=== PATIENT | male | born 1955 | race Caucasian/White ===

== ENCOUNTER 2023-05-20 14:30 | Inpatient (IN) | payer MEDICARE, OTHER, SELFPAY ==
[2023-05-20] VITALS (78 sets, daily range): BP systolic 96–143; BP diastolic 59–110; PULSE 74–130; RESP 8–33; TEMP 36.4–36.6; O2SAT 82–100; BMI 33.0; BMI 34.7
--- NOTE | 2023-05-20 14:43 | ECG_ITS ---
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
--- NOTE | 2023-05-20 14:45 | CT_ITS ---
[address] [address] Patient Name: BLANCA ADAMSON MRN: [id number] date: 1955 Sex: M Assigned Patient Location: ED.MAIN Current Patient Location: Accession/Order Number: [id number] Exam Date: 05/20/2023 16:00 Report Date: 05/20/2023 16:52 At the request of: ERYN DEL REAL Procedure: CT angio chest EXAM: CT angio chest HISTORY: PE COMPARISON: PET/CT from 12/05/[address] from 05/24/2022 TECHNIQUE: CT chest with intravenous contrast was performed with timing for the evaluation for pulmonary arteries. Multiplanar reformats were performed. MIP (maximum intensity projection) images or 3D post processing was performed. Dose reduction techniques were achieved by using automated exposure control and/or adjustment of mA and/or kV according to patient size and/or use of iterative reconstruction technique. FINDINGS: Lungs: Interval development of right lung volume loss with shift of the mediastinum to the right. Small to moderate right pleural effusion with right lower lobe consolidation, representing aspiration pneumonia. Mild bilateral centrilobular emphysema. Airways: Secretion is noted in right bronchus and right lower lobe bronchioles. Airways patent. Mediastinum: No adenopathy. Aorta: No aneurysm. Cardiac: Normal size. No pericardial effusion. Pulmonary vasculature: Diagnostic opacification of pulmonary arteries without evidence of pulmonary embolus. Normal morphology. Bones: No acute bony abnormality. Axilla: No adenopathy. Thyroid gland: No abnormality demonstrated on provided imaging. Soft tissues: Unremarkable. Upper abdomen: Small hiatal hernia. Additional findings: None. CT/CT angio chest IMPRESSION: No acute pulmonary embolism. Interval development of right lung volume loss with shift of the mediastinum to the right. Secretion is noted in right bronchus and right lower lobe bronchioles. Small to moderate right pleural effusion with right lower lobe consolidation, representing aspiration pneumonia. Electronically authenticated by: HELDER NUNN Date: 05/20/2023 16:52
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
[2023-05-20] MEDS: ALBUTEROL SULFATE 2.5 MG/3 ML VIAL NEB IH (15:15)
[2023-05-20 15:16] LABS: Basophils Percent Auto 0.2 % (0.2-2.0); Hematocrit 37.6 % (42.0-54.0); Hemoglobin 11.1 g/dL (14.0-18.0); Immature Granulocytes Abs Auto 0.13 10^3/uL (0.00-0.03); Immature Granulocytes Pct Auto 1.5 % (0.0-0.5); Lymphocytes Absolute Auto 0.5 10^3/uL (1.2-3.8); Lymphocytes Percent Auto 5.6 % (20.5-60.0); Mean Corpuscular HGB Conc 29.5 g/dL (29.9-35.2); Mean Corpuscular Hemoglobin 29.7 pg (25.9-34.0); Mean Corpuscular Volume 100.5 fL (80.0-94.0); Mean Platelet Volume 10.3 fL (9.5-13.5); Monocytes Absolute Auto 0.2 10^3/uL (0.3-0.8); Monocytes Percent Auto 2.3 % (1.7-12.0); Neutrophils Percent Auto 90.4 % (43.0-75.0); Platelet Count 124 10^3/uL (150-450); Red Blood Count 3.74 10^6/uL (4.70-6.10); Red Cell Distribution Width 17.7 % (11.0-15.0); White Blood Count 8.9 10^3/uL (4.0-11.0); pH VBG 7.328 (7.330-7.430)
--- NOTE | 2023-05-20 15:24 | CT_ITS ---
[address] [address] Patient Name: BLANCA ADAMSON MRN: [id number] date: 1955 Sex: M Assigned Patient Location: ED.MAIN Current Patient Location: ED.MAIN Accession/Order Number: [id number] Exam Date: 05/20/2023 16:00 Report Date: 05/20/2023 16:38 At the request of: ERYN DEL REAL Procedure: CT head/brain wo con EXAMINATION: CT head/brain wo con, 05/20/2023 4:00 PM EDT HISTORY: Confusion COMPARISON: None. TECHNIQUE: CT scan of the head was performed without IV contrast. CT dose reduction technique was used, including Automated Exposure Control. FINDINGS: BRAIN PARENCHYMA/CSF SPACES: Ventricles are normal in size for age. There is no hemorrhage, mass effect or midline shift. There are no other significant findings. PARANASAL SINUSES: Mild right ethmoid sinus mucosal thickening. SKULL BASE AND CALVARIUM: Normal. EXTRACRANIAL SOFT TISSUES: Normal. CT/CT head/brain wo con IMPRESSION: 1. No acute intracranial abnormality. 2. Mild right ethmoid sinus mucosal thickening. 3. MRI would be more sensitive for acute infarct if clinically indicated. Electronically authenticated by: ASHLEY LIEBERMAN Date: 05/20/2023 16:38
[2023-05-20 15:35] LABS: Partial Thromboplastin Time 23.5 sec (22.3-36.2); Prothrombin Time 9.8 sec (9.0-11.6)
[2023-05-20 15:40] LABS: pH ABG 7.378 (7.350-7.450)
[2023-05-20 15:41] LABS: Allen Test POSITIVE (POSITIVE); Base Excess ABG 28.3 mmol/L (-2.0-2.0); HCO3 ABG 53.5 mmol/L (22.0-26.0); Liters per Minute 2; O2 Mode NC; Oxygen Saturation ABG 52.9 %; PO2 ABG <30.1 mmHg (80.0-100.0); Puncture Site LR
[2023-05-20 15:42] LABS: ABG PCO2 90.9 mmHg (35.0-45.0)
[2023-05-20 15:43] LABS: INR <0.93
[2023-05-20 16:06] LABS: Alanine Aminotransferase 47 U/L (16-63); Albumin Globulin Ratio 0.9; Alkaline Phosphatase 134 U/L (46-116); Anion Gap 2.8; Aspartate Amino Transferase 8 U/L (15-37); BUN Creatinine Ratio 14.2; Bilirubin Total 0.4 mg/dL (0.2-1.0); Calcium 8.8 mg/dL (8.5-10.1); Carbon Dioxide 47.4 mmol/L (21.0-32.0); Estimated GFR (African America >60 (>=60); Estimated GFR (Non-African Ame >60 (>=60); Globulin 3.4 g/dL; Potassium 4.2 mmol/L (3.5-5.1); Sodium 128 mmol/L (136-145); Total Protein 6.4 g/dL (6.4-8.2)
[2023-05-20 16:08] LABS: Chloride 82 mmol/L (98-107)
[2023-05-20 16:09] LABS: Glucose 600 mg/dL (74-106)
[2023-05-20] MEDS: INSULIN REGULAR 300 UNITS/3 ML 12 UNIT SUBQ (16:28)
[2023-05-20] MEDS: 0.9 % SODIUM CHLORIDE 1,000 ML 250 ML IV (16:29)
[2023-05-20 17:18] LABS: Glucometer 507 mg/dL (74-106)
[2023-05-20] MEDS: LEVOFLOXACIN IN DEXTROSE 5 % 750 MG/150 ML IV.SOLN 100 MG IV (17:51)
--- NOTE | 2023-05-20 19:30 | P.HP_ITS ---
H&P: HPI History of Present Illness Chief complaint: SHORTNESS OF BREATH-HYPERCARBIA, ASPIRATION PNEUM Narrative: Patient presented to the emergency with increasing shortness of breath. He does have a history of lung cancer. He has been through chemotherapy as well as immunotherapy. The immunotherapy may have lost some inflammation in his chest that he had difficulty with patient is in the right upper portion of his chest. Unable to be drained. Cancer is in the right lower lobe of the lung. He had evaluation for possible surgical resection but based on his pulmonary function study he was not a candidate. Information provided by and daughter in ER found to have significant hypoxia with significant hypercapnia. Placed on BiPAP with improvement. Admitted to ICU. Fluid Review of Systems ROS Status of ROS 10 or more systems reviewed and unremarkable except as noted in history and below [facility] Medical History (Updated 05/20/23 @ 19:01 by Naina Grigsby RN) Surgical History (Updated 05/20/23 @ 18:55 by Naina Grigsby RN) Family History (Updated 05/20/23 @ 18:54 by Naina Grigsby RN) Mother Family history of CHF (congestive heart failure) Brother Family history of CHF (congestive heart failure) Family history of cancer Family history of diabetes mellitus Family history of myocardial infarction Family history of stroke Family history of hypertension Father Family history of cancer Social History (Updated 05/20/23 @ 18:55 by Naina Grigsby RN) Within the past year, how often did you have a drink containing alcohol: never Score interpretation: A score less than 4 is consistent with normal alcohol consumption. Smoking status: Former smoker Non-prescribed substance use: denies use Highest level of school completed/degree received: high school graduate Gender Identity: male Meds Home Medications and Allergies Home Medications Medication Instructions Recorded Confirmed Type albuterol sulfate 2.5 mg/3 mL 2.5 mg inhalation Q6H 05/20/23 05/20/23 History (0.083 %) solution for nebulization apixaban 5 mg tablet (Eliquis) 5 mg PO Q12H 05/20/23 05/20/23 History diltiazem HCl 120 mg 120 mg PO Q24H 05/20/23 05/20/23 History capsule,extended release 24 hr fluconazole 200 mg tablet 400 mg PO .every week 05/20/23 05/20/23 History furosemide 20 mg tablet (Lasix) 40 mg PO BID 05/20/23 05/20/23 History gabapentin 100 mg capsule 400 mg PO Q8H 05/20/23 05/20/23 History levalbuterol HCl 1.25 mg/3 mL 1.25 mg inhalation Q6H 05/20/23 05/20/23 History solution for nebulization metoprolol succinate 50 mg 25 mg PO Q12H 05/20/23 05/20/23 History tablet,extended release 24 hr omeprazole 40 mg capsule,delayed 40 mg PO QDAY 05/20/23 05/20/23 History release ondansetron HCl 8 mg tablet 8 mg PO Q8H PRN nausea and vomiting 05/20/23 05/20/23 History prednisone 20 mg tablet 50 mg PO QDAY 05/20/23 05/20/23 History prochlorperazine maleate 10 mg 10 mg PO Q6H PRN nausea and 05/20/23 05/20/23 History tablet vomiting sulfamethoxazole 800 1 tab PO .3 times per week 05/20/23 05/20/23 History mg-trimethoprim 160 mg tablet Allergies Allergy/AdvReac Type Severity Reaction Status Date / Time bee venom protein (honey bee) Allergy Severe Verified 05/20/23 14:41 Exam Constitutional Vital Signs, click to edit/add: Last Vital Signs Temp 97.8 F 05/20/23 18:35 Pulse 105 H 05/20/23 22:34 Resp 18 05/20/23 22:34 BP 110/66 05/20/23 18:35 Pulse Ox 99 05/20/23 22:34 O2 Del Method Nasal Cannula 05/20/23 22:34 O2 Flow Rate 2 05/20/23 22:34 FiO2 28 05/20/23 18:53 Documenting provider has reviewed patient's vital signs: yes Common normals: apparent distress Chest Common normals: inspection of chest normal Respiratory Common normals: abnormal respiratory effort and not clear to ascultation bilaterally Effort & inspection: tachypneic and respiratory distress Auscultation: rhonchi and diminished lung sounds Cardio Common normals: regular rhythm Rate: tachycardic Results Labs Labs: Short CBC 05/20/23 Range/Units 14:55 WBC 8.9 (4.0-11.0) 10^3/uL Hgb 11.1 L (14.0-18.0) g/dL Hct 37.6 L (42.0-54.0) % Plt Count 124 L (150-450) 10^3/uL BMP 05/20/23 14:55 Sodium 128 L Potassium 4.2 Chloride 82 L* Carbon Dioxide 47.4 H BUN 17.0 Creatinine 1.20 Glucose 600 H* Calcium 8.8 Liver Function 05/20/23 Range/Units 14:55 Total Bilirubin 0.4 (0.2-1.0) mg/dL AST 8 L (15-37) U/L ALT 47 (16-63) U/L Alkaline Phosphatase 134 H (46-116) U/L Albumin 3.0 L (3.4-5.0) g/dL ABG ABG results: 05/20/23 05/20/23 05/20/23 14:55 15:35 21:05 ABG pH 7.378 7.476 H ABG pCO2 90.9 H* 69.7 H* ABG pO2 <30.1 L 84.7 ABG HCO3 53.5 H 51.4 H ABG O2 Saturation 52.9 97.4 ABG Base Excess 28.3 H 27.8 H VBG pH 7.328 L VBG pCO2 99.0 H* Assessment and Plan Assessment and Plan (1) Hypercarbia: (2) COPD exacerbation: (3) Altered mental status: (4) Aspiration pneumonia: (5) Acute hyperglycemia: Plan Sinus tachycardia, respiratory distress, mild hypotension, hyponatremia, altered mental status secondary to hypercapnic respiratory failure with acute hypoxia- PCO2 over 90. Patient was placed on BiPAP. After period of time on the BiPAP patient did improvement in his mentation. He is alert and oriented currently. Still with significant respiratory distress in the ICU on BiPAP. Patient with an extensive lung history with severe end-stage COPD as well as lung cancer right-sided and right lung pneumonitis secondary to previous cancer treatments. No fluid is accessible for drainage. He has been tried on diuretics to try to improve fluid. Patient will be admitted to the ICU with acute hypoxic and hypercapnic respiratory failure secondary to acute exacerbation of COPD. We will maintain on oral steroids. IV antibiotics. Frequent aerosol treatments. Patient with fluid on lungs, has attempted to have diuresis with oral agents, will try Bumex drip to see if he responds well to that. Acute hypoxic and hypercapnic respiratory failure-on BiPAP, will try patient off of BiPAP if we can improve his PCO2 less than 70. Severe uncontrolled diabetes mellitus-this is likely secondary to theFluid and lung infection.In the steroids he is on to improve the pneumonitis.Place patient on home regiment plus insulin sliding scale. Insulin sliding scale likely need to be adjusted. Thrombocytopenia-monitor daily. This is likely a complication of all the above. Hyponatremia-this is likely result of the lung cancer. We will monitor daily.Unable to assess urine sodium secondary to diuresis provided prior to admission.
[2023-05-20] MEDS: BUMETANIDE 10 MG in 0.9 % SODIUM CHLORIDE 160 ML 20 MG IV (21:10)
[2023-05-20 21:11] LABS: Base Excess ABG 27.8 mmol/L (-2.0-2.0); HCO3 ABG 51.4 mmol/L (22.0-26.0); PO2 ABG 84.7 mmHg (80.0-100.0); pH ABG 7.476 (7.350-7.450)
[2023-05-20 21:12] LABS: Allen Test POS (POSITIVE); BIPAP Pressure 16/6; Fractionated Inspired Oxygen 28 %; O2 Mode BIPAP; Oxygen Saturation ABG 97.4 %; Puncture Site RIGHT RADIAL; Rate 16
[2023-05-20 21:14] LABS: ABG PCO2 69.7 mmHg (35.0-45.0)
[2023-05-20] MEDS: FERROUS SULFATE 325 MG TABLET PO (21:14)
[2023-05-20] MEDS: L. ACIDOPHILUS/L.BULGARICUS 1 PACKET GRAN.PACK PO (21:14)
[2023-05-20] MEDS: APIXABAN 5 MG TABLET PO (21:14)
[2023-05-20] MEDS: PROSTAT 15 GM PROTEIN/100 CAL 30 ML LIQUID PACKET FEED TUBE (21:15)
[2023-05-20] MEDS: GABAPENTIN 100 MG CAPSULE 400 MG PO (21:19)
[2023-05-20 21:29] LABS: Glucometer 306 mg/dL (74-106)
[2023-05-20] MEDS: INSULIN ASPART 300 UNIT/3 ML PEN SUBQ (21:30)
[2023-05-20] MEDS: LEVALBUTEROL HCL 1.25 MG/3 ML VIAL NEB IH (22:29)
[2023-05-21] VITALS (101 sets, daily range): BP systolic 90–135; BP diastolic 70–92; PULSE 87–133; RESP 0–46; TEMP 36.4–36.9; O2SAT 83–99; BMI 34.6
[2023-05-21 04:30] LABS: pH VBG 7.452 (7.330-7.430)
[2023-05-21 04:31] LABS: PCO2 VBG 77.6 mmHg (40.0-52.0)
[2023-05-21 04:36] LABS: Basophils Percent Auto 0.2 % (0.2-2.0); Hematocrit 36.6 % (42.0-54.0); Hemoglobin 11.1 g/dL (14.0-18.0); Immature Granulocytes Abs Auto 0.13 10^3/uL (0.00-0.03); Immature Granulocytes Pct Auto 1.5 % (0.0-0.5); Lymphocytes Absolute Auto 0.5 10^3/uL (1.2-3.8); Mean Corpuscular HGB Conc 30.3 g/dL (29.9-35.2); Mean Corpuscular Hemoglobin 29.1 pg (25.9-34.0); Mean Corpuscular Volume 96.1 fL (80.0-94.0); Mean Platelet Volume 10.1 fL (9.5-13.5); Monocytes Absolute Auto 0.3 10^3/uL (0.3-0.8); Monocytes Percent Auto 3.1 % (1.7-12.0); Neutrophils Absolute Auto 8.1 10^3/uL (1.4-6.5); Neutrophils Percent Auto 90.2 % (43.0-75.0); Platelet Count 127 10^3/uL (150-450); Red Blood Count 3.81 10^6/uL (4.70-6.10); Red Cell Distribution Width 18.1 % (11.0-15.0); White Blood Count 8.9 10^3/uL (4.0-11.0)
[2023-05-21 05:11] LABS: Alanine Aminotransferase 49 U/L (16-63); Albumin Globulin Ratio 0.9; Alkaline Phosphatase 89 U/L (46-116); Anion Gap 3.5; Aspartate Amino Transferase 13 U/L (15-37); BUN Creatinine Ratio 16.1; Bilirubin Total 0.4 mg/dL (0.2-1.0); Calcium 8.6 mg/dL (8.5-10.1); Carbon Dioxide 47.2 mmol/L (21.0-32.0); Chloride 86 mmol/L (98-107); Estimated GFR (African America >60 (>=60); Estimated GFR (Non-African Ame >60 (>=60); Globulin 3.3 g/dL; Glucose 325 mg/dL (74-106); Potassium 3.7 mmol/L (3.5-5.1); Sodium 133 mmol/L (136-145); Total Protein 6.3 g/dL (6.4-8.2)
[2023-05-21] MEDS: LEVALBUTEROL HCL 1.25 MG/3 ML VIAL NEB IH ×4 (05:21→21:08)
[2023-05-21] MEDS: IPRATROPIUM BROMIDE 0.5 MG/2.5 ML VIAL.NEB IH ×4 (05:21→21:09)
[2023-05-21] MEDS: GABAPENTIN 100 MG CAPSULE 400 MG PO ×3 (05:50→22:28)
--- NOTE | 2023-05-21 06:40 | PC.NURSE ---
Patient removed oxygen and SPO2 at 85% on room air.
[2023-05-21] MEDS: INSULIN ASPART 300 UNIT/3 ML PEN SUBQ ×3 (07:32→22:35)
--- NOTE | 2023-05-21 07:41 | CM.NOTE ---
Rounds made with Dr. Stanley, pt up in chair this morning. Pt still having confusion. Dr. Stanley will come back after AM meeting to speak with pt's regarding plan of care.
[2023-05-21 07:54] LABS: Glucometer 432 mg/dL (74-106)
[2023-05-21] MEDS: DILTIAZEM HCL 120 MG CAP.ER.24H PO (08:41)
[2023-05-21] MEDS: L. ACIDOPHILUS/L.BULGARICUS 1 PACKET GRAN.PACK PO ×2 (08:42→22:27)
[2023-05-21] MEDS: METOPROLOL SUCCINATE 50 MG TAB.ER.24H 25 MG PO ×2 (08:42→22:27)
[2023-05-21] MEDS: FERROUS SULFATE 325 MG TABLET PO ×2 (08:42→22:24)
[2023-05-21] MEDS: PREDNISONE 20 MG TABLET 50 MG PO (08:42)
[2023-05-21] MEDS: APIXABAN 5 MG TABLET PO ×2 (08:42→22:24)
[2023-05-21] MEDS: PROSTAT 15 GM PROTEIN/100 CAL 30 ML LIQUID PACKET FEED TUBE ×2 (08:43→22:23)
--- NOTE | 2023-05-21 08:43 | CM.NOTE ---
Important Message From Medicare discussed with pt and , both verbalizes understanding and signs paper d/t underlying confusion with pt. Original given to pt and copy placed on pt's chart.
--- NOTE | 2023-05-21 10:33 | MR_ITS ---
The [address] [address] Patient Name: BLANCA ADAMSON MRN: [id number] date: 1955 Sex: M Assigned Patient Location: ICU Current Patient Location: ICU Accession/Order Number: [id number] Exam Date: 05/21/2023 12:10 Report Date: 05/21/2023 12:38 At the request of: GABRIEL LR Procedure: MR head/brain wo con EXAM: MR head/brain wo con HISTORY: ams, hx cancer - lung COMPARISON: CT head 05/20/2023. TECHNIQUE: Axial diffusion-weighted and sagittal T1 noncontrast imaging of the head was performed. Exam was terminated prematurely secondary to lack of patient inability to cooperate with exam. FINDINGS: There is no restricted diffusion. No overt evidence for or susceptibility artifact to suggest recent hemorrhage. Midline structures are peripherally formed. No overt edema is seen. MR/MR head/brain wo con IMPRESSION: 1. No acute ischemia. 2. No overt edema to suggest intracranial metastatic disease although evaluation is extremely suboptimal given only diffusion-weighted and T1 sagittal imaging performed. Electronically authenticated by: ABIODUN CRUZ Date: 05/21/2023 12:38
--- NOTE | 2023-05-21 10:35 | XR_ITS ---
The [address] [address] Patient Name: BLANCA ADAMSON MRN: [id number] date: 1955 Sex: M Assigned Patient Location: ICU Current Patient Location: ICU Accession/Order Number: [id number] Exam Date: 05/21/2023 12:21 Report Date: 05/21/2023 12:42 At the request of: GABRIEL LR Procedure: XR chest 1V EXAMINATION: XR chest 1V 05/21/2023 9:40 AM PDT HISTORY: assess fluid TECHNIQUE: Single frontal view of the chest acquired. COMPARISONS: CT chest 05/20/2023. FINDINGS: Lines/tubes/other: None. Heart and mediastinum: Similar rightward mediastinal shift. Bones: No acute osseous abnormality. Lungs: Diffuse opacification of the right lung, likely similar when accounting for differences in exam technique. The left lung is clear. Pleura: Right-sided pleural effusion is likely similar. No significant left pleural effusion. No pneumothorax. Other: None. XR/XR chest 1V IMPRESSION: Similar appearance of the chest compared with 05/20/2023 when accounting for differences in exam technique. Electronically authenticated by: ENMA FERNANDEZ Date: 05/21/2023 12:42
--- NOTE | 2023-05-21 10:38 | P.PN_ITS ---
Progress Note: Subjective Subjective Interval history: Awake and up in chair this morning, does not initially know where he was but after looking around he was able to remember the that he is in the hospital. Does not recall my name. Discussion with family and they do not believe his mental status is significantly improved from previous day although his breathing pattern has Exam Constitutional Vital Signs, click to edit/add: Last Vital Signs Temp 98.0 F 05/21/23 10:18 Pulse 88 05/21/23 10:18 Resp 16 05/21/23 10:18 BP 135/92 H 05/21/23 10:18 Pulse Ox 92 L 05/21/23 10:18 O2 Del Method Room Air 05/21/23 10:18 O2 Flow Rate 1 05/21/23 06:30 FiO2 28 05/20/23 18:53 Documenting provider has reviewed patient's vital signs: yes Common normals: apparent distress Chest Common normals: inspection of chest normal Respiratory Common normals: abnormal respiratory effort and not clear to ascultation bilaterally Effort & inspection: non tachypneic and no respiratory distress Auscultation: rhonchi and diminished lung sounds Cardio Common normals: regular rhythm Rate: tachycardic Progress Note: Objective Labs Labs: Short CBC 05/20/23 05/21/23 Range/Units 14:55 04:22 WBC 8.9 8.9 (4.0-11.0) 10^3/uL Hgb 11.1 L 11.1 L (14.0-18.0) g/dL Hct 37.6 L 36.6 L (42.0-54.0) % Plt Count 124 L 127 L (150-450) 10^3/uL BMP 05/20/23 05/21/23 14:55 04:22 Sodium 128 L 133 L Potassium 4.2 3.7 Chloride 82 L* 86 L Carbon Dioxide 47.4 H 47.2 H BUN 17.0 19.0 H Creatinine 1.20 1.18 Glucose 600 H* 325 H Calcium 8.8 8.6 Liver Function 05/20/23 05/21/23 Range/Units 14:55 04:22 Total Bilirubin 0.4 0.4 (0.2-1.0) mg/dL AST 8 L 13 L (15-37) U/L ALT 47 49 (16-63) U/L Alkaline Phosphatase 134 H 89 (46-116) U/L Albumin 3.0 L 3.0 L (3.4-5.0) g/dL Progress Note: A&P Assessment and Plan (1) Hypercarbia: (2) COPD exacerbation: (3) Altered mental status: (4) Aspiration pneumonia: (5) Acute hyperglycemia: Plan Sinus tachycardia, respiratory distress, mild hypotension, hyponatremia, altered mental status secondary to hypercapnic respiratory failure with acute hypoxia- PCO2 over 90.? Patient was placed on BiPAP.? Able to be weaned off of the BiPAP last night. CO2 still likely high. Not sure what his baseline CO2 is. Able to cut down his oxygen down to 1 L and his saturations so far have held above 90. Patient not up and moving it however. At home they can drop and down into the 8586 range with activity but rebounds within the next few minutes. We will place consultation to pulmonology for both acute care and long-term care at discharge. Altered mental status persisting. I believe it is somewhat better than previous day although family states they do not believe so. Will look for other sources of altered mental status.Checking ammonia, MRI scan of head, UA. Patient with fluid on lungs, -good diuresis of 2 L. We will change patient to IV Lasix twice daily Acute hypoxic and hypercapnic respiratory [id number] to pulmonology s Severe uncontrolled diabetes mellitus- this is relatively new for the patient. He is not taking any medications as an outpatient. we will start Invokana as it may help with his fluid status as well as sugar. Add metformin as standard dosing - continue sliding scale here which we will adjust. She states they were told his sugar was over 300 approximately 2 weeks ago. No medication started at that time. Thrombocytopenia-monitor daily.?-somewhat improved Hyponatremia-this is likely result of the lung cancer.? Continue to moderate protein calorie malnutrition-diet managementmonitor.
[2023-05-21 11:12] LABS: Ammonia 33 umol/L (11-32)
[2023-05-21] MEDS: FUROSEMIDE 40 MG/4 ML VIAL IVP ×2 (11:17→22:24)
[2023-05-21] MEDS: CANAGLIFLOZIN 100 MG TABLET PO (11:22)
[2023-05-21 11:26] LABS: Glucometer 205 mg/dL (74-106)
[2023-05-21 12:15] LABS: pH ABG 7.529 (7.350-7.450)
[2023-05-21 12:18] LABS: ABG PCO2 65.4 mmHg (35.0-45.0); Base Excess ABG 31.9 mmol/L (-2.0-2.0); HCO3 ABG 54.6 mmol/L (22.0-26.0); PO2 ABG 60.5 mmHg (80.0-100.0)
[2023-05-21 12:19] LABS: Allen Test POSITIVE (POSITIVE); O2 Mode NC; Oxygen Saturation ABG 93.7 %
[2023-05-21 12:20] LABS: Puncture Site RR
--- NOTE | 2023-05-21 15:11 | P.CN_ITS ---
Consult Note: HPI Data of Consult Consult date: 05/21/23 Requesting Physician: Darrell Stanley MD Primary Care Provider: Non-Staff Physician, MD Consult Narrative Reason for consult: Bilateral lower leg edema and blisters cc:: CC: Darrell Stanley MD [facility] Medical History (Updated 05/22/23 @ 12:15 by Carl Blue DPM) Surgical History (Updated 05/20/23 @ 18:55 by Naina Grigsby RN) Family History (Updated 05/20/23 @ 18:54 by Naina Grigsby RN) Mother Family history of CHF (congestive heart failure) Brother Family history of CHF (congestive heart failure) Family history of cancer Family history of diabetes mellitus Family history of myocardial infarction Family history of stroke Family history of hypertension Father Family history of cancer Social History (Updated 05/20/23 @ 18:55 by Naina Grigsby RN) Within the past year, how often did you have a drink containing alcohol: never Score interpretation: A score less than 4 is consistent with normal alcohol consumption. Smoking status: Former smoker Non-prescribed substance use: denies use Highest level of school completed/degree received: high school graduate Gender Identity: male Meds Home Medications and Allergies Home Medications Medication Instructions Recorded Confirmed Type albuterol sulfate 2.5 mg/3 mL 2.5 mg inhalation Q6H 05/20/23 05/20/23 History (0.083 %) solution for nebulization apixaban 5 mg tablet (Eliquis) 5 mg PO Q12H 05/20/23 05/20/23 History diltiazem HCl 120 mg 120 mg PO Q24H 05/20/23 05/20/23 History capsule,extended release 24 hr fluconazole 200 mg tablet 400 mg PO .every week 05/20/23 05/20/23 History furosemide 20 mg tablet (Lasix) 60 mg PO QDAY 05/20/23 05/22/23 History gabapentin 100 mg capsule 400 mg PO Q8H 05/20/23 05/20/23 History levalbuterol HCl 1.25 mg/3 mL 1.25 mg inhalation Q6H 05/20/23 05/20/23 History solution for nebulization metoprolol succinate 50 mg 25 mg PO Q12H 05/20/23 05/20/23 History tablet,extended release 24 hr omeprazole 40 mg capsule,delayed 40 mg PO QDAY 05/20/23 05/20/23 History release ondansetron HCl 8 mg tablet 8 mg PO Q8H PRN nausea and vomiting 05/20/23 05/20/23 History prednisone 20 mg tablet 50 mg PO QDAY 05/20/23 05/20/23 History prochlorperazine maleate 10 mg 10 mg PO Q6H PRN nausea and 05/20/23 05/20/23 History tablet vomiting sulfamethoxazole 800 1 tab PO .3 times per week 05/20/23 05/20/23 History mg-trimethoprim 160 mg tablet blood sugar diagnostic (OneTouch #100 ea 05/22/23 Rx Ultra Test strips) blood-glucose meter (OneTouch #1 ea 05/22/23 Rx Ultra2 Meter) empagliflozin 10 mg tablet 10 mg PO QAM #30 tabs 05/22/23 Rx (Jardiance) lancets 30 gauge (OneTouch #100 ea 05/22/23 Rx UltraSoft 2 Lancet) levofloxacin 750 mg tablet 750 mg PO DAILY 7 days #7 tabs 05/22/23 Rx metformin 500 mg tablet 500 mg PO BIDWM #60 tabs 05/22/23 Rx Allergies Allergy/AdvReac Type Severity Reaction Status Date / Time bee venom protein (honey bee) Allergy Severe Verified 05/20/23 14:41 Exam Constitutional Vital Signs, click to edit/add: Last Vital Signs Temp 97.5 F L 05/21/23 11:12 Pulse 114 H 05/21/23 13:55 Resp 18 05/21/23 11:12 BP 112/70 05/21/23 11:12 Pulse Ox 94 L 05/21/23 11:29 O2 Del Method Nasal Cannula 05/21/23 11:29 O2 Flow Rate 1 05/21/23 11:29 FiO2 28 05/20/23 18:53 Results Labs Labs: Short CBC 05/20/23 05/21/23 Range/Units 14:55 04:22 WBC 8.9 8.9 (4.0-11.0) 10^3/uL Hgb 11.1 L 11.1 L (14.0-18.0) g/dL Hct 37.6 L 36.6 L (42.0-54.0) % Plt Count 124 L 127 L (150-450) 10^3/uL BMP 05/20/23 05/21/23 14:55 04:22 Sodium 128 L 133 L Potassium 4.2 3.7 Chloride 82 L* 86 L Carbon Dioxide 47.4 H 47.2 H BUN 17.0 19.0 H Creatinine 1.20 1.18 Glucose 600 H* 325 H Calcium 8.8 8.6 Liver Function 05/20/23 05/21/23 Range/Units 14:55 04:22 Total Bilirubin 0.4 0.4 (0.2-1.0) mg/dL AST 8 L 13 L (15-37) U/L ALT 47 49 (16-63) U/L Alkaline Phosphatase 134 H 89 (46-116) U/L Albumin 3.0 L 3.0 L (3.4-5.0) g/dL ABG ABG results: 05/20/23 05/20/23 05/20/23 14:55 15:35 21:05 ABG pH 7.378 7.476 H ABG pCO2 90.9 H* 69.7 H* ABG pO2 <30.1 L 84.7 ABG HCO3 53.5 H 51.4 H ABG O2 Saturation 52.9 97.4 ABG Base Excess 28.3 H 27.8 H VBG pH 7.328 L VBG pCO2 99.0 H* 05/21/23 05/21/23 04:22 11:55 ABG pH 7.529 H* ABG pCO2 65.4 H* ABG pO2 60.5 L ABG HCO3 54.6 H ABG O2 Saturation 93.7 ABG Base Excess 31.9 H VBG pH 7.452 H VBG pCO2 77.6 H* Assessment and Plan Assessment and Plan (1) COPD exacerbation: Plan Patient seen in ICU at 1230PM today for BLE edema and blisters. Arterial blood gases being drawn and going to MRI. Assessment done and new dressing applied to open blistered area to left dorsal foot prior to leaving room for testing. BLE with some areas of redness, not cellulitis, more irritation/swelling discoloration. reports she is using neosporin on open blister. Cautioned against using triple antibiotic ointment as this can cause sensitivity when using halfway. Education provided to daughter and regarding mild compression, elevation of extremity and switching topical treatment. They are in agreement with plan. Recommend: xeroform gauze to open blister to left dorsal foot daily. Moisturizer to BLE intact dry skin. Single layer tubigrip to BLE. Will send note and orders to Dr. Stanley for review. Will return to patient's room this afternoon to bring single layer tubigrip this afternoon.
--- NOTE | 2023-05-21 15:26 | PM.PLCN ---
History of Present Illness History of Present Illness Consult date: 05/21/23 Requesting physician: Darrell Stanley Chief complaint: Dyspnea, confusion Narrative: 68yo male presents to [facility] with dyspnea. History reviewed - difficult to piece together as majority of treatment was through the [facility]. The patient initially presented to [facility] ER on 02/16/2022 with hemoptysis.? CT chest was performed and revealed a soft tissue occlusion of the bronchus intermedius with partial RML and RLL collapse with associated right lower lobe cavitary mass, right hilar lymphadenopathy, right pleural effusion, scattered bilateral pulmonary nodules, and centrilobular emphysema.? The patient requested [facility] oncology referral.? He was seen by them who performed a bronchoscopy on 03/02/2022; he was subsequently diagnosed with a non-small cell lung cancer per the . He had radiation and chemotherapy, and eventually was started on Opdivo (nivolumab). He had a PET 03/27/2023 with nearly the entire right lung PET positive. It was suspected that Opdivo caused pneumonitis. The patient went to [facility] and then transferred to [facility]. The history becomes confusing at this point...the pulmonary team there was unclear exactly what this was, but they stated they were not going to do a biospy because it was blocked. I asked why did they not check why it was blocked and the did not know. Apparently nothing came of this and he was eventually discharged home. Over the past week, he became more confused, developed twitching, and was more dyspneic. He was advised to go to the nearest ER. Upon arrival he was hypoxic with SpO2 in the 50's. ABG showed pH of 3.78 but pCO2 was 90.9. He was placed on a BiPAP. Subsequent ABGs were performed which showed development of a post-hypercapnic metabolic alkalosis. The had labs done earlier in the month which showed a serum bicarbonate level climbing from ~30 to ~50. The patient remains confused. MRI of the brain was ordered to evaluate for mets, but he was uncooperative on the table and only a single series was able to be completed (with no grossly apparent mets identified). During this whole time, he has never established with a wafer polishing lead worker, nor even has a PCP. Review of Systems ROS Narrative Patient is able to give some history, but then becomes confused at times. He states he could not breathe well, but it is improving. No hemoptysis. No chest pain. Denies sweats or fevers. He denies any aspiration... states he vomited, but did not choke . No falls. Initially had a tremor, but that is slightly better. [facility] Medical History (Updated 05/20/23 @ 19:01 by Naina Grigsby RN) Surgical History (Updated 05/20/23 @ 18:55 by Naina Grigsby RN) Family History (Updated 05/20/23 @ 18:54 by Naina Grigsby RN) Mother Family history of CHF (congestive heart failure) Brother Family history of CHF (congestive heart failure) Family history of cancer Family history of diabetes mellitus Family history of myocardial infarction Family history of stroke Family history of hypertension Father Family history of cancer Social History (Updated 05/20/23 @ 18:55 by Naina Grigsby RN) Within the past year, how often did you have a drink containing alcohol: never Score interpretation: A score less than 4 is consistent with normal alcohol consumption. Smoking status: Former smoker Non-prescribed substance use: denies use Highest level of school completed/degree received: high school graduate Gender Identity: male Meds Home Medications and Allergies Home Medications Medication Instructions Recorded Confirmed Type albuterol sulfate 2.5 mg/3 mL 2.5 mg inhalation Q6H 05/20/23 05/20/23 History (0.083 %) solution for nebulization apixaban 5 mg tablet (Eliquis) 5 mg PO Q12H 05/20/23 05/20/23 History diltiazem HCl 120 mg 120 mg PO Q24H 05/20/23 05/20/23 History capsule,extended release 24 hr fluconazole 200 mg tablet 400 mg PO .every week 05/20/23 05/20/23 History furosemide 20 mg tablet (Lasix) 40 mg PO BID 05/20/23 05/20/23 History gabapentin 100 mg capsule 400 mg PO Q8H 05/20/23 05/20/23 History levalbuterol HCl 1.25 mg/3 mL 1.25 mg inhalation Q6H 05/20/23 05/20/23 History solution for nebulization metoprolol succinate 50 mg 25 mg PO Q12H 05/20/23 05/20/23 History tablet,extended release 24 hr omeprazole 40 mg capsule,delayed 40 mg PO QDAY 05/20/23 05/20/23 History release ondansetron HCl 8 mg tablet 8 mg PO Q8H PRN nausea and vomiting 05/20/23 05/20/23 History prednisone 20 mg tablet 50 mg PO QDAY 05/20/23 05/20/23 History prochlorperazine maleate 10 mg 10 mg PO Q6H PRN nausea and 05/20/23 05/20/23 History tablet vomiting sulfamethoxazole 800 1 tab PO .3 times per week 05/20/23 05/20/23 History mg-trimethoprim 160 mg tablet Allergies Allergy/AdvReac Type Severity Reaction Status Date / Time bee venom protein (honey bee) Allergy Severe Verified 05/20/23 14:41 Exam Constitutional Vital Signs, click to edit/add: Last Vital Signs Temp 97.5 F L 05/21/23 11:12 Pulse 114 H 05/21/23 13:55 Resp 18 05/21/23 11:12 BP 112/70 05/21/23 11:12 Pulse Ox 94 L 05/21/23 11:29 O2 Del Method Nasal Cannula 05/21/23 11:29 O2 Flow Rate 1 05/21/23 11:29 FiO2 28 05/20/23 18:53 Common normals: no apparent distress HENMT Other: Wearing O2 per [place] Respiratory Other: Breathing does not appear labored. No conversational dyspnea. Crackles/mild rhonchi on the left. Diminished breath sounds in right upper lung field and absent in right lower. Dullness in right lower lung field as well. Cardio Rate: regular rate Rhythm: regular rhythm GI Inspection: normal to inspection Extremity General: no edema Neuro Other: When patient went to sit on the side of the bed, he did not appear to be completely steady. Psych Other: He is confused at times. His lunch was delivered to him. He took the salad off his tray and put it on his bed, saying that it was ordered for his . She stated it was his salad. He did not believe he ordered the salad for himself. Results Laboratory Findings ABG, PT/INR, D-dimer: ABG ABG pH 7.529 (7.350-7.450) H* 05/21/23 11:55 ABG pCO2 65.4 mmHg (35.0-45.0) H* 05/21/23 11:55 ABG pO2 60.5 mmHg (80.0-100.0) L 05/21/23 11:55 ABG O2 Saturation 93.7 % 05/21/23 11:55 PT/INR, D-dimer PT 9.8 sec (9.0-11.6) 05/20/23 14:55 INR <0.93 05/20/23 14:55 Abnormal lab findings: Abnormal Labs 05/20/23 05/20/23 05/20/23 14:55 15:35 17:17 RBC 3.74 L Hgb 11.1 L Hct 37.6 L MCV 100.5 H MCHC 29.5 L RDW 17.7 H Plt Count 124 L Neut % (Auto) 90.4 H Lymph % (Auto) 5.6 L Eos % (Auto) 0.0 L Neut # (Auto) 8.0 H Lymph # (Auto) 0.5 L [place] # (Auto) 0.2 L Abs Immat Gran (auto) 0.13 H Imm/Tot Granulo (auto) 1.5 H ABG pH ABG pCO2 90.9 H* ABG pO2 <30.1 L ABG HCO3 53.5 H ABG Base Excess 28.3 H VBG pH 7.328 L VBG pCO2 99.0 H* Sodium 128 L Chloride 82 L* Carbon Dioxide 47.4 H BUN Glucose 600 H* AST 8 L Alkaline Phosphatase 134 H Ammonia Total Protein Albumin 3.0 L POC Glucose 507 H* 05/20/23 05/20/23 05/21/23 21:05 21:28 04:22 RBC 3.81 L Hgb 11.1 L Hct 36.6 L MCV 96.1 H MCHC RDW 18.1 H Plt Count 127 L Neut % (Auto) 90.2 H Lymph % (Auto) 5.0 L Eos % (Auto) 0.0 L Neut # (Auto) 8.1 H Lymph # (Auto) 0.5 L [place] # (Auto) Abs Immat Gran (auto) 0.13 H Imm/Tot Granulo (auto) 1.5 H ABG pH 7.476 H ABG pCO2 69.7 H* ABG pO2 ABG HCO3 51.4 H ABG Base Excess 27.8 H VBG pH 7.452 H VBG pCO2 77.6 H* Sodium 133 L Chloride 86 L Carbon Dioxide 47.2 H BUN 19.0 H Glucose 325 H AST 13 L Alkaline Phosphatase Ammonia Total Protein 6.3 L Albumin 3.0 L POC Glucose 306 H 05/21/23 05/21/23 05/21/23 07:31 10:48 11:15 RBC Hgb Hct MCV MCHC RDW Plt Count Neut % (Auto) Lymph % (Auto) Eos % (Auto) Neut # (Auto) Lymph # (Auto) [place] # (Auto) Abs Immat Gran (auto) Imm/Tot Granulo (auto) ABG pH ABG pCO2 ABG pO2 ABG HCO3 ABG Base Excess VBG pH VBG pCO2 Sodium Chloride Carbon Dioxide BUN Glucose AST Alkaline Phosphatase Ammonia 33 H Total Protein Albumin POC Glucose 432 H 205 H 05/21/23 11:55 RBC Hgb Hct MCV MCHC RDW Plt Count Neut % (Auto) Lymph % (Auto) Eos % (Auto) Neut # (Auto) Lymph # (Auto) [place] # (Auto) Abs Immat Gran (auto) Imm/Tot Granulo (auto) ABG pH 7.529 H* ABG pCO2 65.4 H* ABG pO2 60.5 L ABG HCO3 54.6 H ABG Base Excess 31.9 H VBG pH VBG pCO2 Sodium Chloride Carbon Dioxide BUN Glucose AST Alkaline Phosphatase Ammonia Total Protein Albumin POC Glucose Assessment and Plan Assessment and Plan (1) Aspiration pneumonia: Plan 1.? Acute exacerbation of COPD.? Centrilobular emphysema secondary to tobacco abuse.? Continue current treatment with bronchodilators, steroids. 2.? Non-small cell lung cancer.? Unclear metastatic to what degree.? PET on 03/27/2023 showed significant uptake in nearly the entire right lung.? states they thought it was pneumonitis from Opdivo.? My question is that pneumonitis by medication does not discriminate laterality?it should also be present in the left lung.? The near universal positive right lung is suspicious for some malignancy-associated condition, such as lymphangetic carcinomatosis.? Seeing that [facility] was unwilling to biopsy this makes me very concerned about doing anything here @ [facility].? It was suggested to the patient that referring back to [facility] would be the best option in this case. 3.? Loculated right effusion.? Effusion has been present since at least 02/16/2022.? Presumptive metastatic, associated with right lung cancer.? The location in the upper lung field is beyond my expertise for thoracentesis. 4.? Chronic hypercapnic respiratory failure.? This appears to have been developing over the past several weeks based on increasing serum bicarbonate levels.? Question diffusion impairment of the right lung (if abnormal PET findings represent diffuse lymphangetic carcinomatosis).? Regardless, the patient?s pH was compensated with HCO3- 47.4.? Now has post-hypercapnic metabolic alkalosis.? Can use BiPAP PRN at this point. 5.? Acute hypoxic respiratory failure.? Continue O2, goal SpO2 88-92% to prevent hyperoxic-induced hypercapnia. 6.? Aspiration pneumonia.? Working diagnosis for debris in bronchus intermedius.? Other concern is sloughing neoplasm, retained secretions, etc.? Currently on antibiotics.? ? extrinsic compression vs. endoluminal obstruction? 7.? Toxic metabolic encephalopathy.? Still confused despite lower pCO2.? Concerned for brain mets, but single series of MRI did not show any.? Question if this could be the beginning of terminal agitation? 8.? History of tobacco abuse.? 50+ pack-year history, quit last year. This patient's pulmonary status is tenuous, and I am somewhat unclear of what the goals of therapy are from oncology standpoint. Will need to obtain records from oncology to find out the plan of care. If further intervention is necessary, recommend transfer to a [facility] facility.
[2023-05-21 16:35] LABS: Glucometer 49 mg/dL (74-106)
[2023-05-21 17:00] LABS: Bilirubin Urine NEGATIVE (NEGATIVE); Blood Urine TRACE-I (NEGATIVE); Clarity Urine CLEAR (CLEAR); Color Urine LT. YELLOW (YELLOW); Glucose Urine UA NEGATIVE (NEGATIVE); Ketones Urine NEGATIVE (NEGATIVE); Leukocyte Esterase Urine NEGATIVE (NEGATIVE); Nitrite Urine NEGATIVE (NEGATIVE); Protein Urine NEGATIVE (NEG/TRACE); Specific Gravity Urine <=1.005 (1.005-1.025); Urobilinogen Urine 0.2 EU/dL (0.2-1.0)
[2023-05-21 17:07] LABS: Urine Microscopic Indicated YES
[2023-05-21 17:15] LABS: Bacteria Urine TRACE #/HPF (NONE SEEN); Mucus Urine NONE SEEN (NONE SEEN); RBC Urine 0-2 #/HPF (0-2); Squamous Epithelial Cell Urine RARE #/LPF (NONE/RARE); WBC Urine NONE SEEN #/HPF (NONE SEEN)
[2023-05-21 17:16] LABS: Cast Seen? NONE SEEN #/LPF (NONE SEEN); Crystals Seen? None Seen #/HPF (None Seen); Urine Culture Indicated ALREADY ORDERED
[2023-05-21 17:26] LABS: Glucometer 126 mg/dL (74-106)
[2023-05-21 18:49] LABS: Glucometer 184 mg/dL (74-106)
[2023-05-21] MEDS: LEVOFLOXACIN IN DEXTROSE 5 % 750 MG/150 ML IV.SOLN 100 MG IV (22:22)
[2023-05-21] MEDS: OMEPRAZOLE 40 MG CAPSULE.DR PO (22:28)
[2023-05-21 22:35] LABS: Glucometer 262 mg/dL (74-106)
[2023-05-22] VITALS (22 sets, daily range): BP systolic 101–119; BP diastolic 55–78; PULSE 88–115; RESP 12–20; TEMP 36.8; O2SAT 91–98
[2023-05-22 04:21] LABS: Basophils Percent Auto 0.2 % (0.2-2.0); Hematocrit 34.6 % (42.0-54.0); Hemoglobin 10.7 g/dL (14.0-18.0); Immature Granulocytes Abs Auto 0.09 10^3/uL (0.00-0.03); Immature Granulocytes Pct Auto 0.9 % (0.0-0.5); Lymphocytes Absolute Auto 0.9 10^3/uL (1.2-3.8); Lymphocytes Percent Auto 8.4 % (20.5-60.0); Mean Corpuscular HGB Conc 30.9 g/dL (29.9-35.2); Mean Corpuscular Hemoglobin 29.4 pg (25.9-34.0); Mean Corpuscular Volume 95.1 fL (80.0-94.0); Mean Platelet Volume 10.2 fL (9.5-13.5); Monocytes Absolute Auto 0.8 10^3/uL (0.3-0.8); Monocytes Percent Auto 7.8 % (1.7-12.0); Neutrophils Absolute Auto 8.5 10^3/uL (1.4-6.5); Neutrophils Percent Auto 82.7 % (43.0-75.0); Platelet Count 120 10^3/uL (150-450); Red Blood Count 3.64 10^6/uL (4.70-6.10); White Blood Count 10.3 10^3/uL (4.0-11.0)
[2023-05-22 04:30] LABS: Ammonia <10 umol/L (11-32)
[2023-05-22] MEDS: IPRATROPIUM BROMIDE 0.5 MG/2.5 ML VIAL.NEB IH ×2 (04:32→11:49)
[2023-05-22] MEDS: LEVALBUTEROL HCL 1.25 MG/3 ML VIAL NEB IH ×2 (04:32→11:49)
[2023-05-22 04:46] LABS: Alanine Aminotransferase 45 U/L (16-63); Albumin Globulin Ratio 0.8; Albumin Level 2.7 g/dL (3.4-5.0); Alkaline Phosphatase 75 U/L (46-116); Anion Gap -2.3; Aspartate Amino Transferase 16 U/L (15-37); BUN Creatinine Ratio 21.9; Bilirubin Total 0.4 mg/dL (0.2-1.0); Calcium 9.3 mg/dL (8.5-10.1); Carbon Dioxide 49.7 mmol/L (21.0-32.0); Chloride 87 mmol/L (98-107); Estimated GFR (African America >60 (>=60); Estimated GFR (Non-African Ame 56 (>=60); Globulin 3.2 g/dL; Glucose 120 mg/dL (74-106); Potassium 3.4 mmol/L (3.5-5.1); Sodium 131 mmol/L (136-145); Total Protein 5.9 g/dL (6.4-8.2)
[2023-05-22 04:48] LABS: PCO2 VBG 88.4 mmHg (40.0-52.0); pH VBG 7.409 (7.330-7.430)
[2023-05-22] MEDS: GABAPENTIN 100 MG CAPSULE 400 MG PO ×2 (06:46→15:37)
--- NOTE | 2023-05-22 08:48 | P.DS_ITS ---
DS: Providers Provider Date of admission: 05/20/23 17:27 Primary care physician: Non-Staff Physician, Consults: 05/21/23 10:32 Consult to Pulmonology Routine Consulting Provider: Carl Zhu Occupational Therapy Eval and Treat Routine Physical Therapy Eval and Treat Routine 05/21/23 10:33 Consult to Plsql Developer Routine 05/21/23 10:37 Consult to Wound Care Routine Consulting Provider: Miguel Mckeon DS: Diagnosis Discharge Diagnosis (1) Aspiration pneumonia: (2) Non-insulin dependent diabetes mellitus: Plan Sinus tachycardia, respiratory distress, mild hypotension, hyponatremia, altered mental status secondary to hypercapnic respiratory failure with acute hypoxia- PCO2 over 90.? With end-stage metastatic non-small cell lung cancer per family. Altered mental status persisting.? Patient with fluid on lungs, Acute hypoxic and hypercapnic respiratory failure- Severe uncontrolled diabetes mellitus Thrombocytopenia-monitor daily Hyponatremia- ?moderate protein calorie malnutrition-diet DS: Summary Hospital Course Hospital Course: Patient was seen and evaluated in the emergency room secondary to altered mental status. Found to have hypoxia with significant hypercapnia. Patient has been trying to be diuresed with fluid on the lung from pneumonitis from treatment for his lung cancer. Patient was transferred to the ICU secondary to being on BiPAP. The BiPAP was able to be weaned off the first night. With his elevated CO2 it was elected to try to maintain his saturations in the 88 to 92% range. He was able to be weaned down to 1 L of nasal cannula at the time of discharge. He was also diuresed with the Bumex drip. Tolerated that well. At the time of discharge his PCO2 is improved down to 60. pH still slightly alkalotic at 7.47. He was recommended to follow-up with his cancer doctor as well as referral to PCP. He needs better control of his diabetes. We will trying to maintain a low fluid status we will try him on Invokana and metformin. Occasional materials of provided. Medications see list. Follow-up with PCP and cardio and oncology Time Spent with Patient Time attestation: Total time spent providing and/or coordinating discharge services: Exam Constitutional Vital Signs, click to edit/add: Last Vital Signs Temp 98.2 F 05/22/23 08:00 Pulse 101 H 05/22/23 08:00 Resp 20 05/22/23 08:00 BP 109/78 05/22/23 08:00 Pulse Ox 98 05/22/23 08:00 O2 Del Method Nasal Cannula 05/22/23 08:00 O2 Flow Rate 1 05/22/23 08:00 FiO2 28 05/21/23 17:53 Documenting provider has reviewed patient's vital signs: yes Common normals: apparent distress Chest Common normals: inspection of chest normal Respiratory Common normals: abnormal respiratory effort and not clear to ascultation bilaterally Effort & inspection: non tachypneic and no respiratory distress Auscultation: rhonchi and diminished lung sounds Cardio Common normals: regular rhythm Rate: tachycardic DS: Data Data Completed and Pending Labs on day of discharge: Labs from last 24 hours 05/22/23 05/21/23 05/21/23 03:55 22:34 18:47 WBC 10.3 RBC 3.64 L Hgb 10.7 L Hct 34.6 L MCV 95.1 H MCH 29.4 MCHC 30.9 RDW 19.0 H Plt Count 120 L MPV 10.2 Neut % (Auto) 82.7 H Lymph % (Auto) 8.4 L [place] % (Auto) 7.8 Eos % (Auto) 0.0 L Baso % (Auto) 0.2 Neut # (Auto) 8.5 H Lymph # (Auto) 0.9 L [place] # (Auto) 0.8 Eos # (Auto) 0.0 Baso # (Auto) 0.0 Abs Immat Gran (auto) 0.09 H Imm/Tot Granulo (auto) 0.9 H Puncture Site ABG pH ABG pCO2 ABG pO2 ABG HCO3 ABG O2 Saturation ABG Base Excess [place] Test VBG pH 7.409 VBG pCO2 88.4 H* O2 Liters/Min Sodium 131 L Potassium 3.4 L Chloride 87 L Carbon Dioxide 49.7 H Anion Gap -2.3 BUN 28.0 H Creatinine 1.28 Est GFR ( Amer) >60 Est GFR (Non-Af Amer) 56 L BUN/Creatinine Ratio 21.9 Glucose 120 H Calcium 9.3 Total Bilirubin 0.4 AST 16 ALT 45 Alkaline Phosphatase 75 Ammonia <10 L NT-Pro-B Natriuret Pep 909.0 H Total Protein 5.9 L Albumin 2.7 L Globulin 3.2 Albumin/Globulin Ratio 0.8 Urine Color Urine Clarity Urine pH Ur Specific [place] Urine Protein Urine Glucose (UA) Urine Ketones Urine Occult Blood Urine Nitrite Urine Bilirubin Urine Urobilinogen Ur Leukocyte Esterase Urine RBC Urine WBC Ur Squamous Epith Cells Urine Crystals Urine Bacteria Urine Casts Urine Mucus Ur Culture Indicated? POC Glucose 262 H 184 H 05/21/23 05/21/23 05/21/23 17:15 16:30 16:18 WBC RBC Hgb Hct MCV MCH MCHC RDW Plt Count MPV Neut % (Auto) Lymph % (Auto) [place] % (Auto) Eos % (Auto) Baso % (Auto) Neut # (Auto) Lymph # (Auto) [place] # (Auto) Eos # (Auto) Baso # (Auto) Abs Immat Gran (auto) Imm/Tot Granulo (auto) Puncture Site ABG pH ABG pCO2 ABG pO2 ABG HCO3 ABG O2 Saturation ABG Base Excess [place] Test VBG pH VBG pCO2 O2 Liters/Min Sodium Potassium Chloride Carbon Dioxide Anion Gap BUN Creatinine Est GFR ( Amer) Est GFR (Non-Af Amer) BUN/Creatinine Ratio Glucose Calcium Total Bilirubin AST ALT Alkaline Phosphatase Ammonia NT-Pro-B Natriuret Pep Total Protein Albumin Globulin Albumin/Globulin Ratio Urine Color Lt. yellow Urine Clarity Clear Urine pH 6.0 Ur Specific [place] <=1.005 A Urine Protein Negative Urine Glucose (UA) Negative Urine Ketones Negative Urine Occult Blood Trace-i Urine Nitrite Negative Urine Bilirubin Negative Urine Urobilinogen 0.2 Ur Leukocyte Esterase Negative Urine RBC 0-2 Urine WBC None seen Ur Squamous Epith Cells Rare Urine Crystals None seen Urine Bacteria Trace A Urine Casts None seen Urine Mucus None seen Ur Culture Indicated? Already ordered POC Glucose 126 H 49 L* 05/21/23 05/21/23 05/21/23 11:55 11:15 10:48 WBC RBC Hgb Hct MCV MCH MCHC RDW Plt Count MPV Neut % (Auto) Lymph % (Auto) [place] % (Auto) Eos % (Auto) Baso % (Auto) Neut # (Auto) Lymph # (Auto) [place] # (Auto) Eos # (Auto) Baso # (Auto) Abs Immat Gran (auto) Imm/Tot Granulo (auto) Puncture Site Rr ABG pH 7.529 H* ABG pCO2 65.4 H* ABG pO2 60.5 L ABG HCO3 54.6 H ABG O2 Saturation 93.7 ABG Base Excess 31.9 H [place] Test Positive VBG pH VBG pCO2 O2 Liters/Min 1/4 l Sodium Potassium Chloride Carbon Dioxide Anion Gap BUN Creatinine Est GFR ( Amer) Est GFR (Non-Af Amer) BUN/Creatinine Ratio Glucose Calcium Total Bilirubin AST ALT Alkaline Phosphatase Ammonia 33 H NT-Pro-B Natriuret Pep Total Protein Albumin Globulin Albumin/Globulin Ratio Urine Color Urine Clarity Urine pH Ur Specific [place] Urine Protein Urine Glucose (UA) Urine Ketones Urine Occult Blood Urine Nitrite Urine Bilirubin Urine Urobilinogen Ur Leukocyte Esterase Urine RBC Urine WBC Ur Squamous Epith Cells Urine Crystals Urine Bacteria Urine Casts Urine Mucus Ur Culture Indicated? POC Glucose 205 H Discharge Plan Discharge Disposition: Home Health Service Discharge Medications: New metformin 500 mg Tablet 500 mg PO BIDWM Qty: 60 11RF levofloxacin 750 mg tablet 750 mg PO DAILY 7 Days Qty: 7 0RF (DME) blood-glucose meter [OneTouch Ultra2 Meter] Misc See Rx Instructions .Route Qty: 1 0RF Rx Instructions: use before breakfast and supper (DME) lancets [OneTouch UltraSoft 2 Lancet] 30 gauge misc See Rx Instructions .Route Qty: 100 11RF Rx Instructions: before breakfast and supper (DME) OneTouch Ultra Test Strip See Rx Instructions .Route Qty: 100 0RF Rx Instructions: before breakfast and lunch Jardiance 10 mg tablet 10 mg PO QAM Qty: 30 11RF Continued albuterol sulfate 2.5 mg /3 mL (0.083 %) solution for nebulization 2.5 mg inhalation Q6H Eliquis 5 mg tablet 5 mg PO Q12H diltiazem HCl 120 mg capsule,extended release 24hr 120 mg PO Q24H fluconazole 200 mg tablet 400 mg PO .every week Patient Comments: on gabapentin 100 mg capsule 400 mg PO Q8H levalbuterol HCl 1.25 mg/3 mL solution for nebulization 1.25 mg inhalation Q6H metoprolol succinate 50 mg tablet extended release 24 hr 25 mg PO Q12H omeprazole 40 mg capsule,delayed release(DR/EC) 40 mg PO QDAY ondansetron HCl 8 mg tablet 8 mg PO Q8H PRN (Reason: nausea and vomiting) prednisone 20 mg tablet 50 mg PO QDAY prochlorperazine maleate 10 mg tablet 10 mg PO Q6H PRN (Reason: nausea and vomiting) sulfamethoxazole-trimethoprim 800-160 mg tablet 1 tab PO .3 times per week Patient Comments: saturday, saturday, saturday furosemide [Lasix] 20 mg tablet 60 mg PO QDAY Rx Instructions: PER RETAIL FILL HX - LAST FILLED 05/10/23 #90 FOR A 30 DAY SUPPLY DIRECTIONS SPECIFIED - TAKE 3 TABS BY MOUTH EVERYDAY Activity: ambulate only with your walker Diet: diabetic diet Patient Instructions: Metformin (By mouth), Levofloxacin (By mouth), Canagliflozin (By mouth) (Invokana), Empagliflozin (By mouth) (Jardiance), Altered Mental Status (ED), Diabetic Hyperglycemia (DC), Hypoxemia (DC) Trombone Slide Assembler/Associate Civil Engineer Instructions: [facility] health, phone number is [phone], they should be calling within 48 hours to set up first visit. Forms: Portal Instructions Follow Up Appointments: SaturdayMay 29 at 1:[address] Hernandes Discharge Date/Time: 05/22/23 15:48
--- NOTE | 2023-05-22 09:24 | P.PLPN_ITS ---
Progress Note: A&P Assessment and Plan (1) Aspiration pneumonia: Plan 1.? Acute exacerbation of COPD.? Centrilobular emphysema secondary to tobacco abuse.? Continue current plan of care. 2.? Non-small cell lung cancer.? Strongly recommend patient F/U with [facility] oncology and pulmonology for further management. 3.? Loculated right effusion.? No plans for thoracentesis at this time by me. 4.? Chronic hypercapnic respiratory failure.? Appears compensated with pCO2 ~90.? Suspect right lung is non-functional at this point.? Needs F/U with [facility] pulmonology. 5.? Acute hypoxic respiratory failure.? Improved.? Continue to recommend target SpO2 88-92% to prevent hyperoxic-induced hypercapnia. 6.? Aspiration pneumonia.? Continue antibiotics. 7.? Toxic metabolic encephalopathy.? Overall appears improved ? sequelae of sepsis?? Unidentified brain mets (MRI was incomplete)? Terminal agitation?? Does not seem to be secondary to elevated CO2 as he still had confusion despite decrease in pCO2. 8.? History of tobacco abuse.? 50+ pack-year history, quit last year. Subjective Subjective Interval history: Spoke with RN. She believes patient is more awake and alert today. The patient voices no complaints of dyspnea, coughing, or wheezing. VBG done this morning shows pH @ 7.4 and pCO2 back to 90, which seems to be around baseline. No new significant issues overnight. Exam Constitutional Vital Signs, click to edit/add: Last Vital Signs Temp 98.2 F 05/22/23 08:00 Pulse 101 H 05/22/23 08:00 Resp 20 05/22/23 08:00 BP 109/78 05/22/23 08:00 Pulse Ox 98 05/22/23 08:00 O2 Del Method Nasal Cannula 05/22/23 08:00 O2 Flow Rate 1 05/22/23 08:00 FiO2 28 05/21/23 17:53 Common normals: no apparent distress HENMT Other: Wearing nasal cannula Respiratory Other: Faint RUL breath sounds, absent in the RLL. Left has clearing of crackles. Breathing is unlabored, does not appear to be in any distress. Cardio Rate: regular rate Rhythm: regular rhythm Extremity General: edema Neuro Motor exam: no tremor noted Psych Speech: normal speech
--- NOTE | 2023-05-22 09:27 | P.PODCN_ITS ---
[facility] - Podiatry Data of Consult Patient: new to practice Consult date: 05/22/23 Requesting physician: Darrell Stanley MD Primary care provider: Non-Staff Physician, MD Consult Narrative Reason for consult: b/l edema, L foot blister Narrative: Mr. Youngblood is a pleasant 68-year-old male presents to [facility] for fluid overload, COPD exacerbation, in the setting of recent lung cancer diagnosis 1 year ago. Responding well to diuresis thus far. Podiatry consulted for evaluation of bilateral lower extremity swelling as well as blister to top of left foot. Patient states this began about 1 week ago as the swelling got worse. He also reports noticing 2 blisters on the left leg that had opened up but have since healed. Denies any inciting injury denies any other acute pedal complaints at this time. Denies any constitutional symptoms upon today's visit. cc:: CC: Darrell Stanley MD Review of Systems ROS Narrative Bilateral leg swelling, left foot blister Status of ROS 10 or more systems reviewed and unremarkable except as noted in history and below [facility] Medical History (Updated 05/22/23 @ 12:15 by Carl Blue DPM) Surgical History (Updated 05/20/23 @ 18:55 by Naina Grigsby RN) Family History (Updated 05/20/23 @ 18:54 by Naina Grigsby RN) Mother Family history of CHF (congestive heart failure) Brother Family history of CHF (congestive heart failure) Family history of cancer Family history of diabetes mellitus Family history of myocardial infarction Family history of stroke Family history of hypertension Father Family history of cancer Social History (Updated 05/20/23 @ 18:55 by Naina Grigsby, RN) Within the past year, how often did you have a drink containing alcohol: never Score interpretation: A score less than 4 is consistent with normal alcohol consumption. Smoking status: Former smoker Non-prescribed substance use: denies use Highest level of school completed/degree received: high school graduate Gender Identity: male Exam Narrative Exam Narrative: Vascular: DP and PT pulses strongly palpable bilaterally. CFT is brisk to all digits. Skin temperature gradient warm to warm proximal to distal without any focal increase. No erythema or ecchymosis. No ascending lymphangitis. Hemosiderin staining bilateral lower extremities. 2+ pitting edema noted Neuro: Light touch and gross sensation intact bilaterally. Protective sensation diminished bilateral lower extremity. Derm: BLE skin taut shiny. No open lesions right lower extremity. Left lower extremity there is a deroofed bulla with intact underlying dermis, granular in nature with no signs of infection, mild serous exudate.. No fluctuance crepitus or bogginess. No probing or undermining. MSK: Muscle strength 5/5 for all 4 pedal muscle groups. Range of motion full without pain or crepitus bilaterally. Mild palpatory tenderness to the left dorsal foot bulla. No pain with calf or thigh compression bilaterally. Constitutional Vital Signs, click to edit/add: Last Vital Signs Temp 98.2 F 05/22/23 08:00 Pulse 101 H 05/22/23 08:00 Resp 20 05/22/23 08:00 BP 109/78 05/22/23 08:00 Pulse Ox 98 05/22/23 08:00 O2 Del Method Nasal Cannula 05/22/23 08:00 O2 Flow Rate 1 05/22/23 08:00 FiO2 28 05/21/23 17:53 Assessment and Plan Assessment and Plan (1) Lymphedema: (2) Non-insulin dependent diabetes mellitus: (3) Blister of left foot without infection: Plan Patient examined and evaluated and all findings discussed with the patient. All questions answered to patient's satisfaction. Labs reviewed. This patient is suffering from increased swelling in bilateral lower extremities likely result from fluid retention secondary to his COPD exacerbation. Has been responding well to diuresis thus far. Continue with Tubigrip compression bilaterally to assist with lymphedema. Left dorsal foot bulla presents as partial-thickness ulceration which is stable and noninfected. The dermis is intact. Dressed with Xeroform 4 x 4's loose Irma and Tubigrip. Change daily. No signs of infection to bilateral lower extremities at this time. Patient to follow-up in wound center 1 week from discharge for continued local wound care, lymphedema clinic evaluation.
[2023-05-22] MEDS: APIXABAN 5 MG TABLET PO (09:36)
[2023-05-22] MEDS: FERROUS SULFATE 325 MG TABLET PO (09:36)
[2023-05-22] MEDS: METOPROLOL SUCCINATE 50 MG TAB.ER.24H 25 MG PO (09:36)
[2023-05-22] MEDS: PROSTAT 15 GM PROTEIN/100 CAL 30 ML LIQUID PACKET FEED TUBE (09:36)
[2023-05-22] MEDS: PREDNISONE 20 MG TABLET 50 MG PO (09:37)
[2023-05-22] MEDS: L. ACIDOPHILUS/L.BULGARICUS 1 PACKET GRAN.PACK PO (09:37)
[2023-05-22] MEDS: DILTIAZEM HCL 120 MG CAP.ER.24H PO (09:37)
[2023-05-22] MEDS: FUROSEMIDE 40 MG/4 ML VIAL IVP (09:38)
[2023-05-22] MEDS: METFORMIN HCL 500 MG TABLET PO (09:38)
--- NOTE | 2023-05-22 09:56 | CM.NOTE ---
Rounds made with Dr. Stanley. Dr. Stanley discussed the addition of new medication-Metformin and Invokana with and Mr. Youngblood. Will need to follow up (and obtain)a Family physician(suggested Dr. Hernandes)- and Mr. Youngblood understand. Keep appointment with Oncology on May 24, 2023. Mr. Youngblood and verbalize understanding.
[2023-05-22] MEDS: SULFAMETHOXAZOLE/TRIMETHOPRIM 800-160 MG TABLET 1 TAB PO (10:35)
--- NOTE | 2023-05-22 10:41 | SWNOTE1 ---
SW met with pt, pt's , and pt's daughter as well. Pt lives at home with and they have a bed, wheelchair, ramp, and oxygen at home. The one thing family inquired about was getting pt a bipap/cpap at home. SW explained that this is done outpt and they would have to see his PCP in order to get that testing ordered. Other daughter came in room as well. She did ask if there was any way around it, she voiced if he went home, he would likely be right back without having a pap machine. SW and nursing let them know it is something that has to be done out-patient. At this time family voiced no other needs. SW to follow as needed.
[2023-05-22] MEDS: INSULIN ASPART 300 UNIT/3 ML PEN SUBQ (11:46)
[2023-05-22] MEDS: CANAGLIFLOZIN 100 MG TABLET PO (11:47)
--- NOTE | 2023-05-22 12:00 | SWNOTE1 ---
SW and case management reviewed the therapy notes and OT recommended home health. SW took in a list from medicare.gov with star ratings on it. Family is going to review and SW to check back in.
[2023-05-22 12:03] LABS: Glucometer 361 mg/dL (74-106)
[2023-05-22 12:30] LABS: ABG PCO2 66.7 mmHg (35.0-45.0); PO2 ABG 61.9 mmHg (80.0-100.0); pH ABG 7.483 (7.350-7.450)
[2023-05-22 12:31] LABS: Allen Test POSITIVE (POSITIVE); Base Excess ABG 26.5 mmol/L (-2.0-2.0); Liters per Minute 1; O2 Mode NASAL CANNULA; Oxygen Saturation ABG 93.4 %; Puncture Site R RADIAL
--- NOTE | 2023-05-22 12:39 | SWNOTE1 ---
Pt's family has decided on [facility]. JARROD did let them know the only issue may be that he is not established with PCP. Nursing is setting him up with Dr. Hernandes and he potentially has apt on Saturday. JARROD called [facility] and they stated it should not be an issue as long as Dr. Hernandes agrees to follow. JARROD gave [facility] phone number for Dr. Hernandes office. JARROD sent referral.
--- NOTE | 2023-05-22 13:57 | SWNOTE1 ---
[facility] received referral and they are still reviewing.
--- NOTE | 2023-05-22 15:25 | SWNOTE1 ---
[facility] is all set for home health. SW was asked to talk with family in regards to IMM form as well, Nicole director of floor and ICU in room as well. JARROD reviewed Important Message from Medicare form that was signed on 05/21/23 by . SW let family know if they would like to appeal discharge that they would have to do before patient leaves hospital. SW also let them know if medicare does agree with discharge, family is responsible for any extra days stayed. SW let them know if medicare agrees then they will pay. At this time family does not want to appeal. SW let family know HH would be calling within 48 hours.
--- NOTE | 2023-05-23 13:50 | CM.DCFOLLOWU ---
Person spoke with: How are you feeling? pt doing much better How is your pain? No pain Did you understand your discharge instructions? yes Do you have any questions about your discharge instructions? No Were you given any prescriptions at discharge? yes Were you able to get your prescriptions filled? yes Do you understand how to take your medications as ordered? yes Do you have any questions about your follow up appointment and do you plan to keep your follow up appointment? no it is scheduled for SatMay 29 Is there anything else that you would like to discuss? Asked about drsg supplies that were left here. Will check on this for pt and call them back Questions/Comments/Concerns/Other:
== END 2023-05-22 15:48 | disposition home health service (06) | DRG 190 ==
LOC: ER 17:36 → ICU 18:24
PROVIDERS: Physician Assistant; Admitting Provider Family Medicine; Emergency Provider Emergency Medicine; Visit Provider Family Medicine
DX: J43.2 Centrilobular emphysema (principal); G92.8 Other toxic encephalopathy; J69.0 Pneumonitis due to inhalation of food and vomit; J96.01 Acute respiratory failure with hypoxia; J96.22 Acute and chronic respiratory failure with hypercapnia; C34.31 Malignant neoplasm of lower lobe, right bronchus or lung; E87.1 Hypo-osmolality and hyponatremia; E44.0 Moderate protein-calorie malnutrition; J90 Pleural effusion, not elsewhere classified; E11.65 Type 2 diabetes mellitus with hyperglycemia; D69.6 Thrombocytopenia, unspecified; I89.0 Lymphedema, not elsewhere classified; R41.82 Altered mental status, unspecified; S90.822A Blister (nonthermal), left foot, initial encounter; Z68.34 Body mass index [BMI] 34.0-34.9, adult; Z99.81 Dependence on supplemental oxygen; Z87.891 Personal history of nicotine dependence; Z92.21 Personal history of antineoplastic chemotherapy; Z79.01 Long term (current) use of anticoagulants; Z79.899 Other long term (current) drug therapy; Z79.52 Long term (current) use of systemic steroids; Z91.030 Bee allergy status; Z82.49 Family history of ischemic heart disease and other diseases of the circulatory system; Z82.3 Family history of stroke; Z83.3 Family history of diabetes mellitus; Z80.9 Family history of malignant neoplasm, unspecified; X58.XXXA Exposure to other specified factors, initial encounter
CPT/HCPCS: 36415; 36600; 70450; 70551; 71045; 71275; 80053; 81001; 81003; 82140; 82800; 82805; 82948; 83880; 84484; 85025; 85610; 85730; 87070; 87086; 93005; 94640; 94660; 94667; 94668; 94761; 96361; 96365; 96366; 96367; 96375; 96376; 97162; 97165; 99291; 99292; G0108; Q9967

== ENCOUNTER 2023-06-03 08:50 | Outpatient (OUT) | payer MEDICARE, OTHER, SELFPAY | END 2023-06-03 08:51 | disposition home or self-care (01) | LOC: WC 08:50 | PROVIDERS: Visit Provider Physician Assistant | DX: I87.332 Chronic venous hypertension (idiopathic) with ulcer and inflammation of left lower extremity (principal); L97.421 Non-pressure chronic ulcer of left heel and midfoot limited to breakdown of skin; R60.9 Edema, unspecified | CPT/HCPCS: G0463 ==

== ENCOUNTER 2024-06-05 14:49 | Inpatient (IN) | payer MEDICARE, OTHER, SELFPAY ==
[2024-06-05] VITALS (32 sets, daily range): BP systolic 103–128; BP diastolic 64–80; PULSE 85–119; TEMP 36.4–36.8; O2SAT 91–100; BMI 38.0; BMI 38.1
--- NOTE | 2024-06-05 15:00 | ECG_ITS ---
The [facility] Test Date: 2024-06-05 Pat Name: BLANCA ADAMSON Department: Room: - Gender: Male Support Architect: : 1955 Requested By: Order Number: [id number] Reading MD: ERIC TAVAREZ Measurements Intervals [place] Rate: 90 P: -1 AL: 216 QRS: 34 QRSD: 96 T: 49 QT: 352 QTc: 400 Interpretive Statements 1100 Sinus rhythm 1570 with occasional ventricular premature complexes 2231 First degree AV block 8101 Low QRS voltage in limb leads 9150 abnormal ECG Compared to ECG 05/20/2023 14:40:48 Ventricular premature complex(es) now present First degree AV block now present Low QRS voltage now present Electronically Signed On 06-05-2024 18:35:46 EDT by ERIC TAVAREZ
--- NOTE | 2024-06-05 15:00 | XR_ITS ---
The [address] [address] Patient Name: BLANCA ADAMSON MRN: [id number] date: 1955 Sex: M Assigned Patient Location: ER Current Patient Location: ED.MAIN Accession/Order Number: [id number] Exam Date: 06/05/2024 15:05 Report Date: 06/05/2024 15:31 At the request of: DELICIA DIXON Procedure: XR chest 1V EXAMINATION: XR chest 1V HISTORY: Chest pain COMPARISON: XR chest 05/21/2023, CTA chest 05/20/2023 FINDINGS: LUNGS: Complete opacification of the right hemithorax. Left lung is well expanded and clear. VASCULATURE: No increased pulmonary vasculature. PLEURA: Suspect large right pleural effusion. CARDIAC: No cardiomegaly or cardiac silhouette abnormality. MEDIASTINUM: No visible mass or adenopathy. BONES: No fracture or visible bone lesion. OTHER: Negative. XR/XR chest 1V IMPRESSION: 1. Complete opacification the right hemithorax; a large pleural effusion and collapse of right lung is suspected. Electronically authenticated by: RICHARD TALBERT Date: 06/05/2024 15:31
--- NOTE | 2024-06-05 15:00 | CT_ITS ---
The [address] [address] Patient Name: BLANCA ADAMSON MRN: [id number] date: 1955 Sex: M Assigned Patient Location: ER Current Patient Location: ER Accession/Order Number: [id number] Exam Date: 06/05/2024 16:05 Report Date: 06/05/2024 17:17 At the request of: DELICIA LONG Procedure: CT angio chest EXAM: CT angio chest HISTORY: Chest pain . History of lung cancer. COMPARISON: Chest x-ray 06/05/2024. CT scans 05/20/2023 and earlier. TECHNIQUE: CTA chest PE study. Axial scans with reformatted coronal and sagittal images and MIP images. Individualized dose reduction used for this exam. contrast: 97 mL Omnipaque 350 FINDINGS: Pulmonary arteries: Occlusive thrombus seen within the distal right lower lobar pulmonary artery branch adjacent to an area of atelectatic lung and pleural effusion. This is new. Small clot burden. Normal enhancement of the pulmonary artery tract which is prominent, left main pulmonary artery left pulmonary artery branches. Right upper lobe branches appear compressed by lung tissue but are probably patent. Pulmonary outflow tract enlargement suggests pulmonary artery hypertension. Lungs/pleura: Right chest opacified as seen on chest x-ray consistent with atelectatic lung and large pleural effusion. There is debris which appears to obstruct the right lower lobe bronchus in the upper lobe bronchus appears compressed and obstructed. Left bronchi are patent. Small density left lung base lower lobe posteriorly approximately 4 mm new from previous. Reference axial series 5 image 63. Minor linear scarring left base. No left pleural effusion. Mediastinum: Mildly prominent right-sided lymph nodes increased from previous. Abundant mediastinal fat. No left-sided mediastinal or left hilar adenopathy. Gas in the upper and mid esophagus. Cardiac/vascular: Normal enhancement of aorta. Dilated pulmonary outflow tract suggesting increased pulmonary artery pressure. Cardiac silhouette prominent stable. No pericardial effusion. No right ventricular strain. Bowel caliber right subclavian vein. No lower neck or axillary mass or adenopathy. No suspicious bone lesion. No acute or new abnormality upper abdomen. CT/CT angio chest IMPRESSION: Nonocclusive thrombus proximal right lower lobe pulmonary artery branch new from previous. Question whether this is tumor thrombus, history of right lung cancer. The more distal right arterial branches appear compressed probably patent but difficult to evaluate due to surrounding lung abnormality. Prominent pulmonary outflow tract. No evidence of right ventricular strain. Complete atelectasis right lung with surrounding pleural effusion. Lung opacification increased from previous. Mildly prominent mediastinal lymph nodes increased from previous. Question metastatic versus reactive. Small nodular density left lung base lower lobe new from previous. Results called to Dr. Power Long in the emergency room at 5:14 PM Eastern standard time on 06/05/2024 Electronically authenticated by: ABIMAEL MATAMOROS Date: 06/05/2024 17:17
[2024-06-05 15:19] LABS: Hematocrit 41.4 % (42.0-54.0); Mean Corpuscular HGB Conc 31.4 g/dL (29.9-35.2); Mean Corpuscular Hemoglobin 32.3 pg (25.9-34.0); Mean Corpuscular Volume 102.7 fL (80.0-94.0); Mean Platelet Volume 9.3 fL (9.5-13.5); Platelet Count 217 10^3/uL (150-450); Red Blood Count 4.03 10^6/uL (4.70-6.10); Red Cell Distribution Width 15.8 % (11.0-15.0)
[2024-06-05 15:49] LABS: Alanine Aminotransferase 43 U/L (16-63); Albumin Globulin Ratio 0.9; Albumin Level 3.1 g/dL (3.4-5.0); Alkaline Phosphatase 67 U/L (46-116); Anion Gap 8.9; Aspartate Amino Transferase 16 U/L (15-37); BUN Creatinine Ratio 20.5; Bilirubin Total 0.3 mg/dL (0.2-1.0); Calcium 9.2 mg/dL (8.5-10.1); Carbon Dioxide 38.8 mmol/L (21.0-32.0); Chloride 89 mmol/L (98-107); Estimated GFR (African America >60 (>=60); Estimated GFR (Non-African Ame 56 (>=60); Globulin 3.6 g/dL; Glucose 183 mg/dL (74-106); Potassium 5.7 mmol/L (3.5-5.1); Sodium 131 mmol/L (136-145); Total Protein 6.7 g/dL (6.4-8.2); Troponin I High Sensitivity 10.4 pg/mL (4.0-76.1)
[2024-06-05 16:01] LABS: INR 0.95; Prothrombin Time 10.1 sec (9.0-11.6)
[2024-06-05 16:15] LABS: Lymphocytes Absolute Manual 1.26 10^3/uL (1.20-3.80); Segmented Neut Absolute Manual 7.74 10^3/uL (1.4-6.5)
--- NOTE | 2024-06-05 17:38 | ED_ITS ---
HPI - Chest Pain General Chief Complaint: Chest Pain Stated Complaint: GENERAL WEAKNESS Time Seen by Provider: 06/05/24 14:51 Source: patient Mode of arrival: ambulance History of Present Illness HPI narrative: This 69-year-old male arrived by paramedics from his home in [facility]. He was at home at rest when he had a sudden onset of a severe tightness and constriction in his chest. He said it lasted about 3 seconds but it knocked me to my knees. He has never had any pain like this before. He immediately called for paramedics. Patient is well-known to myself from previous interactions with him. He was seen shortly after. His symptoms are actually gone. He has not had previous myocardial infarction but he has well-documented lung CA and ongoing complications from therapeutic interventions. He is on a number of medications which were reviewed. He says he has had DVT in his leg but he has never had pulmonary embolism before. He has had CTs at this hospital and at his cancer center but no history of pulmonary embolism previously. He had stat EKG done on arrival here showed sinus rhythm rate 90 but no malignant arrhythmia no ST segment elevation. Again he was pretty much asymptomatic. He is oxygen dependent and has known history of total collapse of his right lung. He does not have any tearing or ripping sensation going into his back no pain or discomfort in his head or neck. Related Data Home Medications ?Medication ?Instructions ?Recorded ?Confirmed albuterol sulfate 2.5 mg/3 mL 2.5 mg inhalation Q6H 05/20/23 06/05/24 (0.083 %) solution for nebulization apixaban 5 mg tablet (Eliquis) 5 mg PO Q12H 05/20/23 06/05/24 diltiazem HCl 120 mg 120 mg PO Q24H 05/20/23 06/05/24 capsule,extended release 24 hr fluconazole 200 mg tablet 400 mg PO .every week 05/20/23 06/05/24 furosemide 20 mg tablet (Lasix) 60 mg PO QDAY 05/20/23 06/05/24 gabapentin 100 mg capsule 400 mg PO Q8H 05/20/23 06/05/24 levalbuterol HCl 1.25 mg/3 mL 1.25 mg inhalation Q6H 05/20/23 06/05/24 solution for nebulization metoprolol succinate 50 mg 25 mg PO Q12H 05/20/23 06/05/24 tablet,extended release 24 hr omeprazole 40 mg capsule,delayed 40 mg PO QDAY 05/20/23 06/05/24 release ondansetron HCl 8 mg tablet 8 mg PO Q8H PRN nausea and vomiting 05/20/23 06/05/24 prednisone 20 mg tablet 50 mg PO QDAY 05/20/23 06/05/24 prochlorperazine maleate 10 mg 10 mg PO Q6H PRN nausea and 05/20/23 06/05/24 tablet vomiting sulfamethoxazole 800 1 tab PO .3 times per week 05/20/23 06/05/24 mg-trimethoprim 160 mg tablet fluticasone fur. 200 mcg-umeclid 1 inh inhalation DAILY 06/05/24 06/05/24 62.5 mcg-vilant 25 mcg inhalat.powder (Trelegy Ellipta) sennosides 8.6 mg tablet (Senna 8.6 mg PO DAILY PRN constipation 06/05/24 06/05/24 Lax) Previous Rx's ?Medication ?Instructions ?Recorded blood sugar diagnostic (OneTouch #100 ea 05/22/23 Ultra Test strips) blood-glucose meter (OneTouch #1 ea 05/22/23 Ultra2 Meter) empagliflozin 10 mg tablet 10 mg PO QAM #30 tabs 05/22/23 (Jardiance) lancets 30 gauge (OneTouch #100 ea 05/22/23 UltraSoft 2 Lancet) metformin 500 mg tablet 500 mg PO BIDWM #60 tabs 05/22/23 Allergies Allergy/AdvReac Type Severity Reaction Status Date / Time bee venom protein (honey bee) Allergy Severe Verified 05/20/23 14:41 [facility] Medical History (Updated 06/05/24 @ 17:42 by Van Long MD) Hypothyroidism ?E03.9 - Hypothyroidism, unspecified (ICD-10) Anemia ?D64.9 - Anemia, unspecified (ICD-10) COPD (chronic obstructive pulmonary disease) ?J44.9 - Chronic obstructive pulmonary disease, unspecified (ICD-10) AAA (abdominal aortic aneurysm) without rupture ?I71.40 - Abdominal aortic aneurysm, without rupture, unspecified (ICD-10) Lung cancer ?C34.90 - Malignant neoplasm of unspecified part of unspecified bronchus or lung (ICD-10) Atrial fibrillation with rapid ventricular response ?I48.91 - Unspecified atrial fibrillation (ICD-10) History of DVT (deep vein thrombosis) ?Z86.718 - Personal history of other venous thrombosis and embolism (ICD-10) Aspiration pneumonia ?J69.0 - Pneumonitis due to inhalation of food and vomit (ICD-10) Surgical History (Updated 05/20/23 @ 18:55 by Naina Grigsby RN) Hx of tonsillectomy ?Z90.89 - Acquired absence of other organs (ICD-10) History of lung biopsy ?Z98.890 - Other specified postprocedural states (ICD-10) Family History (Updated 05/20/23 @ 18:54 by Naina Grigsby RN) Mother Family history of CHF (congestive heart failure) Brother Family history of CHF (congestive heart failure) Family history of cancer Family history of diabetes mellitus Family history of myocardial infarction Family history of stroke Family history of hypertension Father Family history of cancer Social History (Updated 05/20/23 @ 18:55 by Naina Grigsby RN) Within the past year, how often did you have a drink containing alcohol: never Score interpretation: A score less than 4 is consistent with normal alcohol consumption. Smoking status: Former smoker Non-prescribed substance use: denies use Highest level of school completed/degree received: high school graduate Gender Identity: male Exam Narrative Exam Narrative: Patient well-known to myself well-hydrated vital signs are noted. Blood pressure normal respiratory rate 24-26 he is oxygen dependent at home 13/05 he is on 2 L with good oxygen saturation of 95%. His skin is warm and dry his mucous membranes are moist and pink. He has steroid facies wound chronic prednisone therapy. Airway is normal there is no stridor or drooling. Deglutition swallowing and phonation are normal. His lungs have decreased breath sounds on the right side no wheeze rales or rhonchi noted on the left. Heart sounds are normal with no S3 or murmur. Abdominal area is swollen but has no peritoneal findings. No guarding rebound or rigidity. No pulsatile masses. Both of his extremities have 2-3+ edema which she says is normal for him. He does have a stocking and has chronic wound on I believe his left leg. Pulses of the extremities are good. Neurological examination shows normal mental status and normal cognition. Constitutional Vital Signs, click to edit/add: Last Vital Signs Temp 97.9 F 06/05/24 14:50 Pulse 88 06/05/24 16:50 Resp 26 H 06/05/24 16:50 BP 109/71 06/05/24 16:30 Pulse Ox 95 06/05/24 16:50 O2 Del Method Nasal Cannula 06/05/24 15:15 O2 Flow Rate 2 06/05/24 15:15 Course Vital Signs Vital signs: Vital Signs Temperature 97.9 F 06/05/24 14:50 Pulse Rate 90 06/05/24 14:50 Respiratory Rate 18 06/05/24 14:50 Blood Pressure 117/80 06/05/24 14:50 Pulse Oximetry 98 06/05/24 14:50 Oxygen Delivery Method Room Air 06/05/24 14:50 Temperature 97.9 F 06/05/24 14:50 Pulse Rate 88 06/05/24 16:50 Respiratory Rate 26 H 06/05/24 16:50 Blood Pressure 109/71 06/05/24 16:30 Pulse Oximetry 95 06/05/24 16:50 Oxygen Delivery Method Nasal Cannula 06/05/24 15:15 Oxygen Delivery Flow Rate 2 06/05/24 15:15 MDM - Chest Pain MDM Narrative Medical decision making narrative: Because of his history of malignancy, and despite that the fact he is on Eliquis I will get a CTA to rule out pulmonary embolism as I really have no other accounting for the symptoms. His blood work shows normal troponin. His potassium is modestly elevated at 5.7 and his BUN and creatinine are stable. His CO2 is improved from previous studies. Hemoglobin is also stable. The CTA does show a nonocclusive thrombus in a vessel in the right lower lung. The radiologist indicates that this is a new finding when compared to some of his previous studies here. Radiologist indicates that his RV function is normal. I have discussed this with the on-call hospitalist and he will want to admit the patient. We will start him on heparin here in the ER. Lab Data Labs: Lab Results 06/05/24 Range/Units 14:57 WBC 9.0 (4.0-11.0) 10^3/uL RBC 4.03 L (4.70-6.10) 10^6/uL Hgb 13.0 L (14.0-18.0) g/dL Hct 41.4 L (42.0-54.0) % MCV 102.7 H (80.0-94.0) fL MCH 32.3 (25.9-34.0) pg MCHC 31.4 (29.9-35.2) g/dL RDW 15.8 H (11.0-15.0) % Plt Count 217 (150-450) 10^3/uL MPV 9.3 L (9.5-13.5) fL Seg Neuts % (Manual) 86.0 H (43.0-75.0) Lymphocytes % (Manual) 14.0 L (20.5-60.0) % Monocytes % (Manual) 0.0 L (1.7-12.0) % Eosinophils % (Manual) 0.0 L (0.9-7.0) % Basophils % (Manual) 0.0 L (0.2-2.0) % Neutrophils # (Manual) 7.74 H (1.4-6.5) 10^3/uL Lymphocytes # (Manual) 1.26 (1.20-3.80) 10^3/uL Monocytes # (Manual) 0.00 L (0.30-0.80) 10^3/uL Eosinophils # (Manual) 0.00 (0.00-0.70) 10^3/uL Basophils # (Manual) 0.00 (0.00-0.10) 10^3/uL Sodium 131 L (136-145) mmol/L Potassium 5.7 H (3.5-5.1) mmol/L Chloride 89 L (98-107) mmol/L Carbon Dioxide 38.8 H (21.0-32.0) mmol/L Anion Gap 8.9 BUN 26.0 H (7.0-18.0) mg/dL Creatinine 1.27 (0.70-1.30) mg/dL Est GFR ( Amer) >60 (>=60) Est GFR (Non-Af Amer) 56 L (>=60) BUN/Creatinine Ratio 20.5 Glucose 183 H (74-106) mg/dL Calcium 9.2 (8.5-10.1) mg/dL Total Bilirubin 0.3 (0.2-1.0) mg/dL AST 16 (15-37) U/L ALT 43 (16-63) U/L Alkaline Phosphatase 67 (46-116) U/L Troponin I High Sens 10.4 (4.0-76.1) pg/mL NT-Pro-B Natriuret Pep 403.0 (<=900.0) pg/mL Total Protein 6.7 (6.4-8.2) g/dL Albumin 3.1 L (3.4-5.0) g/dL Globulin 3.6 g/dL Albumin/Globulin Ratio 0.9 Discharge Plan Discharge Chief Complaint: Chest Pain Clinical Impression: Pulmonary embolism Patient Disposition: Admitted As Inpatient Time of Disposition Decision: 17:42 Prescriptions / Home Meds: No Action albuterol sulfate 2.5 mg /3 mL (0.083 %) solution for nebulization 2.5 mg inhalation Q6H Eliquis 5 mg tablet 5 mg PO Q12H diltiazem HCl 120 mg capsule,extended release 24hr 120 mg PO Q24H fluconazole 200 mg tablet 400 mg PO .every week Patient Comments: on gabapentin 100 mg capsule 400 mg PO Q8H levalbuterol HCl 1.25 mg/3 mL solution for nebulization 1.25 mg inhalation Q6H metoprolol succinate 50 mg tablet extended release 24 hr 25 mg PO Q12H omeprazole 40 mg capsule,delayed release(DR/EC) 40 mg PO QDAY ondansetron HCl 8 mg tablet 8 mg PO Q8H PRN (Reason: nausea and vomiting) prednisone 20 mg tablet 50 mg PO QDAY prochlorperazine maleate 10 mg tablet 10 mg PO Q6H PRN (Reason: nausea and vomiting) sulfamethoxazole-trimethoprim 800-160 mg tablet 1 tab PO .3 times per week Patient Comments: saturday, saturday, saturday furosemide [Lasix] 20 mg tablet 60 mg PO QDAY Rx Instructions: PER RETAIL FILL HX - LAST FILLED 05/10/23 #90 FOR A 30 DAY SUPPLY DIRECTIONS SPECIFIED - TAKE 3 TABS BY MOUTH EVERYDAY metformin 500 mg Tablet 500 mg PO BIDWM Qty: 60 11RF (DME) blood-glucose meter [OneTouch Ultra2 Meter] Misc See Rx Instructions .Route Qty: 1 0RF Rx Instructions: use before breakfast and supper (DME) lancets [OneTouch UltraSoft 2 Lancet] 30 gauge misc See Rx Instructions .Route Qty: 100 11RF Rx Instructions: before breakfast and supper (DME) OneTouch Ultra Test Strip See Rx Instructions .Route Qty: 100 0RF Rx Instructions: before breakfast and lunch Jardiance 10 mg tablet 10 mg PO QAM Qty: 30 11RF sennosides [Senna Lax] 8.6 mg tablet 8.6 mg PO DAILY PRN (Reason: constipation) Trelegy Ellipta 200-62.5-25 mcg blister with device 1 inh inhalation DAILY Print Language: Citizen [place] Referrals: Physician,Non-Staff, MD [Primary Care Provider] - 1 week
[2024-06-05] MEDS: HEPARIN SODIUM 25,000 UNIT/500 ML D5W IV.SOLN 30 UNIT IV (17:48)
[2024-06-05] MEDS: HEPARIN SODIUM (PORCINE) 5,000 UNIT/ML VIAL 7900 UNIT IV (17:48)
--- NOTE | 2024-06-05 17:51 | P.HP_ITS ---
HPI H&P: HPI History of Present Illness Chief complaint: GENERAL WEAKNESS Narrative: Patient presented to the emergency with acute onset of sharp type pleuritic in nature chest pain. In ER found to have pulmonary embolism. This is despite being on Eliquis for atrial fibrillation. He has been taking his 5 mg of Eliquis twice a day, he did miss a few doses a few weeks ago. Nothing recently though. Will consider this in Eliquis failure. Patient admitted for IV heparin and transition to Coumadin. I saw patient in the emergency room, patient is resting comfortably in bed. Denies shortness of breath at rest. He has some baseline shortness of breath due to his COPD. Sputum production. Worse over the last day or 2. Opioid HPI Opioid Management Most Recent Pain and Opioid Data: No Data to Display Review of Systems ROS Status of ROS 10 or more systems reviewed and unremark able except as noted in history and below [facility] Medical History (Updated 06/05/24 @ 18:08 by Darrell Stanley MD) Hypothyroidism ?E03.9 - Hypothyroidism, unspecified (ICD-10) Anemia ?D64.9 - Anemia, unspecified (ICD-10) COPD (chronic obstructive pulmonary disease) ?J44.9 - Chronic obstructive pulmonary disease, unspecified (ICD-10) AAA (abdominal aortic aneurysm) without rupture ?I71.40 - Abdominal aortic aneurysm, without rupture, unspecified (ICD-10) Lung cancer ?C34.90 - Malignant neoplasm of unspecified part of unspecified bronchus or lung (ICD-10) Atrial fibrillation with rapid ventricular response ?I48.91 - Unspecified atrial fibrillation (ICD-10) History of DVT (deep vein thrombosis) ?Z86.718 - Personal history of other venous thrombosis and embolism (ICD-10) Aspiration pneumonia ?J69.0 - Pneumonitis due to inhalation of food and vomit (ICD-10) Surgical History (Updated 05/20/23 @ 18:55 by Naina Grigsby RN) Hx of tonsillectomy ?Z90.89 - Acquired absence of other organs (ICD-10) History of lung biopsy ?Z98.890 - Other specified postprocedural states (ICD-10) Family History (Updated 05/20/23 @ 18:54 by Naina Grigsby RN) Mother Family history of CHF (congestive heart failure) Brother Family history of CHF (congestive heart failure) Family history of cancer Family history of diabetes mellitus Family history of myocardial infarction Family history of stroke Family history of hypertension Father Family history of cancer Social History (Updated 05/20/23 @ 18:55 by Naina Grigsby RN) Within the past year, how often did you have a drink containing alcohol: never Score interpretation: A score less than 4 is consistent with normal alcohol consumption. Smoking status: Former smoker Non-prescribed substance use: denies use Highest level of school completed/degree received: high school graduate Gender Identity: male Meds Home Medications and Allergies Home Medications ?Medication ?Instructions ?Recorded ?Confirmed ?Type albuterol sulfate 2.5 mg/3 mL 2.5 mg inhalation Q6H 05/20/23 06/05/24 History (0.083 %) solution for nebulization apixaban 5 mg tablet (Eliquis) 5 mg PO Q12H 05/20/23 06/05/24 History diltiazem HCl 120 mg 120 mg PO Q24H 05/20/23 06/05/24 History capsule,extended release 24 hr fluconazole 200 mg tablet 400 mg PO .every week 05/20/23 06/05/24 History furosemide 20 mg tablet (Lasix) 60 mg PO QDAY 05/20/23 06/05/24 History gabapentin 100 mg capsule 400 mg PO Q8H 05/20/23 06/05/24 History levalbuterol HCl 1.25 mg/3 mL 1.25 mg inhalation Q6H 05/20/23 06/05/24 History solution for nebulization metoprolol succinate 50 mg 25 mg PO Q12H 05/20/23 06/05/24 History tablet,extended release 24 hr omeprazole 40 mg capsule,delayed 40 mg PO QDAY 05/20/23 06/05/24 History release ondansetron HCl 8 mg tablet 8 mg PO Q8H PRN nausea and vomiting 05/20/23 06/05/24 History prednisone 20 mg tablet 50 mg PO QDAY 05/20/23 06/05/24 History prochlorperazine maleate 10 mg 10 mg PO Q6H PRN nausea and 05/20/23 06/05/24 History tablet vomiting sulfamethoxazole 800 1 tab PO .3 times per week 05/20/23 06/05/24 History mg-trimethoprim 160 mg tablet blood sugar diagnostic (OneTouch #100 ea 05/22/23 Rx Ultra Test strips) blood-glucose meter (OneTouch #1 ea 05/22/23 Rx Ultra2 Meter) empagliflozin 10 mg tablet 10 mg PO QAM #30 tabs 05/22/23 06/05/24 Rx (Jardiance) lancets 30 gauge (OneTouch #100 ea 05/22/23 Rx UltraSoft 2 Lancet) metformin 500 mg tablet 500 mg PO BIDWM #60 tabs 05/22/23 06/05/24 Rx fluticasone fur. 200 mcg-umeclid 1 inh inhalation DAILY 06/05/24 06/05/24 Histor y 62.5 mcg-vilant 25 mcg inhalat.powder (Trelegy Ellipta) sennosides 8.6 mg tablet (Senna 8.6 mg PO DAILY PRN constipation 06/05/24 06/05/24 History Lax) Allergies Allergy/AdvReac Type Severity Reaction Status Date / Time bee venom protein (honey bee) Allergy Severe Verified 05/20/23 14:41 Exam Constitutional Vital Signs, click to edit/add: Last Vital Signs Temp 97.9 F 06/05/24 14:50 Pulse 88 06/05/24 16:50 Resp 26 H 06/05/24 16:50 BP 109/71 06/05/24 16:30 Pulse Ox 95 06/05/24 16:50 O2 Del Method Nasal Cannula 06/05/24 15:15 O2 Flow Rate 2 06/05/24 15:15 Documenting provider has reviewed patient's vital signs: yes Common normals: no apparent distress [facility] Common normals: normocephalic and head/scalp atraumatic Chest Common normals: inspection of chest normal and palpation of chest normal Respiratory Common normals: normal respiratory effort, no retractions and no use of accessory muscles; not clear to ascultation bilaterally Auscultation: rhonchi, wheezes and diminished lung sounds Cardio Common normals: irregular rate and irregular rhythm Rate: tachycardic Rhythm: abnormal rhythm GI Common normals: Normal to inspection, nondistended, normoactive bowel sounds present, soft to palpation and non-tender Extremity Common normals: abnormal to inspection (3+ edema bilateral lower extremities) Results Labs Labs: Short CBC 06/05/24 Range/Units 14:57 WBC 9.0 (4.0-11.0) 10^3/uL Hgb 13.0 L (14.0-18.0) g/dL Hct 41.4 L (42.0-54.0) % Plt Count 217 (150-450) 10^3/uL BMP 06/05/24 14:57 Sodium 131 L Potassium 5.7 H Chloride 89 L Carbon Dioxide 38.8 H BUN 26.0 H Creatinine 1.27 Glucose 183 H Calcium 9.2 Liver Function 06/05/24 Range/Units 14:57 Total Bilirubin 0.3 (0.2-1.0) mg/dL AST 16 (15-37) U/L ALT 43 (16-63) U/L Alkaline Phosphatase 67 (46-116) U/L Albumin 3.1 L (3.4-5.0) g/dL Assessment and Plan Assessment and Plan (1) Pulmonary embolism: (2) Blister of left foot without infection: (3) Lymphedema: (4) Non-insulin dependent diabetes mellitus: (5) COPD exacerbation: (6) Hypothyroidism: (7) Anemia: (8) Lung cancer: (9) Atrial fibrillation with rapid ventricular response: (10) History of DVT (deep vein thrombosis): (11) Hyperkalemia: (12) Hyponatremia: (13) Iron deficiency anemia: (14) Moderate protein-calorie malnutrition: Plan Admission findings: Tachycardia, respiratory distress, hyponatremia, hyperkalemia, dyspnea secondary to pulmonary embolism-no heart strain noted on CT scan. Smaller segments would not suspect interventional treatment would be appropriate at this time. Patient to be admitted for heparin therapy for today and then tomorrow can start Coumadin. Acute pulmonary embolism-see treatment as outlined above, this would be an Eliquis failure. Check venous Doppler Peripheral edema-BNP is normal, will repeat tomorrow. Maintain diuretics. Peripheral edema may be more lymphedema. NIDDM-insulin sliding scale Hyperkalemia-uncertain etiology-will repeat lab tonight, and in a.m. Hyponatremia-this may be secondary to his Jardiance and diuretics. Will repeat in a.m. Moderate protein calorie malnutrition-diet management COPD- wheezing, will place on [id number] aerosols try to obtain sputum culture no fevers no leukocytosis we will hold off on antibiotics Lung cancer-continue with preventive treatment as outlined on medication list from home GERD-continue with PPI but will change to IV especially with being on the heparin therapy Admission status: Patient is an Eliquis failure with pulmonary embolism despite being on Eliquis without missing any doses. This is likely complicated by his cancer. Change patient to Coumadin therapy. Unable to start Coumadin until tomorrow due to risk of hypercoagulability when starting Coumadin within the first 12 hours. Medically necessary treatment will span 2 midnights. Inpatient status
--- NOTE | 2024-06-05 17:55 | US_ITS ---
[facility] [place] [id number] Patient Name: BLANCA ADAMSON MRN: [id number] date: 1955 Sex: M Assigned Patient Location: [place] Current Patient Location: [place] Accession/Order Number: [id number] Exam Date: 06/05/2024 19:00 Report Date: 06/05/2024 21:22 At the request of: GABRIEL LR Procedure: US venous doppler LE BI US venous doppler LE BI, 06/05/2024 6:00 PM CDT: History: edema. Comparison: None. Technique: Grayscale, color Doppler, and spectral Doppler imaging of the deep veins of the bilateral lower extremities were performed. Findings: The deep veins of the bilateral lower extremities demonstrate normal compression, Spectral flow, and color Doppler signal. There is no evidence of deep vein thrombosis. US/US venous doppler LE BI Impression: No evidence of deep vein thrombosis within either lower extremity. Electronically authenticated by: WILLIE VILLAGOMEZ Date: 06/05/2024 21:22
[2024-06-05 18:45] LABS: Partial Thromboplastin Time 28.2 sec (22.3-36.2)
[2024-06-05 19:07] LABS: Anion Gap 7.9; BUN Creatinine Ratio 17.8; Calcium 9.6 mg/dL (8.5-10.1); Carbon Dioxide 39.5 mmol/L (21.0-32.0); Chloride 91 mmol/L (98-107); Estimated GFR (African America >60 (>=60); Estimated GFR (Non-African Ame 52 (>=60); Glucose 166 mg/dL (74-106); Potassium 5.4 mmol/L (3.5-5.1); Sodium 133 mmol/L (136-145)
[2024-06-05 20:45] LABS: Glucometer 207 mg/dL (74-106)
[2024-06-05] MEDS: METOPROLOL SUCCINATE 50 MG TAB.ER.24H PO (21:20)
[2024-06-05] MEDS: GABAPENTIN 400 MG CAPSULE PO (21:20)
[2024-06-05] MEDS: INSULIN ASPART 300 UNIT/3 ML PEN SUBQ (21:27)
[2024-06-05] MEDS: IPRATROPIUM/ALBUTEROL SULFATE 3 ML AMPUL.NEB IH (23:21)
[2024-06-05] MEDS: BUDESONIDE 0.5 MG/2 ML AMPULE NEB IH (23:21)
[2024-06-06] VITALS (17 sets, daily range): BP systolic 112–144; BP diastolic 72–82; PULSE 79–106; TEMP 36.4–36.7; O2SAT 95–98
[2024-06-06] MEDS: IPRATROPIUM/ALBUTEROL SULFATE 3 ML AMPUL.NEB IH ×4 (05:09→22:11)
[2024-06-06 05:21] LABS: Basophils Percent Auto 0.4 % (0.2-2.0); Eosinophils Percent Auto 0.1 % (0.9-7.0); Hematocrit 40.1 % (42.0-54.0); Hemoglobin 12.4 g/dL (14.0-18.0); Immature Granulocytes Abs Auto 0.13 10^3/uL (0.00-0.03); Immature Granulocytes Pct Auto 1.6 % (0.0-0.5); Lymphocytes Absolute Auto 0.6 10^3/uL (1.2-3.8); Mean Corpuscular HGB Conc 30.9 g/dL (29.9-35.2); Mean Corpuscular Hemoglobin 32.1 pg (25.9-34.0); Mean Corpuscular Volume 103.9 fL (80.0-94.0); Mean Platelet Volume 9.4 fL (9.5-13.5); Monocytes Percent Auto 12.4 % (1.7-12.0); Neutrophils Absolute Auto 6.4 10^3/uL (1.4-6.5); Neutrophils Percent Auto 78.5 % (43.0-75.0); Platelet Count 197 10^3/uL (150-450); Red Blood Count 3.86 10^6/uL (4.70-6.10); White Blood Count 8.2 10^3/uL (4.0-11.0)
[2024-06-06 05:36] LABS: INR 0.97; Prothrombin Time 10.3 sec (9.0-11.6)
[2024-06-06 05:45] LABS: Alanine Aminotransferase 39 U/L (16-63); Albumin Globulin Ratio 0.9; Albumin Level 2.9 g/dL (3.4-5.0); Alkaline Phosphatase 59 U/L (46-116); Anion Gap 4.8; Aspartate Amino Transferase 17 U/L (15-37); BUN Creatinine Ratio 16.4; Bilirubin Total 0.3 mg/dL (0.2-1.0); Calcium 9.2 mg/dL (8.5-10.1); Carbon Dioxide 41.6 mmol/L (21.0-32.0); Chloride 94 mmol/L (98-107); Estimated GFR (African America >60 (>=60); Estimated GFR (Non-African Ame 56 (>=60); Globulin 3.4 g/dL; Glucose 128 mg/dL (74-106); Magnesium 2.1 mg/dL (1.8-2.4); Potassium 4.4 mmol/L (3.5-5.1); Sodium 136 mmol/L (136-145); Total Protein 6.3 g/dL (6.4-8.2)
[2024-06-06 05:56] LABS: Partial Thromboplastin Time 86.3 sec (22.3-36.2)
[2024-06-06] MEDS: GABAPENTIN 400 MG CAPSULE PO ×3 (06:18→21:42)
[2024-06-06 07:56] LABS: Glucometer 130 mg/dL (74-106)
[2024-06-06] MEDS: FUROSEMIDE 40 MG TABLET PO (08:52)
[2024-06-06] MEDS: DILTIAZEM HCL 120 MG CAP.ER.24H PO (08:52)
[2024-06-06] MEDS: CANAGLIFLOZIN 100 MG TABLET 300 MG PO (08:53)
[2024-06-06] MEDS: OMEPRAZOLE 40 MG CAPSULE.DR PO (08:54)
[2024-06-06] MEDS: METOPROLOL SUCCINATE 50 MG TAB.ER.24H PO ×2 (08:54→21:42)
[2024-06-06] MEDS: PREDNISONE 20 MG TABLET PO (08:55)
[2024-06-06] MEDS: BUDESONIDE 0.5 MG/2 ML AMPULE NEB IH ×2 (10:44→22:11)
--- NOTE | 2024-06-06 11:55 | P.IMPN_ITS ---
Progress Note: A&P Assessment and Plan (1) Pulmonary embolism: Assessment and Plan: Patient presented with acute right pulmonary embolism while he was on Eliquis for paroxysmal A-fib. Patient did not miss Eliquis and has been compliant with it. This will be considered an Eliquis failure patient was started on IV heparin drip overnight. I will switch him to subcutaneous Lovenox. We will start him on p.o. Coumadin. Patient will need to be treated with heparin at least for 48 hours and will need his INR to be in therapeutic range before he can be discharged. Will need outpatient follow-up with oncology and pulmonology. Qualifiers: Pulmonary embolism type: single subsegmental (without acute cor pulmonale) Qualified Code(s): I26.93 - Single subsegmental pulmonary embolism without acute cor pulmonale (2) (HFpEF) heart failure with preserved ejection fraction: Assessment and Plan: Appears volume overloaded on exam with +2 lower extremity edema. Will change to IV Lasix. Monitor intake/output. Qualifiers: Heart failure chronicity: acute on chronic Qualified Code(s): I50.33 - Acute on chronic diastolic (congestive) heart failure (3) COPD exacerbation: Assessment and Plan: Mild COPD exacerbation upon admission. Improved aeration and only faint visible wheeze on expiration. Continue with p.o. prednisone. Monitor closely (4) Chronic pleural effusion: Assessment and Plan: Chronic, monitor. (5) Chronic respiratory failure with hypoxia: Assessment and Plan: Patient is at baseline home regimen but he is experiencing dyspnea on exertion. Monitor oxygen. Treat the underlying cause as noted above (6) Lung cancer: Assessment and Plan: History of lung cancer currently in remission. However recent CTA chest is concerning for possible relapse with new nodule noted on left side along with mediastinal adenopathy. Will need outpatient follow-up with oncology. 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 Monitor. (9) Hyponatremia: Assessment and Plan: Improved. Monitor. (10) Afib: Assessment and Plan: In normal sinus rhythm. Patient was using Eliquis as outpatient for A-fib. Will need to be switched over to Coumadin because he developed pulmonary embolism while on Eliquis Qualifiers: Atrial fibrillation type: paroxysmal Qualified Code(s): I48.0 - Paroxysmal atrial fibrillation (11) Type 2 diabetes mellitus: Assessment and Plan: Continue with sliding scale insulin while inpatient. Continue with SGLT2 inhibitor. Qualifiers: Diabetes mellitus long-term insulin use: without long-term use Diabetes mellitus complication status: without complication Qualified Code(s): E11.9 - Type 2 diabetes mellitus without complications (12) Chronic disease anemia: Assessment and Plan: At baseline. Monitor. 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 Continue with same (14) Atelectasis of right lung: Assessment and Plan: Complete opacification of right lung. Chronic, slightly worse from baseline. Continue with pulmonary toilet. Monitor. Internal Medicine - PN: Subj Subjective Interval history: Seen and examined. Doing better today. Lower extremity edema has improved. On baseline home oxygen but feels short of breath on exertion Exam Constitutional Vital Signs, click to edit/add: Last Vital Signs Temp 98.0 F 06/06/24 11:00 Pulse 98 H 06/06/24 11:00 Resp 18 06/06/24 11:00 BP 114/73 06/06/24 11:00 Pulse Ox 95 06/06/24 11:00 O2 Del Method Nasal Cannula 06/06/24 10:47 O2 Flow Rate 2 06/06/24 10:47 Common normals: oriented x3 General appearance: cooperative and comfortable Nutritional appearance: obese HENMT Common normals: normocephalic and head/scalp atraumatic Respiratory Common normals: normal respiratory effort and no use of accessory muscles Effort & inspection: able to speak in complete sentences and tachypneic Auscultation: diminished lung sounds on the right Cardio Common normals: no JVD, regular rate, regular rhythm, S1 normal heart sound and S2 normal heart sound GI Common normals: Normal to inspection, nondistended, normoactive bowel sounds present Extremity General: edema (+2 LE edema) Neuro Common normals: oriented x3, moves all extremities, no focal motor deficits and no sensory deficits noted Psych Common normals: mental status grossly normal, thought process normal, denies homicidal ideation and denies suicidal ideation Internal Medicine - PN: Obj Da Labs Labs: Laboratory Results - last 24 hr 06/05/24 06/05/24 06/05/24 14:57 18:25 20:34 WBC 9.0 RBC 4.03 L Hgb 13.0 L Hct 41.4 L MCV 102.7 H MCH 32.3 MCHC 31.4 RDW 15.8 H Plt Count 217 MPV 9.3 L Neut % (Auto) Lymph % (Auto) [place] % (Auto) Eos % (Auto) Baso % (Auto) Neut # (Auto) Lymph # (Auto) [place] # (Auto) Eos # (Auto) Baso # (Auto) Abs Immat Gran (auto) Seg Neuts % (Manual) 86.0 H Lymphocytes % (Manual) 14.0 L Monocytes % (Manual) 0.0 L Eosinophils % (Manual) 0.0 L Basophils % (Manual) 0.0 L Imm/Tot Granulo (auto) Neutrophils # (Manual) 7.74 H Lymphocytes # (Manual) 1.26 Monocytes # (Manual) 0.00 L Eosinophils # (Manual) 0.00 Basophils # (Manual) 0.00 PT 10.1 INR 0.95 APTT 28.2 Sodium 131 L 133 L Potassium 5.7 H 5.4 H Chloride 89 L 91 L Carbon Dioxide 38.8 H 39.5 H Anion Gap 8.9 7.9 BUN 26.0 H 24.0 H Creatinine 1.27 1.35 H Est GFR ( Amer) >60 >60 Est GFR (Non-Af Amer) 56 L 52 L BUN/Creatinine Ratio 20.5 17.8 Glucose 183 H 166 H Calcium 9.2 9.6 Magnesium Total Bilirubin 0.3 AST 16 ALT 43 Alkaline Phosphatase 67 Troponin I High Sens 10.4 NT-Pro-B Natriuret Pep 403.0 Total Protein 6.7 Albumin 3.1 L Globulin 3.6 Albumin/Globulin Ratio 0.9 POC Glucose 207 H 06/06/24 06/06/24 06/06/24 00:00 05:10 07:55 WBC 8.2 RBC 3.86 L Hgb 12.4 L Hct 40.1 L MCV 103.9 H MCH 32.1 MCHC 30.9 RDW 16.0 H Plt Count 197 MPV 9.4 L Neut % (Auto) 78.5 H Lymph % (Auto) 7.0 L [place] % (Auto) 12.4 H Eos % (Auto) 0.1 L Baso % (Auto) 0.4 Neut # (Auto) 6.4 Lymph # (Auto) 0.6 L [place] # (Auto) 1.0 H Eos # (Auto) 0.0 Baso # (Auto) 0.0 Abs Immat Gran (auto) 0.13 H Seg Neuts % (Manual) Lymphocytes % (Manual) Monocytes % (Manual) Eosinophils % (Manual) Basophils % (Manual) Imm/Tot Granulo (auto) 1.6 H Neutrophils # (Manual) Lymphocytes # (Manual) Monocytes # (Manual) Eosinophils # (Manual) Basophils # (Manual) PT 10.3 INR 0.97 APTT 139.0 H* 86.3 H* Sodium 136 Potassium 4.4 Chloride 94 L Carbon Dioxide 41.6 H Anion Gap 4.8 BUN 21.0 H Creatinine 1.28 Est GFR ( Amer) >60 Est GFR (Non-Af Amer) 56 L BUN/Creatinine Ratio 16.4 Glucose 128 H Calcium 9.2 Magnesium 2.1 Total Bilirubin 0.3 AST 17 ALT 39 Alkaline Phosphatase 59 Troponin I High Sens 13.0 NT-Pro-B Natriuret Pep 363.0 Total Protein 6.3 L Albumin 2.9 L Globulin 3.4 Albumin/Globulin Ratio 0.9 POC Glucose 130 H
[2024-06-06 12:12] LABS: Glucometer 213 mg/dL (74-106)
[2024-06-06 12:42] LABS: Partial Thromboplastin Time 31.6 sec (22.3-36.2)
[2024-06-06] MEDS: FUROSEMIDE 40 MG/4 ML VIAL IVP (13:28)
[2024-06-06 16:26] LABS: Glucometer 245 mg/dL (74-106)
[2024-06-06] MEDS: WARFARIN SODIUM 10 MG TABLET PO (17:15)
[2024-06-06] MEDS: INSULIN ASPART 300 UNIT/3 ML PEN SUBQ ×2 (17:16→21:42)
[2024-06-06 20:04] LABS: Glucometer 397 mg/dL (74-106)
[2024-06-06] MEDS: ENOXAPARIN SODIUM 120 MG/0.8 ML SYRINGE SUBQ (21:42)
[2024-06-07] VITALS (21 sets, daily range): BP systolic 116–125; BP diastolic 72–83; PULSE 76–104; TEMP 36.5–36.7; O2SAT 9–987
[2024-06-07] MEDS: IPRATROPIUM/ALBUTEROL SULFATE 3 ML AMPUL.NEB IH ×4 (04:31→23:17)
[2024-06-07] MEDS: GABAPENTIN 400 MG CAPSULE PO ×3 (06:18→21:57)
[2024-06-07] MEDS: OMEPRAZOLE 40 MG CAPSULE.DR PO (06:18)
[2024-06-07 07:16] LABS: Basophils Percent Auto 0.3 % (0.2-2.0); Eosinophils Percent Auto 0.4 % (0.9-7.0); Hemoglobin 12.2 g/dL (14.0-18.0); Immature Granulocytes Abs Auto 0.11 10^3/uL (0.00-0.03); Immature Granulocytes Pct Auto 1.6 % (0.0-0.5); Lymphocytes Absolute Auto 0.5 10^3/uL (1.2-3.8); Lymphocytes Percent Auto 7.8 % (20.5-60.0); Mean Corpuscular HGB Conc 30.5 g/dL (29.9-35.2); Mean Corpuscular Hemoglobin 31.9 pg (25.9-34.0); Mean Corpuscular Volume 104.7 fL (80.0-94.0); Mean Platelet Volume 9.5 fL (9.5-13.5); Monocytes Absolute Auto 0.7 10^3/uL (0.3-0.8); Monocytes Percent Auto 10.8 % (1.7-12.0); Neutrophils Absolute Auto 5.3 10^3/uL (1.4-6.5); Neutrophils Percent Auto 79.1 % (43.0-75.0); Platelet Count 200 10^3/uL (150-450); Red Blood Count 3.82 10^6/uL (4.70-6.10); White Blood Count 6.8 10^3/uL (4.0-11.0)
[2024-06-07 07:32] LABS: Alanine Aminotransferase 40 U/L (16-63); Albumin Globulin Ratio 0.9; Alkaline Phosphatase 59 U/L (46-116); Aspartate Amino Transferase 15 U/L (15-37); BUN Creatinine Ratio 16.4; Bilirubin Total 0.3 mg/dL (0.2-1.0); Calcium 9.2 mg/dL (8.5-10.1); Carbon Dioxide 41.9 mmol/L (21.0-32.0); Chloride 92 mmol/L (98-107); Estimated GFR (African America >60 (>=60); Estimated GFR (Non-African Ame 56 (>=60); Globulin 3.4 g/dL; Glucose 106 mg/dL (74-106); Potassium 3.9 mmol/L (3.5-5.1); Sodium 133 mmol/L (136-145); Total Protein 6.4 g/dL (6.4-8.2)
[2024-06-07] MEDS: PREDNISONE 20 MG TABLET PO (09:46)
[2024-06-07] MEDS: DILTIAZEM HCL 120 MG CAP.ER.24H PO (09:46)
[2024-06-07] MEDS: FUROSEMIDE 40 MG/4 ML VIAL IVP ×2 (09:47→21:55)
[2024-06-07] MEDS: CANAGLIFLOZIN 100 MG TABLET 300 MG PO (09:47)
[2024-06-07] MEDS: ENOXAPARIN SODIUM 120 MG/0.8 ML SYRINGE SUBQ ×2 (09:47→21:55)
[2024-06-07] MEDS: METOPROLOL SUCCINATE 50 MG TAB.ER.24H PO ×2 (09:47→21:55)
--- NOTE | 2024-06-07 10:50 | PM.IMPN1 ---
Progress Note: A&P Assessment and Plan (1) Pulmonary embolism: Assessment and Plan: Eliquis bridging to Coumadin. Continue with Coumadin and Eliquis. No evidence of cardiopulmonary compromise. Blood pressure is stable. Monitor closely. Qualifiers: Pulmonary embolism type: single subsegmental (without acute cor pulmonale) Qualified Code(s): I26.93 - Single subsegmental pulmonary embolism without acute cor pulmonale (2) (HFpEF) heart failure with preserved ejection fraction: Assessment and Plan: Patient has evidence of volume overload on exam with exertional dyspnea. Continue with IV Lasix 40 twice daily. Monitor intake/output, daily weights. Monitor serum electrolytes closely. Please send labs. Asked her to move back to Ortho dislocation issue if you prescribe a nonnarcotic it would usually send he does not get better but there is a different halfhearted we are it gives you like this does not want a narcotic Qualifiers: Heart failure chronicity: acute on chronic Qualified Code(s): I50.33 - Acute on chronic diastolic (congestive) heart failure (3) COPD exacerbation: Assessment and Plan: Mild COPD exacerbation upon admission. Improved aeration and no wheezing today. Continue with p.o. prednisone. Monitor closely (4) Chronic pleural effusion: Assessment and Plan: Chronic, monitor. (5) Chronic respiratory failure with hypoxia: Assessment and Plan: Patient is at baseline home regimen but he is experiencing dyspnea on exertion. Monitor oxygen. Treat the underlying cause as noted above. Needs IV diuresis for volume overload. (6) Lung cancer: Assessment and Plan: History of lung cancer currently in remission. However recent CTA chest is concerning for possible relapse with new nodule noted on left side along with mediastinal adenopathy. Will need outpatient follow-up with oncology. 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 Monitor. (9) Hyponatremia: Assessment and Plan: Improved. Monitor. (10) Afib: Assessment and Plan: In normal sinus rhythm. Patient was using Eliquis as outpatient for A-fib. Will need to be switched over to Coumadin because he developed pulmonary embolism while on Eliquis Qualifiers: Atrial fibrillation type: paroxysmal Qualified Code(s): I48.0 - Paroxysmal atrial fibrillation (11) Type 2 diabetes mellitus: Assessment and Plan: Continue with sliding scale insulin while inpatient. Continue with SGLT2 inhibitor FSBS above goal. 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 Monitor. 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 Continue with same (14) Atelectasis of right lung: Assessment and Plan: Complete opacification of right lung. Chronic, slightly worse from baseline. Continue with pulmonary toilet. Monitor. Internal Medicine - PN: Subj Subjective Interval history: Seen and examined. No overnight events. No active complaints to offer. Lower extremity edema is improving with IV Lasix. Exam Constitutional Vital Signs, click to edit/add: Last Vital Signs Temp 98.0 F 06/07/24 09:42 Pulse 94 H 06/07/24 10:00 Resp 22 H 06/07/24 09:42 BP 120/83 06/07/24 09:42 Pulse Ox 97 06/07/24 09:42 O2 Del Method Nasal Cannula 06/07/24 09:42 O2 Flow Rate 2 06/07/24 09:42 Common normals: oriented x3 General appearance: cooperative and comfortable Nutritional appearance: obese Respiratory Common normals: normal respiratory effort and no use of accessory muscles Effort & inspection: able to speak in complete sentences Auscultation: diminished lung sounds on the right Cardio Common normals: no JVD, regular rate, regular rhythm, S1 normal heart sound and S2 normal heart sound GI Common normals: Normal to inspection, nondistended, normoactive bowel sounds present Extremity General: edema (+2 LE edema) Neuro Common normals: oriented x3, moves all extremities, no focal motor deficits and no sensory deficits noted Psych Common normals: mental status grossly normal, thought process normal, denies homicidal ideation and denies suicidal ideation Internal Medicine - PN: Obj Da Labs Labs: Laboratory Results - last 24 hr 06/06/24 06/06/24 06/06/24 12:10 12:15 16:24 WBC RBC Hgb Hct MCV MCH MCHC RDW Plt Count MPV Neut % (Auto) Lymph % (Auto) [place] % (Auto) Eos % (Auto) Baso % (Auto) Neut # (Auto) Lymph # (Auto) [place] # (Auto) Eos # (Auto) Baso # (Auto) Abs Immat Gran (auto) Imm/Tot Granulo (auto) APTT 31.6 Sodium Potassium Chloride Carbon Dioxide Anion Gap BUN Creatinine Est GFR ( Amer) Est GFR (Non-Af Amer) BUN/Creatinine Ratio Glucose Calcium Magnesium Total Bilirubin AST ALT Alkaline Phosphatase Total Protein Albumin Globulin Albumin/Globulin Ratio POC Glucose 213 H 245 H 06/06/24 06/07/24 19:53 06:57 WBC 6.8 RBC 3.82 L Hgb 12.2 L Hct 40.0 L MCV 104.7 H MCH 31.9 MCHC 30.5 RDW 16.0 H Plt Count 200 MPV 9.5 Neut % (Auto) 79.1 H Lymph % (Auto) 7.8 L [place] % (Auto) 10.8 Eos % (Auto) 0.4 L Baso % (Auto) 0.3 Neut # (Auto) 5.3 Lymph # (Auto) 0.5 L [place] # (Auto) 0.7 Eos # (Auto) 0.0 Baso # (Auto) 0.0 Abs Immat Gran (auto) 0.11 H Imm/Tot Granulo (auto) 1.6 H APTT Sodium 133 L Potassium 3.9 Chloride 92 L Carbon Dioxide 41.9 H Anion Gap 3.0 BUN 21.0 H Creatinine 1.28 Est GFR ( Amer) >60 Est GFR (Non-Af Amer) 56 L BUN/Creatinine Ratio 16.4 Glucose 106 Calcium 9.2 Magnesium 2.0 Total Bilirubin 0.3 AST 15 ALT 40 Alkaline Phosphatase 59 Total Protein 6.4 Albumin 3.0 L Globulin 3.4 Albumin/Globulin Ratio 0.9 POC Glucose 397 H
[2024-06-07] MEDS: BUDESONIDE 0.5 MG/2 ML AMPULE NEB IH ×2 (10:52→23:17)
--- NOTE | 2024-06-07 10:58 | RESP.RT ---
Wears 2L at home
[2024-06-07 11:38] LABS: Glucometer 149 mg/dL (74-106)
[2024-06-07 16:23] LABS: Glucometer 257 mg/dL (74-106)
[2024-06-07 16:28] LABS: INR 1.19; Prothrombin Time 12.4 sec (9.0-11.6)
[2024-06-07] MEDS: INSULIN ASPART 300 UNIT/3 ML PEN SUBQ ×2 (16:46→22:01)
[2024-06-07] MEDS: WARFARIN SODIUM 5 MG TABLET 10 MG PO (17:40)
[2024-06-07 21:13] LABS: Glucometer 178 mg/dL (74-106)
[2024-06-07] MEDS: INSULIN DETEMIR 300 UNIT/3 ML INSULN.PEN 20 UNIT SUBQ (22:00)
[2024-06-08] VITALS (12 sets, daily range): BP systolic 111–133; BP diastolic 75–79; PULSE 80–117; TEMP 36.3–36.4; O2SAT 95–99
[2024-06-08] MEDS: IPRATROPIUM/ALBUTEROL SULFATE 3 ML AMPUL.NEB IH ×3 (04:12→16:06)
[2024-06-08 04:58] LABS: Basophils Percent Auto 0.2 % (0.2-2.0); Eosinophils Percent Auto 0.2 % (0.9-7.0); Hematocrit 39.4 % (42.0-54.0); Hemoglobin 12.1 g/dL (14.0-18.0); Immature Granulocytes Abs Auto 0.09 10^3/uL (0.00-0.03); Immature Granulocytes Pct Auto 1.5 % (0.0-0.5); Lymphocytes Absolute Auto 0.4 10^3/uL (1.2-3.8); Lymphocytes Percent Auto 6.5 % (20.5-60.0); Mean Corpuscular HGB Conc 30.7 g/dL (29.9-35.2); Mean Corpuscular Hemoglobin 32.1 pg (25.9-34.0); Mean Corpuscular Volume 104.5 fL (80.0-94.0); Mean Platelet Volume 9.4 fL (9.5-13.5); Monocytes Absolute Auto 0.5 10^3/uL (0.3-0.8); Monocytes Percent Auto 8.8 % (1.7-12.0); Neutrophils Percent Auto 82.8 % (43.0-75.0); Platelet Count 173 10^3/uL (150-450); Red Blood Count 3.77 10^6/uL (4.70-6.10); Red Cell Distribution Width 15.9 % (11.0-15.0)
[2024-06-08 05:19] LABS: Alanine Aminotransferase 40 U/L (16-63); Albumin Globulin Ratio 0.9; Albumin Level 2.9 g/dL (3.4-5.0); Alkaline Phosphatase 61 U/L (46-116); Anion Gap 0.7; Aspartate Amino Transferase 14 U/L (15-37); BUN Creatinine Ratio 16.3; Bilirubin Total 0.2 mg/dL (0.2-1.0); Calcium 9.2 mg/dL (8.5-10.1); Carbon Dioxide 44.4 mmol/L (21.0-32.0); Chloride 92 mmol/L (98-107); Estimated GFR (African America >60 (>=60); Estimated GFR (Non-African Ame 55 (>=60); Globulin 3.4 g/dL; Glucose 125 mg/dL (74-106); Potassium 4.1 mmol/L (3.5-5.1); Sodium 133 mmol/L (136-145); Total Protein 6.3 g/dL (6.4-8.2)
[2024-06-08] MEDS: GABAPENTIN 400 MG CAPSULE PO ×2 (05:52→13:34)
[2024-06-08] MEDS: OMEPRAZOLE 40 MG CAPSULE.DR PO (05:52)
--- NOTE | 2024-06-08 07:46 | P.PN_ITS ---
Progress Note: Subjective Subjective Interval history: Seen and examined. No overnight events. No active complaints to offer. Lower extremity edema is improving with IV Lasix. Exam Constitutional Vital Signs, click to edit/add: Last Vital Signs Temp 97.4 F L 06/08/24 04:00 Pulse 80 06/08/24 06:00 Resp 20 06/08/24 04:24 BP 119/78 06/08/24 04:00 Pulse Ox 99 06/08/24 04:24 O2 Del Method Nasal Cannula 06/08/24 04:24 O2 Flow Rate 2 06/08/24 04:24 Progress Note: Objective Labs Labs: Short CBC 06/08/24 Range/Units 04:48 WBC 6.0 (4.0-11.0) 10^3/uL Hgb 12.1 L (14.0-18.0) g/dL Hct 39.4 L (42.0-54.0) % Plt Count 173 (150-450) 10^3/uL BMP 06/08/24 04:48 Sodium 133 L Potassium 4.1 Chloride 92 L Carbon Dioxide 44.4 H BUN 21.0 H Creatinine 1.29 Glucose 125 H Calcium 9.2 Liver Function 06/08/24 Range/Units 04:48 Total Bilirubin 0.2 (0.2-1.0) mg/dL AST 14 L (15-37) U/L ALT 40 (16-63) U/L Alkaline Phosphatase 61 (46-116) U/L Albumin 2.9 L (3.4-5.0) g/dL Progress Note: A&P Assessment and Plan (1) Pulmonary embolism: Qualifiers: Pulmonary embolism type: single subsegmental (without acute cor pulmonale) Qualified Code(s): I26.93 - Single subsegmental pulmonary embolism without acute cor pulmonale (2) (HFpEF) heart failure with preserved ejection fraction: Qualifiers: Heart failure chronicity: acute on chronic Qualified Code(s): I50.33 - Acute on chronic diastolic (congestive) heart failure (3) COPD exacerbation: (4) Chronic pleural effusion: (5) Chronic respiratory failure with hypoxia: (6) Lung cancer: Qualifiers: Laterality: right Lung location: upper lobe of lung Qualified Code(s): C34.11 - Malignant neoplasm of upper lobe, right bronchus or lung (7) Hypothyroidism: Qualifiers: 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 Qualified Code(s): E06.3 - Autoimmune thyroiditis (8) Hyperkalemia: (9) Hyponatremia: (10) Afib: Qualifiers: Atrial fibrillation type: paroxysmal Qualified Code(s): I48.0 - Paroxysmal atrial fibrillation (11) Type 2 diabetes mellitus: Qualifiers: Diabetes mellitus complication status: without complication Diabetes mellitus medical terminologist insulin use: without custodial use Qualified Code(s): E11.9 - Type 2 diabetes mellitus without complications (12) Chronic disease anemia: (13) Chronic steroid use: (14) Atelectasis of right lung: Plan Admission findings: Tachycardia, respiratory distress, hyponatremia, hyperkalemia, dyspnea secondary to pulmonary embolism-no heart strain noted on CT scan. Continue with Lovenox, checking an INR later today, if greater than 1.8 okay for discharge Acute pulmonary embolism-Cont with high dose BID Lovenox Atrial fibrillation with controlled ventricular response-continue to monitor Peripheral edema with chronic heart failure with preserved ejection fraction-BNP is normal, will repeat tomorrow. Maintain diuretics. 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 Likely stable Moderate protein calorie malnutrition-diet management Anemia of chronic disease-continue to monitor COPD with steroid dependency and chronic O2 dependent respiratory failure- wheezing, will place on [id number] aerosols try to obtain sputum culture no fevers no leukocytosis we will hold off on antibiotics-check urine culture Lung cancer-continue with preventive treatment as outlined on medication list from home GERD-continue with PPI but will change to IV especially with being on the heparin therapy Admission status: Patient is an Eliquis failure with pulmonary embolism despite being on Eliquis without missing any doses. This is likely complicated by his cancer. Change patient to Coumadin therapy. Unable to start Coumadin until tomorrow due to risk of hypercoagulability when starting Coumadin within the first 12 hours. Medically necessary treatment will span 2 midnights. Continue inpatient status, possible discharge once INR elevated ?
[2024-06-08 08:04] LABS: INR 1.77; Prothrombin Time 17.7 sec (9.0-11.6)
--- NOTE | 2024-06-08 09:08 | REH.PTDLY ---
Physical Therapy Daily Note PT Daily Note/Assess Start: 06/06/24 10:33 Freq: Status: Active Protocol: Document 06/08/24 08:55 MARY (Rec: 06/08/24 09:08 ARTUROYOU [id number]) Physical Therapy Daily Note/Assessment Time In 08:29 Time Out 08:54 Subjective Pt just finished breakfast, agreeable to therapy. Therapeutic Exercise Minutes (minutes) 6 Therapeutic Exercise Units 0 Therapeutic Exercise Treatment Instructed in standing B HR, hip flexion, mini squats, hip abd 10x ea with UE support on RW. Pt fatigues the most with alt hip flexion. Therapeutic Activity Minutes (minutes) 14 Therapeutic Activity Units 1 Bed Mobility Ability Minimum Assist Chair Transfer Ability Standby Assistance Therapeutic Activity Comments Pt requires UNIVERSITY PROFESSOR with R hand to transfer supine to sit. Sit to stand transfers with cues to push off from bed 1x followed with gait training using RW 150 feet SBA with pt having slower adamaris towards end of gait. Fatigues and needed short seated rest break to recover. Sit to stand transfers 4x in a row with fatigue noted in B LEs. Pt has good standing tolerance during rx with support of RW. Total Therapy Minutes 20 Total Physical Therapy Units 1 Daily Note Summary Some SOB noted with gait, recovers quickly once seated. Pt does well with rx, but needs 2 rest breaks due to fatigue. Pt will be safe from a PT standpoint to return home with HH at [place].
--- NOTE | 2024-06-08 09:44 | PM.DS1 ---
DS: Providers Provider Date of admission: 06/05/24 18:12 Primary care physician: Darrell Stanley MD Consults: 06/05/24 17:51 Consult to Pharmacy Routine Consulting Provider: Reason for consultation: Please [place] me when Med Rec is Updated Has provider been notified: No Occupational Therapy Eval and Treat Routine Reason for consultation: Only if needed for Rehab Has provider been notified: No Physical Therapy Eval and Treat Routine Reason for consultation: Eval and Treat Has provider been notified: No DS: Diagnosis Discharge Diagnosis (1) Pulmonary embolism: Qualifiers: Pulmonary embolism type: single subsegmental (without acute cor pulmonale) Qualified Code(s): I26.93 - Single subsegmental pulmonary embolism without acute cor pulmonale (2) (HFpEF) heart failure with preserved ejection fraction: Qualifiers: Heart failure chronicity: acute on chronic Qualified Code(s): I50.33 - Acute on chronic diastolic (congestive) heart failure (3) COPD exacerbation: (4) Chronic pleural effusion: (5) Chronic respiratory failure with hypoxia: (6) Lung cancer: Qualifiers: Laterality: right Lung location: upper lobe of lung Qualified Code(s): C34.11 - Malignant neoplasm of upper lobe, right bronchus or lung (7) Hypothyroidism: Qualifiers: 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 Qualified Code(s): E06.3 - Autoimmune thyroiditis (8) Hyperkalemia: (9) Hyponatremia: (10) Afib: Qualifiers: Atrial fibrillation type: paroxysmal Qualified Code(s): I48.0 - Paroxysmal atrial fibrillation (11) Type 2 diabetes mellitus: Qualifiers: Diabetes mellitus senior care insulin use: without computer terminal operator use Diabetes mellitus complication status: without complication Qualified Code(s): E11.9 - Type 2 diabetes mellitus without complications (12) Chronic disease anemia: (13) Chronic steroid use: (14) Atelectasis of right lung: DS: Summary Hospital Course Hospital Course: Patient was seen and evaluated in the emergency room with increasing shortness of breath and chest pain. Pleuritic in nature. Found to have acute pulmonary embolism, no heart strain noted on CT scan, patient on Eliquis for atrial fibrillation. This would be considered an Eliquis failure. He was transitioned to heparin for immediate protection and then later changed to Lovenox and started on Coumadin the day after admission. Delay in Coumadin therapy to prevent acute thromboembolism from the combination of heparin and Coumadin at the same time. Patient was given Coumadin 10 mg a day for the last 3 days. His INR is up to 1.77. With next dose of Coumadin would likely go above the 1.8. At this point patient is medically stable for discharge to home. Medications to this. Follow-up with Coumadin clinic for Coumadin dosing. See me in the office later this week for initiation of new patient in the office Status at Discharge Overall status at discharge: patient is not back to baseline Time Spent with Patient Time attestation: Total time spent providing and/or coordinating discharge services: Time spent: greater than 30 minutes Exam Constitutional Vital Signs, click to edit/add: Last Vital Signs Temp 97.6 F 06/08/24 07:51 Pulse 88 06/08/24 08:00 Resp 22 H 06/08/24 07:51 BP 133/79 06/08/24 07:51 Pulse Ox 95 06/08/24 07:51 O2 Del Method Nasal Cannula 06/08/24 07:51 O2 Flow Rate 2 06/08/24 07:51 Documenting provider has reviewed patient's vital signs: yes Common normals: no apparent distress HENMT Common normals: normocephalic and head/scalp atraumatic Chest Common normals: inspection of chest normal and palpation of chest normal Respiratory Common normals: normal respiratory effort, no retractions and no use of accessory muscles; not clear to ascultation bilaterally Auscultation: rhonchi, wheezes and diminished lung sounds Cardio Common normals: irregular rate and irregular rhythm Rate: tachycardic Rhythm: abnormal rhythm GI Common normals: Normal to inspection, nondistended, normoactive bowel sounds present, soft to palpation and non-tender Extremity Common normals: abnormal to inspection (3+ edema bilateral lower extremities) DS: Data Data Completed and Pending Labs on day of discharge: Labs from last 24 hours 06/08/24 06/08/24 06/07/24 07:48 04:48 21:02 WBC 6.0 RBC 3.77 L Hgb 12.1 L Hct 39.4 L MCV 104.5 H MCH 32.1 MCHC 30.7 RDW 15.9 H Plt Count 173 MPV 9.4 L Neut % (Auto) 82.8 H Lymph % (Auto) 6.5 L [place] % (Auto) 8.8 Eos % (Auto) 0.2 L Baso % (Auto) 0.2 Neut # (Auto) 5.0 Lymph # (Auto) 0.4 L [place] # (Auto) 0.5 Eos # (Auto) 0.0 Baso # (Auto) 0.0 Abs Immat Gran (auto) 0.09 H Imm/Tot Granulo (auto) 1.5 H PT 17.7 H INR 1.77 Sodium 133 L Potassium 4.1 Chloride 92 L Carbon Dioxide 44.4 H Anion Gap 0.7 BUN 21.0 H Creatinine 1.29 Est GFR ( Amer) >60 Est GFR (Non-Af Amer) 55 L BUN/Creatinine Ratio 16.3 Glucose 125 H Calcium 9.2 Magnesium 2.0 Total Bilirubin 0.2 AST 14 L ALT 40 Alkaline Phosphatase 61 Total Protein 6.3 L Albumin 2.9 L Globulin 3.4 Albumin/Globulin Ratio 0.9 POC Glucose 178 H 06/07/24 06/07/24 06/07/24 16:22 16:09 11:36 WBC RBC Hgb Hct MCV MCH MCHC RDW Plt Count MPV Neut % (Auto) Lymph % (Auto) [place] % (Auto) Eos % (Auto) Baso % (Auto) Neut # (Auto) Lymph # (Auto) [place] # (Auto) Eos # (Auto) Baso # (Auto) Abs Immat Gran (auto) Imm/Tot Granulo (auto) PT 12.4 H INR 1.19 Sodium Potassium Chloride Carbon Dioxide Anion Gap BUN Creatinine Est GFR ( Amer) Est GFR (Non-Af Amer) BUN/Creatinine Ratio Glucose Calcium Magnesium Total Bilirubin AST ALT Alkaline Phosphatase Total Protein Albumin Globulin Albumin/Globulin Ratio POC Glucose 257 H 149 H Discharge Plan Discharge Disposition: Home, Self-Care Discharge Medications: New warfarin 5 mg tablet 5 mg PO DAILY Qty: 30 11RF Continued albuterol sulfate 2.5 mg /3 mL (0.083 %) solution for nebulization 2.5 mg inhalation Q6H diltiazem HCl 120 mg capsule,extended release 24hr 120 mg PO Q24H fluconazole 200 mg tablet 400 mg PO .every week Patient Comments: on levalbuterol HCl 1.25 mg/3 mL solution for nebulization 1.25 mg inhalation Q6H metoprolol succinate 50 mg tablet extended release 24 hr 25 mg PO Q12H omeprazole 40 mg capsule,delayed release(DR/EC) 40 mg PO QDAY ondansetron HCl 8 mg tablet 8 mg PO Q8H PRN (Reason: nausea and vomiting) prednisone 20 mg tablet 20 mg PO QDAY Rx Instructions: DOSE REDUCED TO 20 MG QD prochlorperazine maleate 10 mg tablet 10 mg PO Q6H PRN (Reason: nausea and vomiting) sulfamethoxazole-trimethoprim 800-160 mg tablet 1 tab PO .3 times per week Patient Comments: saturday, saturday, saturday metformin 500 mg Tablet 500 mg PO BIDWM Qty: 60 11RF (DME) blood-glucose meter [OneTouch Ultra2 Meter] Misc See Rx Instructions .Route Qty: 1 0RF Rx Instructions: use before breakfast and supper (DME) lancets [OneTouch UltraSoft 2 Lancet] 30 gauge misc See Rx Instructions .Route Qty: 100 11RF Rx Instructions: before breakfast and supper (DME) OneTouch Ultra Test Strip See Rx Instructions .Route Qty: 100 0RF Rx Instructions: before breakfast and lunch sennosides [Senna Lax] 8.6 mg tablet 8.6 mg PO DAILY PRN (Reason: constipation) Trelegy Ellipta 200-62.5-25 mcg blister with device 1 inh inhalation DAILY spironolactone 50 mg tablet 50 mg PO .qd Patient Comments: Pt has an order for both 50 mg and 25 mg that have been both filled 4 prior time. spironolactone 25 mg tablet 25 mg PO .qd gabapentin 400 mg capsule 400 mg PO TID furosemide 40 mg tablet 40 mg PO .qd Jardiance 25 mg tablet 25 mg PO QAM mycophenolate mofetil 500 mg tablet 500 mg PO Q12H Print Language: Greenlandic Forms: Portal Instructions
[2024-06-08] MEDS: ENOXAPARIN SODIUM 120 MG/0.8 ML SYRINGE SUBQ (10:04)
[2024-06-08] MEDS: CANAGLIFLOZIN 100 MG TABLET 300 MG PO (10:04)
[2024-06-08] MEDS: METOPROLOL SUCCINATE 50 MG TAB.ER.24H PO (10:05)
[2024-06-08] MEDS: DILTIAZEM HCL 120 MG CAP.ER.24H PO (10:05)
[2024-06-08] MEDS: FUROSEMIDE 40 MG/4 ML VIAL IVP (10:06)
[2024-06-08] MEDS: SULFAMETHOXAZOLE/TRIMETHOPRIM 800-160 MG TABLET 1 TAB PO (10:06)
[2024-06-08] MEDS: PREDNISONE 20 MG TABLET PO (10:06)
--- NOTE | 2024-06-08 11:04 | SWNOTE1 ---
SW spoke to case management and pt does have [facility]. JARROD sent all physician notes, PT notes, CRF, and dc med rec to [facility]. JARROD also sent same paperwork to [facility] to update Palliative Care as well. Pt is discharging today.
[2024-06-08] MEDS: BUDESONIDE 0.5 MG/2 ML AMPULE NEB IH (11:08)
[2024-06-08 11:29] LABS: Glucometer 153 mg/dL (74-106)
--- NOTE | 2024-06-08 11:53 | CM.NOTE ---
Discussed with pt about new medication, Coumadin and f/u with Coumadin clinic at discharge. Pt is established with [facility] and [facility] for palliative care. Important Message From Medicare discussed with pt and , pt verbalizes understanding and signs paper. Original given to pt and copy placed in pt's chart.
[2024-06-08] MEDS: INSULIN ASPART 300 UNIT/3 ML PEN SUBQ ×2 (11:59→16:52)
[2024-06-08] MEDS: WARFARIN SODIUM 5 MG TABLET 10 MG PO (16:49)
[2024-06-08 16:51] LABS: Glucometer 210 mg/dL (74-106)
--- NOTE | 2024-06-09 14:53 | CM.DCFOLLOWU ---
Person spoke with: Willem How are you feeling? Much better How is your pain? No pain Did you understand your discharge instructions? Yes Do you have any questions about your discharge instructions? No Were you given any prescriptions at discharge? Yes Were you able to get your prescriptions filled? Yes Do you understand how to take your medications as ordered? Yes Do you have any questions about your follow up appointment and do you plan to keep your follow up appointment? No questions beside Coumadin clinic has not called for an appt- transferred pt to Coumadin clinic Is there anything else that you would like to discuss? No Questions/Comments/Concerns/Other:
== END 2024-06-08 17:50 | disposition home health service (06) | DRG 175 ==
LOC: ER 17:42 → MS 18:15
PROVIDERS: Internal Medicine; Admitting Provider Family Medicine; Emergency Provider Emergency Medicine Emergency Medical Services; PCP Family Medicine; Visit Provider Family Medicine
DX: I26.93 Single subsegmental thrombotic pulmonary embolism without acute cor pulmonale (principal); I50.33 Acute on chronic diastolic (congestive) heart failure; E87.1 Hypo-osmolality and hyponatremia; E44.0 Moderate protein-calorie malnutrition; J96.11 Chronic respiratory failure with hypoxia; J98.11 Atelectasis; C34.11 Malignant neoplasm of upper lobe, right bronchus or lung; J44.1 Chronic obstructive pulmonary disease with (acute) exacerbation; R00.0 Tachycardia, unspecified; E87.5 Hyperkalemia; E11.9 Type 2 diabetes mellitus without complications; D44.9 Neoplasm of uncertain behavior of unspecified endocrine gland; K21.9 Gastro-esophageal reflux disease without esophagitis; Z79.01 Long term (current) use of anticoagulants; E03.9 Hypothyroidism, unspecified; Z79.890 Hormone replacement therapy; D63.8 Anemia in other chronic diseases classified elsewhere; Z79.52 Long term (current) use of systemic steroids; Z68.37 Body mass index [BMI] 37.0-37.9, adult; I48.0 Paroxysmal atrial fibrillation; I71.40 Abdominal aortic aneurysm, without rupture, unspecified; Z99.81 Dependence on supplemental oxygen; Z86.718 Personal history of other venous thrombosis and embolism; Z87.891 Personal history of nicotine dependence; Z79.84 Long term (current) use of oral hypoglycemic drugs; S90.822A Blister (nonthermal), left foot, initial encounter; X58.XXXA Exposure to other specified factors, initial encounter; I89.0 Lymphedema, not elsewhere classified; D50.9 Iron deficiency anemia, unspecified
CPT/HCPCS: 36415; 71045; 71275; 80048; 80053; 82948; 83735; 83880; 84484; 85007; 85025; 85027; 85610; 85730; 87070; 93005; 93970; 94640; 94667; 94668; 94761; 96365; 96366; 96372; 96375; 96376; 97161; 97165; 97530; 97535; 99285; J1644; J1650; J1940; J7512; Q9967

== ENCOUNTER 2024-06-09 13:36 | Outpatient (RCR) | payer MEDICARE, OTHER, SELFPAY | END 2024-06-19 10:20 | disposition home or self-care (01) | LOC: MM 13:36 | PROVIDERS: PCP Family Medicine; Visit Provider Internal Medicine | DX: Z51.81 Encounter for therapeutic drug level monitoring (principal); Z79.01 Long term (current) use of anticoagulants; I26.99 Other pulmonary embolism without acute cor pulmonale | CPT/HCPCS: 85610; G0463 ==

== ENCOUNTER 2024-06-22 01:45 | Outpatient (RCR) | payer MEDICARE, OTHER, SELFPAY | END 2024-07-20 23:47 | disposition home or self-care (01) | LOC: MM 01:45 | PROVIDERS: PCP Family Medicine; Visit Provider Internal Medicine | DX: Z51.81 Encounter for therapeutic drug level monitoring (principal); Z79.01 Long term (current) use of anticoagulants; I26.99 Other pulmonary embolism without acute cor pulmonale | CPT/HCPCS: 85610; G0463 ==

== ENCOUNTER 2024-07-21 02:41 | Outpatient (RCR) | payer MEDICARE, OTHER, SELFPAY | END 2024-08-20 23:41 | disposition home or self-care (01) | LOC: MM 02:41 | PROVIDERS: PCP Family Medicine; Visit Provider Internal Medicine | DX: Z51.81 Encounter for therapeutic drug level monitoring (principal); Z79.01 Long term (current) use of anticoagulants; I26.99 Other pulmonary embolism without acute cor pulmonale | CPT/HCPCS: 85610; G0463 ==

== ENCOUNTER 2024-08-21 13:32 | Outpatient (RCR) | payer MEDICARE, OTHER, SELFPAY | END 2024-09-19 23:59 | disposition home or self-care (01) | LOC: MM 13:32 | PROVIDERS: PCP Family Medicine; Visit Provider Internal Medicine | DX: Z51.81 Encounter for therapeutic drug level monitoring (principal); Z79.01 Long term (current) use of anticoagulants; I26.99 Other pulmonary embolism without acute cor pulmonale | CPT/HCPCS: 85610; G0463 ==

== ENCOUNTER 2024-09-21 06:13 | Outpatient (RCR) | payer MEDICARE, OTHER, SELFPAY | END 2024-10-20 09:08 | disposition home or self-care (01) | LOC: MM 06:13 | PROVIDERS: PCP Family Medicine; Visit Provider Internal Medicine | DX: Z51.81 Encounter for therapeutic drug level monitoring (principal); Z79.01 Long term (current) use of anticoagulants | CPT/HCPCS: 85610; G0463 ==

== ENCOUNTER 2024-10-22 01:53 | Outpatient (RCR) | payer MEDICARE, OTHER, SELFPAY | END 2024-11-20 14:28 | disposition home or self-care (01) | LOC: MM 01:53 | PROVIDERS: PCP Family Medicine; Visit Provider Internal Medicine | DX: Z51.81 Encounter for therapeutic drug level monitoring (principal); Z79.01 Long term (current) use of anticoagulants; I26.99 Other pulmonary embolism without acute cor pulmonale | CPT/HCPCS: 85610; G0463 ==

== ENCOUNTER 2024-11-23 00:35 | Outpatient (RCR) | payer MEDICARE, OTHER, SELFPAY | END 2024-12-18 10:20 | disposition home or self-care (01) | LOC: MM 00:35 | PROVIDERS: PCP Family Medicine; Visit Provider Internal Medicine | DX: Z51.81 Encounter for therapeutic drug level monitoring (principal); Z79.01 Long term (current) use of anticoagulants; I26.99 Other pulmonary embolism without acute cor pulmonale | CPT/HCPCS: 85610; G0463 ==

== ENCOUNTER 2024-12-19 12:42 | Outpatient (RCR) | payer MEDICARE, OTHER, SELFPAY | END 2025-01-15 12:44 | disposition home health service (06) | LOC: MM 12:42 | PROVIDERS: PCP Family Medicine; Visit Provider Internal Medicine | DX: Z51.81 Encounter for therapeutic drug level monitoring (principal); Z79.01 Long term (current) use of anticoagulants; I26.99 Other pulmonary embolism without acute cor pulmonale | CPT/HCPCS: 85610; G0463 ==

== ENCOUNTER 2025-01-05 07:23 | Outpatient (OUT) | payer MEDICARE, OTHER, SELFPAY ==
[2025-01-05 09:18] LABS: Chol HDL Ratio 3.8; Cholesterol 351 mg/dL (<=200); HDL Cholesterol 92 mg/dL (40-60); Triglycerides 186 mg/dL (<=150); VLDL CHOLESTEROL 37.2 mg/dL
[2025-01-05 10:32] LABS: Estimated Average Glucose 154 mg/dL
[2025-01-06 04:07] LABS: PSA, Free 0.51 ng/mL; Prostate Specific Ag 2.5 ng/mL (0.0-4.0)
== END 2025-01-05 07:24 | disposition home or self-care (01) ==
LOC: LAB 07:28
PROVIDERS: PCP Family Medicine; Visit Provider Family Medicine
DX: E78.00 Pure hypercholesterolemia, unspecified (principal); Z12.5 Encounter for screening for malignant neoplasm of prostate; E11.9 Type 2 diabetes mellitus without complications; E11.65 Type 2 diabetes mellitus with hyperglycemia; Z51.81 Encounter for therapeutic drug level monitoring; Z79.01 Long term (current) use of anticoagulants; I26.99 Other pulmonary embolism without acute cor pulmonale
CPT/HCPCS: 36415; 80061; 83036; 84153; 84154; 85610

== ENCOUNTER 2025-01-19 03:59 | Outpatient (RCR) | payer MEDICARE, OTHER, SELFPAY | END 2025-02-17 14:32 | disposition home or self-care (01) | LOC: MM 03:59 | PROVIDERS: PCP Family Medicine; Visit Provider Internal Medicine | DX: Z51.81 Encounter for therapeutic drug level monitoring (principal); Z79.01 Long term (current) use of anticoagulants | CPT/HCPCS: 85610; G0463 ==

== ENCOUNTER 2025-02-18 04:53 | Outpatient (RCR) | payer MEDICARE, OTHER, SELFPAY | END 2025-03-20 07:13 | disposition home or self-care (01) | LOC: MM 04:53 | PROVIDERS: PCP Family Medicine; Visit Provider Internal Medicine | DX: Z51.81 Encounter for therapeutic drug level monitoring (principal); Z79.01 Long term (current) use of anticoagulants | CPT/HCPCS: 85610; G0463 ==

== ENCOUNTER 2025-03-21 08:20 | Outpatient (RCR) | payer MEDICARE, OTHER, SELFPAY | END 2025-04-15 15:05 | disposition home or self-care (01) | LOC: MM 08:20 | PROVIDERS: PCP Family Medicine; Visit Provider Internal Medicine | DX: Z51.81 Encounter for therapeutic drug level monitoring (principal); Z79.1 Long term (current) use of non-steroidal anti-inflammatories (NSAID); I26.99 Other pulmonary embolism without acute cor pulmonale | CPT/HCPCS: 85610; G0463 ==

== ENCOUNTER 2025-04-20 02:38 | Outpatient (RCR) | payer MEDICARE, OTHER, SELFPAY | END 2025-05-20 16:59 | disposition home or self-care (01) | LOC: MM 02:38 | PROVIDERS: PCP Family Medicine; Visit Provider Internal Medicine | DX: Z51.81 Encounter for therapeutic drug level monitoring (principal); Z79.01 Long term (current) use of anticoagulants | CPT/HCPCS: 85610; G0463 ==

== ENCOUNTER 2025-05-19 09:51 | Emergency (ER) | payer MEDICARE, OTHER, SELFPAY ==
[2025-05-19] VITALS (77 sets, daily range): BP systolic 101–152; BP diastolic 62–108; PULSE 79–117; RESP 14–20; TEMP 36.6; O2SAT 83–99; BMI 38.5
--- NOTE | 2025-05-19 | XR_ITS ---
The [address] [address] Patient Name: BLANCA ADAMSON MRN: [id number] date: 1955 Sex: M Assigned Patient Location: ER Current Patient Location: ER Accession/Order Number: [id number] Exam Date: 05/19/2025 16:33 Report Date: 05/19/2025 16:35 At the request of: EMIL MEJÍA MD Procedure: XR chest 1V Single view chest: CLINICAL HISTORY: Post Intubation COMPARISON: CT chest performed earlier today. FINDINGS: ET tube in satisfactory position. NG tube tip below the level of the diaphragm. Complete whiteout of the right hemithorax consistent with the patient's known pleural effusion and lung collapse as seen on the prior CT chest study. Left lung demonstrates vascular congestion. Heart appears normal in size. XR/XR chest 1V IMPRESSION: ET TUBE IN SATISFACTORY POSITION. ENTERIC TUBE TIP IS BELOW THE LEVEL OF THE DIAPHRAGM. COMPLETE WHITE OUT OF THE RIGHT HEMITHORAX CONSISTENT WITH THE PATIENT'S KNOWN PLEURAL EFFUSION AND LUNG COLLAPSE. NEXT LEFT LUNG DEMONSTRATES VASCULAR CONGESTION. Impression dictated by: Austin Dozier Jr., D.O. 05/19/2025 4:35 PM Dictation Location: [place] [address] Electronically authenticated by: [id number] Y Date: 05/19/2025 16:35
--- NOTE | 2025-05-19 10:42 | ECG_ITS ---
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 Measurements Intervals [place] Rate: 90 P: 27 FL: 224 QRS: -14 QRSD: 110 T: 60 QT: 368 QTc: 415 Interpretive Statements 1100 Sinus rhythm 2231 First degree AV block 9150 abnormal ECG Compared to ECG 06/05/2024 14:56:27 Ventricular premature complex(es) no longer present Electronically Signed On 05-19-2025 19:49:02 EDT by LINDSAY BANGURA M.D.
--- NOTE | 2025-05-19 10:42 | CT_ITS ---
The [address] [address] Patient Name: BLANCA ADAMSON MRN: [id number] date: 1955 Sex: M Assigned Patient Location: ER Current Patient Location: .MAIN Accession/Order Number: [id number] Exam Date: 05/19/2025 12:33 Report Date: 05/19/2025 12:38 At the request of: EMIL MEJÍA MD Procedure: CT angio chest CT ANGIOGRAM OF THE CHEST, PULMONARY EMBOLISM PROTOCOL: CLINICAL INFORMATION: Right lung cancer. Weakness. Worsening dyspnea. COMPARISON: CT chest 06/05/2024 TECHNIQUE: Following intravenous injection of contrast CT scans of the chest were obtained using pulmonary embolism protocol. Coronal and sagittal reconstructed images, as well as volume rendered CT pulmonary angiographic images were also submitted.The CT exam was performed using one or more of the following dose reduction techniques: Automated exposure control, adjustment of the MA and/or Kv according to patient size, or use of the iterative reconstruction technique. FINDINGS: Pulmonary Vasculature: Contrast bolus is adequate for evaluation of pulmonary embolism. Pulmonary trunk appears nondilated. No filling defects are identified to suggest pulmonary embolism. Mediastinum : Thoracic aorta is normal in caliber. No pericardial effusion. No lymphadenopathy. The esophagus is grossly unremarkable. Lungs: Complete right lung collapse with associated pleural effusion similar configuration to the prior study. Left lung demonstrates left basilar atelectasis. No pneumothorax. Upper abdomen: No acute findings Soft tissue/bones: Soft tissues surrounding the chest wall demonstrate no acute findings. Osseous structures demonstrate degenerative change. CT/CT angio chest IMPRESSION: NO EVIDENCE OF ACUTE PULMONARY EMBOLISM. RIGHT LUNG COLLAPSE WITH ASSOCIATED PLEURAL EFFUSION SIMILAR CONFIGURATION TO THE PRIOR STUDY FROM 06/05/2024 LIKELY RELATED TO THE PATIENT'S HISTORY OF CANCER. Impression dictated by: Austin Dozier Jr., D.O. 05/19/2025 12:38 PM Dictation Location: [place] [address] Electronically authenticated by: [id number] Y Date: 05/19/2025 12:38
[2025-05-19 10:55] LABS: Hematocrit 41.5 % (42.0-54.0); Hemoglobin 12.2 g/dL (14.0-18.0); Mean Corpuscular HGB Conc 29.4 g/dL (29.9-35.2); Mean Corpuscular Hemoglobin 29.6 pg (25.9-34.0); Mean Corpuscular Volume 100.7 fL (80.0-94.0); Platelet Count 241 10^3/uL (150-450); Red Blood Count 4.12 10^6/uL (4.70-6.10); White Blood Count 9.8 10^3/uL (4.0-11.0)
[2025-05-19 10:57] LABS: Allen Test POSITIVE (POSITIVE); HCO3 ABG 43.0 mmol/L (22.0-26.0); Oxygen Saturation ABG 83.9 %
[2025-05-19] MEDS: IPRATROPIUM/ALBUTEROL SULFATE 3 ML AMPUL.NEB 6 ML IH (10:57)
[2025-05-19 10:58] LABS: Liters per Minute 2; O2 Mode NC; Puncture Site LR
[2025-05-19 10:59] LABS: ABG PCO2 79.9 mmHg (35.0-45.0); PO2 ABG 54.6 mmHg (80.0-100.0)
--- NOTE | 2025-05-19 11:00 | XR_ITS ---
The [address] [address] Patient Name: BLANCA ADAMSON MRN: [id number] date: 1955 Sex: M Assigned Patient Location: ER Current Patient Location: ER Accession/Order Number: [id number] Exam Date: 05/19/2025 11:22 Report Date: 05/19/2025 11:24 At the request of: EMIL MEJÍA MD Procedure: XR chest 1V XR chest 1V 05/19/2025 11:01 AM SIGNS AND SYMPTOMS: ^sob PROTOCOL: Frontal radiograph of the chest COMPARISON: 06/05/2024 FINDINGS: The trachea is midline. There is cardiomegaly which is unchanged. There is redemonstration of opacification of the right hemithorax with a right-sided pleural effusion. The bony thorax is intact. XR/XR chest 1V IMPRESSION: There is redemonstration of opacification of the right hemithorax with a right-sided pleural effusion. Similar cardiomegaly. Impression dictated by: Randy Swan M.D. 05/19/2025 11:24 AM Dictation Location: [place] [address] Electronically authenticated by: [id number] Y Date: 05/19/2025 11:24
[2025-05-19 11:04] LABS: Lactate/Lactic Acid 1.5 mmol/L (0.4-2.0)
[2025-05-19 11:09] LABS: Magnesium 2.0 mg/dL (1.8-2.4); NT Pro B Type Natriuretic Pept 452.0 pg/mL (<=900.0)
[2025-05-19 11:11] LABS: Alanine Aminotransferase 29 U/L (16-63); Albumin Globulin Ratio 0.7; Albumin Level 3.1 g/dL (3.4-5.0); Alkaline Phosphatase 78 U/L (46-116); Anion Gap 5.6; Aspartate Amino Transferase 16 U/L (15-37); Blood Urea Nitrogen 31.0 mg/dL (7.0-18.0); Calcium 9.2 mg/dL (8.5-10.1); Carbon Dioxide 43.6 mmol/L (21.0-32.0); Chloride 94 mmol/L (98-107); Estimated GFR (African America >60 (>=60 mL/min/1.73m^2); Estimated GFR (Non-African Ame 57 (>=60 mL/min/1.73m^2); Globulin 4.5 g/dL; Glucose 173 mg/dL (74-106); INR 1.89; Partial Thromboplastin Time 38.4 sec (22.3-36.2); Potassium 4.2 mmol/L (3.5-5.1); Prothrombin Time 18.8 sec (9.0-11.6); Sodium 139 mmol/L (136-145); Total Protein 7.6 g/dL (6.4-8.2)
[2025-05-19 11:21] LABS: Anisocytosis 1+; Basophils Abs Manual 0.00 10^3/uL (0.00-0.10); Basophils Percent Manual 0.0 % (0.2-2.0); Eosinophils Absolute Manual 0.09 10^3/uL (0.00-0.70); Eosinophils Percent Manual 1.0 % (0.9-7.0); Lymphocytes Absolute Manual 0.68 10^3/uL (1.20-3.80); Lymphocytes Percent Manual 7.0 % (20.5-60.0); Macrocytosis 1+; Monocytes Absolute Manual 0.39 10^3/uL (0.30-0.80); Monocytes Percent Manual 4.0 % (1.7-12.0); Segmented Neut Absolute Manual 8.62 10^3/uL (1.4-6.5); Segmented Neutrophils % Manual 88.0 (43.0-75.0)
--- NOTE | 2025-05-19 11:53 | ED.GENADUL1 ---
HPI HPI - General Adult General Chief complaint: Weakness Stated complaint: WEAKNESS Time Seen by Provider: 05/19/25 10:00 Source: patient Mode of arrival: ambulance History of Present Illness HPI narrative: Patient is a 70-year-old male who is presenting to the ER today with chief complaint of shortness of breath that has been worsening since last approximately. Patient has a history of lung cancer. Patient has gone through multiple treatments. 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 Patient's and daughter at bedside. Patient wears 2 L of oxygen at home, sometimes he will increase it to 3 L if he is doing strenuous activity. Patient has anasarca to abdomen, lower extremities, arms, slightly to his face. Patient has gained approximate 20 pounds in the last week of water weight. Patient does not wear BiPAP or CPAP at nighttime. Patient has had CPAP on 1 time in the past, secondary to high CO2 levels and delirious/hallucinating. Patient is currently not undergoing any treatments for cancer. Patient if presented that he would need additional treatments for cancer in the future, as of right now he would not go through any more treatments but the situation would need to be discussed. Patient lives at home with his . Patient has abdominal pain secondary to swelling and fluid overload. No nausea or vomiting. Patient And his states that his right lung is typically collapsed secondary to pneumonitis. The cancer is in remission as far as patient and family know. Patient came in by EMS secondary to bilateral lower extremity weakness, diffuse swelling, and difficulty breathing. EMS had reported that patient is on 4 L of nasal cannula at all times, that is not true per patient, and daughter at bedside. He typically wears 2 L all the time, uses 3 L if needed. Patient's oxygen level is normally in 88-94% Range with 2 L nasal cannula. All systems are negative except as noted/marked. All systems reviewed and otherwise negative. Nurses note and vital signs reviewed and patient is hypoxic compared to his normal baseline of 2 L nasal cannula, in the mid to high 80s, General: The patient appears well and in no apparent distress. Patient is resting comfortably on cart. Patient is not toxic, lethargic, or listless Skin: Warm, dry, no pallor noted. There is no rash noted. No petechiae, purpura. Patient has diffuse redness to mid lower abdomen secondary to edema and venous stasis. No acute signs of cellulitis. Patient has diffuse redness to bilateral lower extremities, circumferential from venous stasis, no acute signs of cellulitis. Head: Normocephalic, atraumatic, no airway impedance, no angioedema. Eye: Normal conjunctiva, no drainage, EOMI. PERRL. Bilateral upper and lower eyelids slightly swollen, Ears, Nose, Mouth, and Throat: oral mucosa is moist. Nares patent. Mouth without vesicles. Cardiovascular: Regular Rate and Rhythm, no murmur, gallop, rub Respiratory: Patient is in mild to moderate distress secondary to increased respiratory rate, increased oxygen demand. Decreased breath sounds bilateral, faint wheezing in bilateral lower extremities. Patient has slightly prolonged expiration. Back: non-tender, no CVA tenderness bilaterally to percussion. No CT LS midline pain GI: Obese, diffuse mid to lower abdominal edema, venous stasis no tenderness to palpation, no masses appreciated. No rebound, guarding, or rigidity noted. No distention Musculoskeletal: Patient has full range of motion of all of the extremities, weakness of bilateral lower extremities,, no motor, sensory, or focal neurological deficits Neurological: A&O x4, normal speech Psychiatric: Cooperative Related Data Home Medications ?Medication ?Instructions ?Recorded ?Confirmed albuterol sulfate 2.5 mg/3 mL 2.5 mg inhalation Q6H 05/20/23 05/19/25 (0.083 %) solution for nebulization diltiazem HCl 120 mg 120 mg PO Q24H 05/20/23 05/19/25 capsule,extended release 24 hr fluconazole 200 mg tablet 400 mg PO .every week 05/20/23 05/19/25 metoprolol succinate 50 mg 50 mg PO Q12H 05/20/23 05/19/25 tablet,extended release 24 hr omeprazole 40 mg capsule,delayed 40 mg PO QDAY 05/20/23 05/19/25 release ondansetron HCl 8 mg tablet 8 mg PO Q8H PRN nausea and vomiting 05/20/23 05/19/25 prochlorperazine maleate 10 mg 10 mg PO Q6H PRN nausea and 05/20/23 05/19/25 tablet vomiting sulfamethoxazole 800 1 tab PO .3 times per week 05/20/23 05/19/25 mg-trimethoprim 160 mg tablet empagliflozin 25 mg tablet 25 mg PO QAM 06/05/24 05/19/25 (Jardiance) fluticasone fur. 200 mcg-umeclid 1 inh inhalation DAILY 06/05/24 05/19/25 62.5 mcg-vilant 25 mcg inhalat.powder (Trelegy Ellipta) furosemide 40 mg tablet 40 mg PO .qd 06/05/24 05/19/25 gabapentin 400 mg capsule 400 mg PO TID 06/05/24 05/19/25 sennosides 8.6 mg tablet (Senna 34.4 mg PO DAILY constipation 06/05/24 05/19/25 Lax) spironolactone 50 mg tablet 50 mg PO .qd 06/05/24 05/19/25 buspirone 10 mg tablet 10 mg PO TID 05/19/25 05/19/25 prednisone 5 mg tablet 15 mg PO QDAY 05/19/25 05/19/25 simvastatin 20 mg tablet 20 mg PO .qhs 05/19/25 05/19/25 Previous Rx's ?Medication ?Instructions ?Recorded blood sugar diagnostic (OneTouch #100 ea 05/22/23 Ultra Test strips) blood-glucose meter (OneTouch #1 ea 05/22/23 Ultra2 Meter) lancets 30 gauge (OneTouch #100 ea 05/22/23 UltraSoft 2 Lancet) metformin 500 mg tablet 500 mg PO BIDWM #60 tabs 05/22/23 warfarin 5 mg tablet 5 mg PO DAILY #30 tabs 06/08/24 Allergies Allergy/AdvReac Type Severity Reaction Status Date / Time bee venom protein (honey bee) Allergy Severe Anaphylaxis Verified 05/19/25 12:39 Opioid HPI Opioid Management Most Recent Opioid Data: Last Pain Intensity 0 06/06/24, 10:34 Last ORT Total Score 3 06/05/24, 18:27 Last ORT Risk Category Low Risk 06/05/24, 18:27 [facility] Medical History (Updated 05/19/25 @ 13:01 by Bernardo Peralta MD) Hyponatremia ?E87.1 - Hypo-osmolality and hyponatremia (ICD-10) Hyperkalemia ?E87.5 - Hyperkalemia (ICD-10) Pulmonary embolism ?I26.99 - Other pulmonary embolism without acute cor pulmonale (ICD-10) COPD exacerbation ?J44.1 - Chronic obstructive pulmonary disease with (acute) exacerbation (ICD-10) Atelectasis of right lung ?J98.11 - Atelectasis (ICD-10) Chronic steroid use Chronic disease anemia ?D63.8 - Anemia in other chronic diseases classified elsewhere (ICD-10) Chronic pleural effusion ?J90 - Pleural effusion, not elsewhere classified (ICD-10) Type 2 diabetes mellitus ?E11.9 - Type 2 diabetes mellitus without complications (ICD-10) (HFpEF) heart failure with preserved ejection fraction ?I50.30 - Unspecified diastolic (congestive) heart failure (ICD-10) Afib ?I48.91 - Unspecified atrial fibrillation (ICD-10) Chronic respiratory failure with hypoxia ?J96.11 - Chronic respiratory failure with hypoxia (ICD-10) Hypercarbia ?R06.89 - Other abnormalities of breathing (ICD-10) Acute hyperglycemia ?R73.9 - Hyperglycemia, unspecified (ICD-10) Altered mental status ?R41.82 - Altered mental status, unspecified (ICD-10) Non-insulin dependent diabetes mellitus Lymphedema ?I89.0 - Lymphedema, not elsewhere classified (ICD-10) Blister of left foot without infection ?S90.822A - Blister (nonthermal), left foot, initial encounter (ICD-10) Iron deficiency anemia ?D50.9 - Iron deficiency anemia, unspecified (ICD-10) Moderate protein-calorie malnutrition ?E44.0 - Moderate protein-calorie malnutrition (ICD-10) Hypothyroidism ?E03.9 - Hypothyroidism, unspecified (ICD-10) Anemia ?D64.9 - Anemia, unspecified (ICD-10) COPD (chronic obstructive pulmonary disease) ?J44.9 - Chronic obstructive pulmonary disease, unspecified (ICD-10) AAA (abdominal aortic aneurysm) without rupture ?I71.40 - Abdominal aortic aneurysm, without rupture, unspecified (ICD-10) Lung cancer ?C34.90 - Malignant neoplasm of unspecified part of unspecified bronchus or lung (ICD-10) Atrial fibrillation with rapid ventricular response ?I48.91 - Unspecified atrial fibrillation (ICD-10) History of DVT (deep vein thrombosis) ?Z86.718 - Personal history of other venous thrombosis and embolism (ICD-10) Aspiration pneumonia ?J69.0 - Pneumonitis due to inhalation of food and vomit (ICD-10) Surgical History (Updated 06/05/24 @ 18:23 by Bev Arguello) H/O colonoscopy ?Z98.890 - Other specified postprocedural states (ICD-10) History of bronchoscopy ?Z98.890 - Other specified postprocedural states (ICD-10) Hx of tonsillectomy ?Z90.89 - Acquired absence of other organs (ICD-10) History of lung biopsy ?Z98.890 - Other specified postprocedural states (ICD-10) Family History (Updated 05/20/23 @ 18:54 by Naina Grigsby RN) Mother Family history of CHF (congestive heart failure) Brother Family history of CHF (congestive heart failure) Family history of cancer Family history of diabetes mellitus Family history of myocardial infarction Family history of stroke Family history of hypertension Father Family history of cancer Social History (Updated 06/05/24 @ 18:24 by Bev Arguello) Within the past year, how often did you have a drink containing alcohol: never Score interpretation: A score less than 4 is consistent with normal alcohol consumption. Smoking status: Former smoker Non-prescribed substance use: denies use Previous occupational history: retired Highest level of school completed/degree received: high school graduate Are you now , , , , never or living with a partner: In a typical week, how many times do you talk on the telephone with family, friends, or neighbors: 3 or more times per week How often do you get together with friends or relatives: 3 or more times per week How often do you attend restorationism or spiritism services: 4 or more times per year Do you belong to any clubs or organizations such as restorationism groups unions, fraternal or athletic groups, or school groups: no Total score: 3 Score interpretation: A score of greater than or equal to 2 indicates the lowest level of social isolation. Little interest or pleasure in doing things: not at all Feeling down, depressed, or hopeless: not at all Feel stressed/tense/nervous/anxious/difficulty sleeping: not at all Do you think of yourself as: straight/heterosexual Gender Identity: male Exam Constitutional Vital Signs, click to edit/add: Last Vital Signs Temp 98 F 05/19/25 09:54 Pulse 99 H 05/19/25 12:10 Resp 25 H 05/19/25 11:50 BP 114/80 05/19/25 12:07 Pulse Ox 97 05/19/25 12:10 O2 Del Method Nasal Cannula 05/19/25 10:58 O2 Flow Rate 2 05/19/25 10:58 FiO2 50 05/19/25 11:14 Course Vital Signs Vital signs: Vital Signs Temperature 98 F 05/19/25 09:54 Pulse Rate 79 05/19/25 09:54 Respiratory Rate 22 H 05/19/25 09:54 Blood Pressure 112/66 05/19/25 09:54 Pulse Oximetry 93 L 05/19/25 09:54 Oxygen Delivery Method Nasal Cannula 05/19/25 09:54 Oxygen Delivery Flow Rate 4 05/19/25 09:54 Temperature 98 F 05/19/25 09:54 Pulse Rate 99 H 05/19/25 12:10 Respiratory Rate 25 H 05/19/25 11:50 Blood Pressure 114/80 05/19/25 12:07 Pulse Oximetry 97 05/19/25 12:10 Oxygen Delivery Method Nasal Cannula 05/19/25 10:58 Oxygen Delivery Flow Rate 2 05/19/25 10:58 Fraction of Inspired Oxygen 50 05/19/25 11:14 Medical Decision Making MDM Narrative Medical decision making narrative: Patient seen and examined: Sepsis/shortness of breath workup was done. Differential diagnosis includes but is not limited to: PE, lung cancer, effusion, pneumonia, pneumothorax, MD, dehydration, sepsis, Diagnostics and management: Patient will have laboratory studies Relevant laboratory interpretation: ABG shows pH of 7.34, CO2 and 79, oxygen 54. Patient's H&H is 12/41. Radiological studies: Please see the formal radiological report. MPRESSION: There is redemonstration of opacification of the right hemithorax with a right-sided pleural effusion. Similar cardiomegaly. Reevaluation: Patient is breathing better and feeling better on BiPAP. 1200 patient is returning from CT of the chest, he was able to tolerate CT of the chest with BiPAP.] 1300 patient is breathing much better, feels better. Shared decision making: I discussed with the patient the necessary laboratory findings and radiological findings. Social barriers to healthcare: There are no food insecurities, there is no issue with transportation, there are no insurance barriers. Disposition: I discussed with the patient the results of the chest x-ray initially, and I showed a picture of the chest x-ray to patient, , daughter at bedside 5 minutes after the chest x-ray was taken. 1300 I did discussion with patient, , daughter, and was at bedside as well. CT of the chest was discussed with family. Patient has chronic changes to the right side. He has no new signs of cancer, no new signs of PE. Patient's slightly anemic, the largest concern is patient's pH of 7.34, CO2 79, oxygen 54 initially on ABG. Patient has been on BiPAP for more than an hour. Patient feels like he is breathing much better. Patient is tolerating the BiPAP well. Patient will be admitted to stepdown at [facility] for acute respiratory failure with hypoxia and hypercarbia, along with anasarca. Patient was given IV Lasix. Dr Frazier recommended patient to have Solu-Medrol 125 mg for 1 dose. Patient is on baseline prednisone. Patient will be admitted for further evaluation. Critical care time 45 minutes exclusive from separate billable procedures that were performed. The following was considered in the determination of critical care but not limited to the level of medical decision making, intensive cardiac and/or respiratory monitoring, frequent vital sign monitoring, evaluation of laboratory studies, evaluation of radiographic studies, oxygen monitoring, and constant monitoring and speaking to family at bedside Lab Data Lab results reviewed: Yes I reviewed the patient's lab results Labs: Lab Results 05/19/25 05/19/25 Range/Units 10:15 10:48 WBC 9.8 (4.0-11.0) 10^3/uL RBC 4.12 L (4.70-6.10) 10^6/uL Hgb 12.2 L (14.0-18.0) g/dL Hct 41.5 L (42.0-54.0) % MCV 100.7 H (80.0-94.0) fL MCH 29.6 (25.9-34.0) pg MCHC 29.4 L (29.9-35.2) g/dL RDW 16.1 H (11.0-15.0) % Plt Count 241 (150-450) 10^3/uL MPV 9.6 (9.5-13.5) fL Seg Neuts % (Manual) 88.0 H (43.0-75.0) Lymphocytes % (Manual) 7.0 L (20.5-60.0) % Monocytes % (Manual) 4.0 (1.7-12.0) % Eosinophils % (Manual) 1.0 (0.9-7.0) % Basophils % (Manual) 0.0 L (0.2-2.0) % Neutrophils # (Manual) 8.62 H (1.4-6.5) 10^3/uL Lymphocytes # (Manual) 0.68 L (1.20-3.80) 10^3/uL Monocytes # (Manual) 0.39 (0.30-0.80) 10^3/uL Eosinophils # (Manual) 0.09 (0.00-0.70) 10^3/uL Basophils # (Manual) 0.00 (0.00-0.10) 10^3/uL Anisocytosis 1+ Macrocytosis 1+ PT 18.8 H (9.0-11.6) sec INR 1.89 APTT 38.4 H (22.3-36.2) sec Puncture Site Lr ABG pH 7.340 L (7.350-7.450) ABG pCO2 79.9 H* (35.0-45.0) mmHg ABG pO2 54.6 L* (80.0-100.0) mmHg ABG HCO3 43.0 H (22.0-26.0) mmol/L ABG O2 Saturation 83.9 % ABG Base Excess 17.3 H (-2.0-2.0) mmol/L R[place]hawn Test Positive (POSITIVE) O2 Liters/Min 2 Sodium 139 (136-145) mmol/L Potassium 4.2 (3.5-5.1) mmol/L Chloride 94 L (98-107) mmol/L Carbon Dioxide 43.6 H (21.0-32.0) mmol/L Anion Gap 5.6 BUN 31.0 H (7.0-18.0) mg/dL Creatinine 1.26 (0.70-1.30) mg/dL Est GFR ( Amer) >60 (>=60 mL/min/1.73m^2) Est GFR (Non-Af Amer) 57 L (>=60 mL/min/1.73m^2) BUN/Creatinine Ratio 24.6 Glucose 173 H (74-106) mg/dL Lactate 1.5 (0.4-2.0) mmol/L Calcium 9.2 (8.5-10.1) mg/dL Magnesium 2.0 (1.8-2.4) mg/dL Total Bilirubin 0.3 (0.2-1.0) mg/dL AST 16 (15-37) U/L ALT 29 (16-63) U/L Alkaline Phosphatase 78 (46-116) U/L Troponin I High Sens 18.1 (4.0-76.1) pg/mL NT-Pro-B Natriuret Pep 452.0 (<=900.0) pg/mL Total Protein 7.6 (6.4-8.2) g/dL Albumin 3.1 L (3.4-5.0) g/dL Globulin 4.5 g/dL Albumin/Globulin Ratio 0.7 ECG Data Attestation: I personally reviewed and interpreted this ECG as follows: (EKG interpretation. Normal sinus rhythm at 90 beats a minute. Left axis deviation. Artifact seen. No acute ST elevation, no acute ectopy. QTc of 415.) Discharge Plan Discharge Chief Complaint: Weakness Clinical Impression: Acute respiratory failure with hypoxia and hypercarbia, Anasarca Patient Disposition: Admitted As Inpatient Time of Disposition Decision: 13:01 Condition: Serious
[2025-05-19] MEDS: METHYLPREDNISOLONE SOD SUCC PF 125 MG/2 ML VIAL IVP (13:15)
--- NOTE | 2025-05-19 13:21 | PM.IMHP1 ---
Internal Medicine - H&P: HPI History of Present Illness Chief complaint: WEAKNESS Narrative: This is a 70 y.o male with past medical hx of COPD, tobacco use, pneumonitis with diagnosis squamous cell carcinoma of the lung treated with tazlina and paclitaxel in addition to radiotherapy and more recently with immunotherapy with presumed radiation pneumonitis on the right side as the pathology was unilateral. He had a history of stenotrophomonas after bronchoscopy before as well. He follows with [facility] in [place], Dr. Ferrera, was on long taper of steroids without pneumonitis, was supposed to get his imaging every 12 weeks last visit was on . He is accompanied by his daughter and they state that even if he needs treatment for any cancer even though its remission now he will be high risk and not a good candidate given his functional frailty. Patient is here today for worsening shortness of breath over the last 2 to 3 weeks along with productive cough of yellow sputum, he did not have any fever or chills but he was getting more tired and he was getting more swelling as per his this started him to the hospital after worsening his symptoms. He is usually on 2 L nasal cannula apparently he was not getting better with oxygen denies any sick contact exposure. In the ED, patient was tachycardic with normal blood pressure however he was saturating 85% on 5 L nasal cannula. He is placed on BiPAP then. His CBC showed no leukocytosis. Platelet and hemoglobin were stable. Chemistry showed BUN of 31 with creatinine of 1.26, lactate was 1.5. BNP was 452. Troponin x 1 was negative. Chest x-ray showed redemonstration of opacification of the right hemothorax with a right-sided pleural effusion with similar cardiomegaly. CTA of the chest showed right lung collapse with associated pleural effusion similar configuration to the prior study from 06/05/2024 related to patient's history of cancer/pneumonitis. No evidence of acute pulmonary embolism. Patient admitted to the hospitalist service for further workup and management. Review of Systems ROS Status of ROS 10 or more systems reviewed and unremarkable except as noted in history and below [facility] Medical History (Updated 05/19/25 @ 13:34 by Juma Frazier MD) Hyponatremia ?E87.1 - Hypo-osmolality and hyponatremia (ICD-10) Hyperkalemia ?E87.5 - Hyperkalemia (ICD-10) Pulmonary embolism ?I26.99 - Other pulmonary embolism without acute cor pulmonale (ICD-10) COPD exacerbation ?J44.1 - Chronic obstructive pulmonary disease with (acute) exacerbation (ICD-10) Atelectasis of right lung ?J98.11 - Atelectasis (ICD-10) Chronic steroid use Chronic disease anemia ?D63.8 - Anemia in other chronic diseases classified elsewhere (ICD-10) Chronic pleural effusion ?J90 - Pleural effusion, not elsewhere classified (ICD-10) Type 2 diabetes mellitus ?E11.9 - Type 2 diabetes mellitus without complications (ICD-10) (HFpEF) heart failure with preserved ejection fraction ?I50.30 - Unspecified diastolic (congestive) heart failure (ICD-10) Afib ?I48.91 - Unspecified atrial fibrillation (ICD-10) Chronic respiratory failure with hypoxia ?J96.11 - Chronic respiratory failure with hypoxia (ICD-10) Hypercarbia ?R06.89 - Other abnormalities of breathing (ICD-10) Acute hyperglycemia ?R73.9 - Hyperglycemia, unspecified (ICD-10) Altered mental status ?R41.82 - Altered mental status, unspecified (ICD-10) Non-insulin dependent diabetes mellitus Lymphedema ?I89.0 - Lymphedema, not elsewhere classified (ICD-10) Blister of left foot without infection ?S90.822A - Blister (nonthermal), left foot, initial encounter (ICD-10) Iron deficiency anemia ?D50.9 - Iron deficiency anemia, unspecified (ICD-10) Moderate protein-calorie malnutrition ?E44.0 - Moderate protein-calorie malnutrition (ICD-10) Hypothyroidism ?E03.9 - Hypothyroidism, unspecified (ICD-10) Anemia ?D64.9 - Anemia, unspecified (ICD-10) COPD (chronic obstructive pulmonary disease) ?J44.9 - Chronic obstructive pulmonary disease, unspecified (ICD-10) AAA (abdominal aortic aneurysm) without rupture ?I71.40 - Abdominal aortic aneurysm, without rupture, unspecified (ICD-10) Lung cancer ?C34.90 - Malignant neoplasm of unspecified part of unspecified bronchus or lung (ICD-10) Atrial fibrillation with rapid ventricular response ?I48.91 - Unspecified atrial fibrillation (ICD-10) History of DVT (deep vein thrombosis) ?Z86.718 - Personal history of other venous thrombosis and embolism (ICD-10) Aspiration pneumonia ?J69.0 - Pneumonitis due to inhalation of food and vomit (ICD-10) Surgical History (Updated 06/05/24 @ 18:23 by Bev Arguello) H/O colonoscopy ?Z98.890 - Other specified postprocedural states (ICD-10) History of bronchoscopy ?Z98.890 - Other specified postprocedural states (ICD-10) Hx of tonsillectomy ?Z90.89 - Acquired absence of other organs (ICD-10) History of lung biopsy ?Z98.890 - Other specified postprocedural states (ICD-10) Family History (Updated 05/20/23 @ 18:54 by Naina Grigsby RN) Mother Family history of CHF (congestive heart failure) Brother Family history of CHF (congestive heart failure) Family history of cancer Family history of diabetes mellitus Family history of myocardial infarction Family history of stroke Family history of hypertension Father Family history of cancer Social History (Updated 06/05/24 @ 18:24 by Bev Arguello) Within the past year, how often did you have a drink containing alcohol: never Score interpretation: A score less than 4 is consistent with normal alcohol consumption. Smoking status: Former smoker Non-prescribed substance use: denies use Previous occupational history: retired Highest level of school completed/degree received: high school graduate Are you now , , , , never or living with a partner: In a typical week, how many times do you talk on the telephone with family, friends, or neighbors: 3 or more times per week How often do you get together with friends or relatives: 3 or more times per week How often do you attend muslim or christianity services: 4 or more times per year Do you belong to any clubs or organizations such as muslim groups unions, fraternal or athletic groups, or school groups: no Total score: 3 Score interpretation: A score of greater than or equal to 2 indicates the lowest level of social isolation. Little interest or pleasure in doing things: not at all Feeling down, depressed, or hopeless: not at all Feel stressed/tense/nervous/anxious/difficulty sleeping: not at all Do you think of yourself as: straight/heterosexual Gender Identity: male Meds Home Medications and Allergies Home Medications ?Medication ?Instructions ?Recorded ?Confirmed ?Type albuterol sulfate 2.5 mg/3 mL 2.5 mg inhalation Q6H 05/20/23 05/19/25 History (0.083 %) solution for nebulization diltiazem HCl 120 mg 120 mg PO DAILY 05/20/23 05/19/25 History capsule,extended release 24 hr fluconazole 200 mg tablet 400 mg PO .every week 05/20/23 05/19/25 History metoprolol succinate 50 mg 50 mg PO Q12H 05/20/23 06/05/24 History tablet,extended release 24 hr omeprazole 40 mg capsule,delayed 40 mg PO QDAY 05/20/23 05/19/25 History release ondansetron HCl 8 mg tablet 8 mg PO Q8H PRN nausea and vomiting 05/20/23 05/19/25 History prochlorperazine maleate 10 mg 10 mg PO Q6H PRN nausea and 05/20/23 05/19/25 History tablet vomiting sulfamethoxazole 800 1 tab PO .3 times per week 05/20/23 05/19/25 History mg-trimethoprim 160 mg tablet blood sugar diagnostic (OneTouch #100 ea 05/22/23 05/19/25 Rx Ultra Test strips) blood-glucose meter (OneTouch #1 ea 05/22/23 05/19/25 Rx Ultra2 Meter) lancets 30 gauge (OneTouch #100 ea 05/22/23 05/19/25 Rx UltraSoft 2 Lancet) metformin 500 mg tablet 500 mg PO BIDWM #60 tabs 05/22/23 05/19/25 Rx empagliflozin 25 mg tablet 25 mg PO QAM 06/05/24 05/19/25 History (Jardiance) fluticasone fur. 200 mcg-umeclid 1 inh inhalation DAILY 06/05/24 05/19/25 History 62.5 mcg-vilant 25 mcg inhalat.powder (Trelegy Ellipta) furosemide 40 mg tablet 40 mg PO .qd 06/05/24 05/19/25 History gabapentin 400 mg capsule 400 mg PO TID 06/05/24 05/19/25 History sennosides 8.6 mg tablet (Senna 34.4 mg PO DAILY constipation 06/05/24 05/19/25 History Lax) spironolactone 50 mg tablet 50 mg PO DAILY 06/05/24 05/19/25 History buspirone 10 mg tablet 10 mg PO TID 05/19/25 05/19/25 History potassium chloride 20 mEq 20 meq PO DAILY 05/19/25 05/19/25 History tablet,extended release(part/cryst) prednisone 5 mg tablet 15 mg PO QDAY 05/19/25 05/19/25 History simvastatin 20 mg tablet 20 mg PO .qhs 05/19/25 05/19/25 History warfarin 2.5 mg tablet 2.5 mg PO SUMOWETHSA@1700 05/19/25 05/19/25 History warfarin 5 mg tablet 5 mg PO TUFR@1700 05/19/25 05/19/25 History Allergies Allergy/AdvReac Type Severity Reaction Status Date / Time bee venom protein (honey bee) Allergy Severe Anaphylaxis Verified 05/19/25 12:39 Exam Narrative Exam Narrative: General: Obese patient, ill-appearing lethargic at times but oriented x 3 cracking jokes in acute distress. Following commands. Weakness noted all over, very pleasant Skin: Warm, dry, no pallor noted. There is no rash noted Head: Normocephalic, atraumatic, no airway impedance, no angioedema. Eye: Normal conjunctiva, no drainage, EOMI. PERRLA Ears, Nose, Mouth, and Throat: oral mucosa is moist. Nares patent. Mouth without vesicles. Neck/Thyoid: Supple, no JVD, no thyromegaly, no lymphadenopathy Cardiovascular: Regular Rate and Rhythm, no murmur, gallop, rub, normal S1 and S2 Respiratory: Patient is in moderate respiratory distress, he is lethargic at times however decreased bilateral air entry with bilateral rhonchi worse on the right side. No wheezes. 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 He is on BiPAP 15///50% Back: non-tender, no CVA tenderness bilaterally to percussion. No CT LS midline pain GI: Obese, diffuse mid to lower abdominal edema and anasarca, venous stasis no tenderness to palpation, no masses appreciated. No rebound, guarding, or rigidity noted Musculoskeletal: Patient has full range of motion of all of the extremities, weakness of bilateral lower extremities,, no motor, sensory, or focal neurological deficits Extremities:: Bilateral 2+ pitting edema, and positive, cellulitic changes related to venous stasis dermatitis Neurological: A&O x4, lethargic at times, states that he feels drowsy, following commands, generalized weakness but no focal motor or sensory deficits. Constitutional Vital Signs, click to edit/add: Last Vital Signs Temp 98 F 05/19/25 09:54 Pulse 100 H 05/19/25 12:40 Resp 25 H 05/19/25 11:50 BP 115/94 H 05/19/25 13:00 Pulse Ox 94 L 05/19/25 13:10 O2 Del Method Nasal Cannula 05/19/25 10:58 O2 Flow Rate 2 05/19/25 10:58 FiO2 50 05/19/25 11:14 Internal Medicine - H&P: Reslt Labs Labs: Short CBC 05/19/25 Range/Units 10:15 WBC 9.8 (4.0-11.0) 10^3/uL Hgb 12.2 L (14.0-18.0) g/dL Hct 41.5 L (42.0-54.0) % Plt Count 241 (150-450) 10^3/uL BMP 05/19/25 10:15 Sodium 139 Potassium 4.2 Chloride 94 L Carbon Dioxide 43.6 H BUN 31.0 H Creatinine 1.26 Glucose 173 H Calcium 9.2 Liver Function 05/19/25 Range/Units 10:15 Total Bilirubin 0.3 (0.2-1.0) mg/dL AST 16 (15-37) U/L ALT 29 (16-63) U/L Alkaline Phosphatase 78 (46-116) U/L Albumin 3.1 L (3.4-5.0) g/dL Assessment and Plan Assessment and Plan (1) Acute respiratory failure with hypoxia and hypercarbia: (2) Acute on chronic diastolic heart failure: (3) Anasarca: (4) Non-insulin dependent diabetes mellitus: (5) Lymphedema: (6) Hypothyroidism: Qualifiers: 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 Component of COPD exacerbation History of PE on warfarin - Admit patient to stepdown unit - Start patient on IV Lasix 40 mg twice daily - Start IV Solu-Medrol 40 mg every 12 hours - DuoNeb 4 times daily - Continue with home Trelegy - Obtain echo - Obtain CT abdomen pelvis without contrast - Continue BiPAP with a setting that I just mentioned up in my HPI, monitor respiratory status and neurologic status closely - Obtain another ABG at 3 PM today - Start IV Zosyn to be dosed by pharmacy - I had a lengthy discussion with the patient, his daughter and his at bedside. I explained to them that here at [facility] we do not have ICU backup and the patient is at low threshold for intubation. I explained to them that acutely we can still intubate and resuscitate however he will then be need to be transferred to a place with an ICU backup, preferably [place] given his history follow-up there. I spoke to the patient as well and I told him that I am more comfortable with him being transferred from [facility] to [facility]. I asked the patient however he mentioned that he would want to wait here and see how he does with our management and then will decide. Explained to him that sometimes the transfer may take up to 3 hours, still patient and family would like their wishes to be respected. I will admit the patient our stepdown unit after the patient or stands the risks of respiratory failure worsening and consequently . Will admit here and will treat him and will follow up and monitor him closely -I reconciled pt's medications as appropriate
[2025-05-19] MEDS: FUROSEMIDE 40 MG/4 ML VIAL IVP (13:42)
[2025-05-19 14:23] LABS: Oxygen Saturation ABG 93.8 %; PO2 ABG 78.1 mmHg (80.0-100.0)
[2025-05-19 14:24] LABS: Allen Test POSITIVE (POSITIVE); BIPAP Pressure 20/10; O2 Mode BIPAP; Puncture Site RR
[2025-05-19 14:26] LABS: ABG PCO2 >98.3 mmHg (35.0-45.0)
[2025-05-19] MEDS: DIAZEPAM 10 MG/2 ML SYRINGE 2.5 MG IV (14:31)
--- NOTE | 2025-05-19 14:59 | PC.NURSE ---
Dr Frazier at bedside to speak with family regarding intubating pt due to worsening ABGs. Anesthesia called to assist. Family are very unsure of intubation as they were told pt would never be able to get off a vent. Family request to check ABG again after pt received sedation at 230 pm , to see if there are any improvements. Pt resting in bed and family are talking among themselves regarding what to do.
[2025-05-19 15:14] LABS: Oxygen Saturation ABG 83.0 %
[2025-05-19 15:15] LABS: Allen Test POSITIVE (POSITIVE); O2 Mode BIPAP; Puncture Site RR
[2025-05-19 15:16] LABS: BIPAP Pressure 20/10; Rate 20
[2025-05-19 15:17] LABS: ABG PCO2 >98.3 mmHg (35.0-45.0); PO2 ABG 59.4 mmHg (80.0-100.0)
--- NOTE | 2025-05-19 15:20 | SWNOTE1 ---
SW called to assist with finding head waitress to read pt's last rights. JARROD spoke to ED engineering secretary, pt's nurse in room. JARROD spoke to Dr. Peralta and possibly intubating pt, but unsure at this time. Several people in room, anesthesia, Dr. Frazier, family, respiratory. Family is making decision on plan of care. Nurse did ask family member if they would like to speak to SW, family member voiced not really. Family member did step outside. JARROD let her know that SW was called to see if family needed assistance on finding a head waitress? Pt's family member voiced that someone has already made a call to their head waitress and they are working on it. No further needs at this time. JARROD updated Physician.
[2025-05-19] MEDS: ETOMIDATE 20 MG/10 ML VIAL IVP (16:00)
[2025-05-19] MEDS: ROCURONIUM BROMIDE 50 MG/5 ML VIAL 60 MG IV (16:01)
[2025-05-19] MEDS: PROPOFOL 1,000 MG/100 ML VIAL 7.947 MG IV (16:10)
[2025-05-19 16:44] LABS: Allen Test POSITIVE (POSITIVE); HCO3 ABG 42.7 mmol/L (22.0-26.0); O2 Mode MVENT; Oxygen Saturation ABG 95.0 %; PO2 ABG 83.4 mmHg (80.0-100.0)
[2025-05-19 16:45] LABS: Puncture Site RR; Rate 30
[2025-05-19 16:46] LABS: ABG PCO2 93.3 mmHg (35.0-45.0)
[2025-05-19] MEDS: MIDAZOLAM HCL 2 MG/2 ML VIAL IV (17:10)
[2025-05-19] MEDS: PIPERACILLIN SODIUM/TAZOBACTAM 3.375 GM in 0.9 % SODIUM CHLORIDE 50 ML IV (17:28)
--- NOTE | 2025-05-19 18:04 | PC.NURSE ---
Pt was intubated at 1605 with use of the Glydascope. &.5 cm ET tube placed, 25 at teeth and secured by RT. Vent settings determined by RT and Dr Frazier , AC 30, TV 300, FIo2 80%, PEEP +10. Lungs auscultated and chest x ray taken to confirm placement as well as confirming with CO2 detector. Diprivan drip started as per orders and protocol in new iv inserted into LAC. Size 16 hansen catheter was placed by Danay Nagy, and secured to leg. Good urine output noted . NG tbe placed via left nare, size 16 f. Air auscultated and taped in place .1625, 1000 mls pale yellow urine drained . 1650 ABG rechecked. 1715 Vent settings adjusted to AC30 TV 340, FIO2 80% and PEEP +8. Pt stabilized and transferring to [facility]. [facility] came to transport pt. Pt stable at time of departure
== END 2025-05-19 17:48 | disposition short-term general hospital (02) ==
PROVIDERS: Student in an Organized Health Care Education/Training Program; Emergency Provider Emergency Medicine; PCP Family Medicine
DX: J96.01 Acute respiratory failure with hypoxia (principal); J96.02 Acute respiratory failure with hypercapnia; R10.84 Generalized abdominal pain; R60.0 Localized edema; C34.90 Malignant neoplasm of unspecified part of unspecified bronchus or lung; J90 Pleural effusion, not elsewhere classified; I51.7 Cardiomegaly; R60.1 Generalized edema; Z99.81 Dependence on supplemental oxygen; Z87.891 Personal history of nicotine dependence; I50.33 Acute on chronic diastolic (congestive) heart failure; E11.9 Type 2 diabetes mellitus without complications; R54 Age-related physical debility; E06.3 Autoimmune thyroiditis; Z79.01 Long term (current) use of anticoagulants; Z79.84 Long term (current) use of oral hypoglycemic drugs
CPT/HCPCS: 31500; 36415; 36600; 51702; 71045; 71275; 80053; 81001; 82805; 83605; 83735; 83880; 84484; 85007; 85027; 85610; 85730; 87040; 93005; 94002; 94640; 94660; 96374; 96375; 99291; J1938; J2250; J2405; J2543; J2704; J2919; J3360; Q9967

== ENCOUNTER 2025-05-21 00:41 | Outpatient (RCR) | payer MEDICARE, OTHER, SELFPAY | END 2025-06-17 13:16 | disposition home or self-care (01) | LOC: MM 00:41 | PROVIDERS: PCP Family Medicine; Visit Provider Internal Medicine | DX: Z51.81 Encounter for therapeutic drug level monitoring (principal); Z79.01 Long term (current) use of anticoagulants; I26.99 Other pulmonary embolism without acute cor pulmonale ==

== ENCOUNTER 2025-06-21 03:08 | Outpatient (RCR) | payer MEDICARE, OTHER, SELFPAY | END 2025-07-20 15:49 | disposition home or self-care (01) | LOC: MM 03:08 | PROVIDERS: PCP Family Medicine; Visit Provider Internal Medicine | DX: Z51.81 Encounter for therapeutic drug level monitoring (principal); Z79.01 Long term (current) use of anticoagulants; I26.99 Other pulmonary embolism without acute cor pulmonale ==

== ENCOUNTER 2025-07-21 05:24 | Outpatient (RCR) | payer MEDICARE, OTHER, SELFPAY | END 2025-07-22 12:58 | disposition EXP | LOC: MM 05:24 | PROVIDERS: PCP Family Medicine; Visit Provider Internal Medicine | DX: Z51.81 Encounter for therapeutic drug level monitoring (principal); Z79.01 Long term (current) use of anticoagulants; I26.99 Other pulmonary embolism without acute cor pulmonale ==